=== PATIENT | female | born 1955 | race Caucasian/White ===

== ENCOUNTER → 2016-12-12 | Outpatient (CLI) | payer OTHER ==
[~2016-12-12] MED LIST: ALBINS INH; BRVIN INH; GLC5 PO; GLIP5TAB3 PO; INSDGIPEN SC; SIMV40TA2 PO; SITA1TAB27 PO; SULF800T23 PO
--- NOTE | 2016-12-12 14:07 | DIAGNOSTIC IMAGING REPORT ---
TWO VIEW CHEST CLINICAL HISTORY: Bronchiectasis exacerbation. FINDINGS: PA and lateral chest radiographs are compared to study dated 12/23/2015. Correlation is made with chest CT dated 10/13/2011. The PA view is degraded by patient rotation. The cardiomediastinal heart is enlarged and there is atherosclerotic calcification of the thoracic aorta. Pulmonary vasculature is noncongested. Chronic interstitial thickening is unchanged. There is patchy airspace consolidation the left mid to lower lung. A small left pleural effusion is noted. The right lung appears clear. There is no pneumothorax. The skeletal structures are osteopenic. The bony thorax appears intact. IMPRESSION: 1. There is patchy airspace consolidation an the left mid to lower lung and a small left pleural effusion. This likely represents pneumonia/aspiration pneumonitis. Clinical correlation will be required and radiographic follow-up to resolution is recommended. 2. Cardiac enlargement without radiographic evidence of congestive failure. Electronically signed by: Rosendo Murguia M.D. 12/12/2016 2:05 PM Dictated Date/Time: 12/12/2016 2:04 PM
== END | disposition home or self-care (01) ==
LOC: C.RAD1850 13:35
PROVIDERS: ATTEND Physician Assistant
DX: J47.1 Bronchiectasis with (acute) exacerbation (principal); J90 Pleural effusion, not elsewhere classified; I51.7 Cardiomegaly

== ENCOUNTER → 2017-01-08 | Outpatient (CLI) | payer OTHER ==
--- NOTE | 2017-01-08 14:58 | DIAGNOSTIC IMAGING REPORT ---
CHEST 2 VIEWS ROUTINE CLINICAL HISTORY: J18.9 [id number] pneumonia COMPARISON STUDY: 12/12/2016 FINDINGS: Improving left basilar parenchymal infiltrate. Minimal left basilar residual. Right lung remains clear. Mild stable cardiomegaly. IMPRESSION: Improving left basilar infiltrate with minimal residual. Mild chronic prominence of pulmonary vasculature. The above report was generated using voice recognition software. It may contain grammatical, syntax or spelling errors. Electronically signed by: Helio Hartley M.D. 01/08/2017 2:57 PM Dictated Date/Time: 01/08/2017 2:56 PM
== END | disposition home or self-care (01) ==
LOC: C.RAD1850 14:45
PROVIDERS: ATTEND Physician Assistant
DX: J18.9 Pneumonia, unspecified organism (principal)

== ENCOUNTER → 2017-08-29 | Outpatient (CLI) | payer OTHER ==
--- NOTE | 2017-08-29 13:06 | DIAGNOSTIC IMAGING REPORT ---
CHEST 2 VIEWS ROUTINE HISTORY: 62 years-old Female R05 [id number] Abnormal chest [id number] acute cough COMPARISON: Chest radiograph 11/07/2016, a 12/06/2016 and 12/23/2015 TECHNIQUE: PA and lateral views of the chest FINDINGS: Cardiac silhouette is upper limits of normal in size. Atherosclerosis of the aorta. Mild biapical pleural-parenchymal scarring without pneumothorax. The right lung is clear. No large pleural effusion. Persistent mild blunting of the left costophrenic angle with subsegmental left basilar opacities appear unchanged from most recent comparison study 01/08/2017. Bones of the chest appear grossly intact. IMPRESSION: Unchanged ill-defined opacities about the left lung base appear stable from comparison study 01/08/2017. Residual infectious or inflammatory pneumonitis or postinflammatory scarring are differential considerations. The above report was generated using voice recognition software. It may contain grammatical, syntax or spelling errors. Electronically signed by: Mark Funez M.D. 08/29/2017 1:05 PM Dictated Date/Time: 08/29/2017 1:03 PM
== END | disposition home or self-care (01) ==
LOC: C.RAD1850 12:46
PROVIDERS: ATTEND Physician Assistant
DX: R05 Cough (principal); R91.8 Other nonspecific abnormal finding of lung field

== ENCOUNTER 2020-10-29 19:38 | Inpatient (IN) ==
[2020-10-29] MEDS ORDERED: dexAMETHasone**PF** 10 MG/ML VIAL IV ONE (19:51)
[2020-10-29] MEDS ORDERED: ALBUT/IPRATROP 3MG/0.5MG NEB 3 ML VIAL NEB STA ×2 (19:51→21:38)
--- NOTE | 2020-10-29 20:00 | Emergency Department Note ---
Impression & Plan Acute exacerbation of chronic obstructive airways disease, Hypoxia, Elevated troponin I level, Acute UTI (urinary tract infection) ED Provider Note NAME: ANGELA SCHAEFER AGE: 65 SEX: F : 1955 ARRIVES VIA: Walk-In INFORMANT: Patient, ED PROVIDER(S): Roney Lewis DO CHIEF COMPLAINT: Difficulty breathing HPI: The patient is a 65-year-old female who presented to the emergency department with her significant other for an evaluation of difficulty breathing. The patient states that she was around relatives who are younger who are all having upper respiratory symptoms. She started having difficulty breathing over the course the last 3 days. Symptoms became significantly worse yesterday. She has a cough which is productive. She also complains of fever. She has a history of COPD as well as daily tobacco use. She states that she started having cough over the course of the last few days which is constant. She states she has no nausea or vomiting. She did have a fever. She does have oxygen at home but does not use it every day. She does have bronchodilator treatments at home she has been using all of her outpatient medication without relief. She states her symptoms are worsening significantly with any ambulation. She denies having any lower extremity swelling or pain. She was not seen by her primary care physician for the symptoms. ROS: See above HPI for pertinent positives & negatives. A total of 10 systems reviewed and were otherwise negative. PAST MEDICAL HISTORY: See Below PAST SURGICAL HISTORY: See Below FAMILY HISTORY: See Below SOCIAL HISTORY: See Below HOME MEDICATIONS: See Below ALLERGIES: See Below VITALS: See Below PHYSICAL EXAMINATION: GENERAL: The patient is awake and alert. She is very anxious appearing. EYES: The conjunctivae are clear. The pupils are round and reactive. EARS, NOSE, MOUTH AND THROAT: The nose is without any evidence of any deformity. NECK: The neck is nontender and supple. RESPIRATORY: Diminished breath sounds are noted throughout. Scattered rhonchi was noted in all lung buenrostro. There was significant conversational dyspnea. CARDIOVASCULAR: Regular rate and rhythm noted there no murmurs rubs or gallops normal S1 normal S2. GASTROINTESTINAL: The abdomen is soft. Abdomen is nontender. MUSCULOSKELETAL/EXTREMITIES: There is no evidence of gross deformity full range of motion is noted in the hips and shoulders. SKIN: There is no obvious evidence of any rash. There are no petechiae, pallor or cyanosis noted. NEUROLOGIC: Patient is awake alert and oriented x3. MEDICAL DECISION MAKING: The patient is a 65-year-old female who presented to the emergency department for an evaluation of difficulty breathing. The patient was found to have a fever as well as physical exam consistent with a COPD exacerbation. She was treated with IV steroids as well as bronchodilator therapy. She was reevaluated multiple times. She was found to have signs of urinary tract infection on urinalysis. She was started on IV antibiotic in the emergency department as well. She continued to have hypoxia and significant oxygen demand. For this reason I discussed her case with the on-call [facility]. They have agreed to evaluate the patient in the emergency department. Triage Nursing notes reviewed. Prior medical records reviewed Vital Signs: reviewed and remarkable for elevated blood pressure tachycardia and hypoxia. Differential diagnosis: Reactive airway disease, pneumonia, pneumothorax, COPD, CHF, infections, cardiac ischemia, pulmonary embolism, musculoskeletal, gastrointestinal, as well as other pathologies. ER treatment provided: See below Diagnostics interpreted by me: ECG: EKG was obtained in the emergency department. My interpretation is sinus tachycardia 100 bpm. There was no ectopy. Poor R wave progression was noted. This was compared to a tracing from September 292017. No significant changes were noted. Cardiac Monitoring: An order was placed for continuous cardiac monitoring. The monitor shows a rate of 108 bpm with sinus tachycardia rhythm. Laboratory studies: As stated above and show below. Imaging studies: See below Consultation(s): I discussed this case with Dr. Meng who is on-call for the [facility] group. She will evaluate the patient in the emergency department. ED COURSE: Procedures: none PDMP:reviewed and no issues Critical Care: I have personally spent greater than 45 minutes of critical care time in the direct management of this patient. This includes bedside care, interpretation of diagnostic studies, and testing, discussion with consultants, patient, and family members, and other required patient management activities. This 45 minutes is in excess of all separately billable procedures. Past Med/Surg History Medical History Bronchiectasis COPD (chronic obstructive pulmonary disease) History of pneumonia Hx of multiple pulmonary nodules Hypoxia MRSA (methicillin resistant Staphylococcus aureus) septicemia Recurrent bronchiectasis (11/01/11) Tobacco use Social History Smoking Status: Current every day smoker Tobacco Type: Cigarettes Preferred Language: Filipino Feels Safe at Home: Yes Allergies Allergies Allergy/AdvReac Type Severity Reaction Status Date / Time cephalexin Allergy Severe Unknown Verified 10/29/20 21:37 Iodinated Contrast Media Allergy Severe HIVES Verified 10/29/20 21:37 loracarbef Allergy Intermediate "THINK IT Verified 10/29/20 21:37 WAS A RASH" coffee (Coffea arabica) Allergy Unknown POSITIVE Verified 10/29/20 21:37 ALLERGY TEST mustard AdvReac Unknown POSITIVE Verified 10/29/20 21:37 ALLERGY TEST Home Meds Home Medications Medication Instructions Recorded Confirmed aspirin 81 mg tablet,delayed 81 mg PO DAILY 02/20/19 10/29/20 release metoprolol tartrate 25 mg tablet 25 mg PO BID 02/20/19 10/29/20 multivitamin 1 cap PO DAILY 02/20/19 10/29/20 pantoprazole 40 mg tablet,delayed 40 mg PO DAILY 02/20/19 10/29/20 release acetaminophen 325 mg tablet 325 mg PO Q4H PRN tab 10/03/19 10/29/20 apremilast [Otezla] 30 mg PO BID 10/29/20 10/29/20 clonazepam 1 mg PO BID PRN 10/29/20 10/29/20 ipratropium-albuterol 3 ml INH QID PRN 10/29/20 10/29/20 Previous Rx's Medication Instructions Recorded budesonide-formoterol HFA 160 2 puffs INH BID #10.2 gm 04/14/19 mcg-4.5 mcg/actuation aerosol inhaler albuterol sulfate 90 mcg/actuation 2 inh INH QID #18 g 12/08/19 aerosol inhaler tiotropium bromide 1.25 2 inh INHALATION DAILY #4 g 02/16/20 mcg/actuation mist for inhalation Results & Data (ED) Vital Signs Vital Signs - 24 hr 10/29/20 19:39 10/29/20 19:45 10/29/20 20:01 Temperature 37.7 C H Temperature Source Temporal Artery Scan Pulse Rate 105 H 99 H Pulse Rate [Apical] Pulse Rate from SpO2 Sensor 98 H Pulse Rhythm [Apical] Pulse Strength [Apical] Respiratory Rate 24 29 H Respiratory Effort / Characteristics Non-Labored Spontaneous Respiratory Depth Normal Normal Respiratory Pattern Regular Regular Blood Pressure 119/74 132/87 Blood Pressure Mean 89 102 Blood Pressure Position Sitting Pulse Oximetry 85 L 85 L 94 Oxygen Delivery Method Room Air Nasal Cannula Oxygen Flow Rate 3 Sepsis Recent Fever Within 48 Hours No Sepsis New/Unexplained Change in Mental Status No Sepsis Action Taken by Nursing No Action Required Pulse Oximetry Post Tiitration 93 10/29/20 20:07 10/29/20 20:16 10/29/20 21:00 Temperature Temperature Source Pulse Rate 104 H Pulse Rate [Apical] 101 H Pulse Rate from SpO2 Sensor 104 H Pulse Rhythm [Apical] Regular Pulse Strength [Apical] Normal Respiratory Rate 24 30 H Respiratory Effort / Characteristics Spontaneous Short of Breath Respiratory Depth Normal Respiratory Pattern Blood Pressure 128/79 Blood Pressure Mean 95 Blood Pressure Position Pulse Oximetry 93 3 L 95 Oxygen Delivery Method Nasal Cannula Nasal Cannula Oxygen Flow Rate 3 3 Sepsis Recent Fever Within 48 Hours Sepsis New/Unexplained Change in Mental Status Sepsis Action Taken by Nursing Pulse Oximetry Post Tiitration 10/29/20 21:34 10/29/20 21:52 10/29/20 22:00 Temperature Temperature Source Pulse Rate 103 H Pulse Rate [Apical] 101 H Pulse Rate from SpO2 Sensor 104 H Pulse Rhythm [Apical] Pulse Strength [Apical] Respiratory Rate 20 22 32 H Respiratory Effort / Characteristics Short of Breath Spontaneous Respiratory Depth Respiratory Pattern Blood Pressure 145/90 H Blood Pressure Mean 108 Blood Pressure Position Pulse Oximetry 91 91 91 Oxygen Delivery Method Nasal Cannula Nasal Cannula Oxygen Flow Rate 3 Sepsis Recent Fever Within 48 Hours Sepsis New/Unexplained Change in Mental Status Sepsis Action Taken by Nursing Pulse Oximetry Post Tiitration Home Medications Current Medication List: was personally reviewed by me Laboratory Data Attestation: I reviewed the patient's lab results. Result diagrams: 10/29/20 20:17 10/29/20 20:17 Lab Results 10/29/20 10/29/20 10/29/20 Range/Units 20:02 20:02 20:17 WBC 11.15 H (4.8-10.8) K/uL RBC 4.64 (4.2-5.4) M/uL Hgb 13.5 (12.0-16.0) g/dL Hct 41.0 (37-47) % MCV 88.4 (80-100) fL MCH 29.1 (25-34) pg MCHC 32.9 (32-36) g/dL RDW Std Deviation 43.1 (36.4-46.3) fL RDW Coeff of Tommy 13.3 (11.5-14.5) % Plt Count 241 (130-400) K/uL MPV 10.9 H (7.4-10.4) fL Immature Gran % (Auto) 0.2 % Neut % (Auto) 75.6 % Lymph % (Auto) 15.4 % [place] % (Auto) 7.8 % Eos % (Auto) 0.9 % Baso % (Auto) 0.1 % Neut # (Auto) 8.43 H (1.4-6.5) K/uL Lymph # (Auto) 1.72 (1.2-3.4) K/uL [place] # (Auto) 0.87 H (0.11-0.59) K/uL Eos # (Auto) 0.10 (0-0.5) K/uL Baso # (Auto) 0.01 (0-0.2) K/uL Immature Gran # (Auto) 0.02 (0.00-0.02) K/uL PT (9.0-12.0) Seconds INR (0.9-1.1) APTT (21.0-31.0) Seconds PTT Ratio VBG pH (7.36-7.41) VBG pCO2 (38-50) mmHg VBG pO2 mmHg VBG HCO3 mmol/L VBG O2 Saturation % VBG Base Excess mEq/L Barometric Pressure mm/Hg Sodium (136-145) mmol/L Potassium (3.5-5.1) mmol/L Chloride (98-107) mmol/L Carbon Dioxide (21-32) mmol/L Anion Gap (3-11) BUN (7-18) mg/dl Creatinine (0.6-1.2) mg/dl Est Cr Clr Drug Dosing Est GFR ( Amer) ml/min Est GFR (Non-Af Amer) ml/min BUN/Creatinine Ratio (10-20) Glucose (70-99) mg/dl Lactate (0.4-2.0) mmol/L Calcium (8.5-10.1) mg/dl Magnesium (1.8-2.4) mg/dl Total Bilirubin (0.2-1) mg/dl AST (15-37) U/L ALT (12-78) U/L Alkaline Phosphatase (45-117) U/L Troponin I (0-0.045) ng/ml Total Protein (6.4-8.2) gm/dl Albumin (3.4-5.0) gm/dl Globulin (2.5-4.0) gm/dl Albumin/Globulin Ratio (0.9-2) Procalcitonin (0-0.5) ng/ml Urine Color Urine Appearance (Clear) Urine pH (4.5-7.5) Ur Specific [place] (1.000-1.030) Urine Protein (Negative) Urine Glucose (UA) (Negative) Urine Ketones (Negative) Urine Blood (Negative) Urine Nitrite (Negative) Urine Bilirubin (Negative) Urine Urobilinogen (Negative) Ur Leukocyte Esterase (Negative) Urine WBC (Auto) (0-5) /hpf Urine RBC (Auto) (0-4) /hpf U Hyaline Cast (Auto) (0-5) /lpf U Epithel Cells (Auto) (0-5) /lpf Urine Bacteria (Auto) (Negative) COVID-19 Eval Order Covid19 at [facility] SARS-CoV-2 (PCR) NEGATIVE (Negative) 10/29/20 10/29/20 10/29/20 Range/Units 20:17 20:17 20:17 WBC (4.8-10.8) K/uL RBC (4.2-5.4) M/uL Hgb (12.0-16.0) g/dL Hct (37-47) % MCV (80-100) fL MCH (25-34) pg MCHC (32-36) g/dL RDW Std Deviation (36.4-46.3) fL RDW Coeff of Tommy (11.5-14.5) % Plt Count (130-400) K/uL MPV (7.4-10.4) fL Immature Gran % (Auto) % Neut % (Auto) % Lymph % (Auto) % [place] % (Auto) % Eos % (Auto) % Baso % (Auto) % Neut # (Auto) (1.4-6.5) K/uL Lymph # (Auto) (1.2-3.4) K/uL [place] # (Auto) (0.11-0.59) K/uL Eos # (Auto) (0-0.5) K/uL Baso # (Auto) (0-0.2) K/uL Immature Gran # (Auto) (0.00-0.02) K/uL PT 10.7 (9.0-12.0) Seconds INR 1.1 (0.9-1.1) APTT 26.7 (21.0-31.0) Seconds PTT Ratio 1.0 VBG pH (7.36-7.41) VBG pCO2 (38-50) mmHg VBG pO2 mmHg VBG HCO3 mmol/L VBG O2 Saturation % VBG Base Excess mEq/L Barometric Pressure mm/Hg Sodium 131 L (136-145) mmol/L Potassium 4.2 (3.5-5.1) mmol/L Chloride 99 (98-107) mmol/L Carbon Dioxide 26 (21-32) mmol/L Anion Gap 6.0 (3-11) BUN 12 (7-18) mg/dl Creatinine 0.82 (0.6-1.2) mg/dl Est Cr Clr Drug Dosing Not Reportable Est GFR ( Amer) 87.0 ml/min Est GFR (Non-Af Amer) 75.1 ml/min BUN/Creatinine Ratio 14.7 (10-20) Glucose 121 H (70-99) mg/dl Lactate 0.9 (0.4-2.0) mmol/L Calcium 10.8 H (8.5-10.1) mg/dl Magnesium 1.6 L (1.8-2.4) mg/dl Total Bilirubin 0.5 (0.2-1) mg/dl AST 47 H (15-37) U/L ALT 45 (12-78) U/L Alkaline Phosphatase 214 H (45-117) U/L Troponin I 0.068 H* (0-0.045) ng/ml Total Protein 7.9 (6.4-8.2) gm/dl Albumin 3.3 L (3.4-5.0) gm/dl Globulin 4.6 H (2.5-4.0) gm/dl Albumin/Globulin Ratio 0.7 L (0.9-2) Procalcitonin (0-0.5) ng/ml Urine Color Urine Appearance (Clear) Urine pH (4.5-7.5) Ur Specific [place] (1.000-1.030) Urine Protein (Negative) Urine Glucose (UA) (Negative) Urine Ketones (Negative) Urine Blood (Negative) Urine Nitrite (Negative) Urine Bilirubin (Negative) Urine Urobilinogen (Negative) Ur Leukocyte Esterase (Negative) Urine WBC (Auto) (0-5) /hpf Urine RBC (Auto) (0-4) /hpf U Hyaline Cast (Auto) (0-5) /lpf U Epithel Cells (Auto) (0-5) /lpf Urine Bacteria (Auto) (Negative) COVID-19 Eval Order SARS-CoV-2 (PCR) (Negative) 10/29/20 10/29/20 10/29/20 Range/Units 20:17 20:17 20:57 WBC (4.8-10.8) K/uL RBC (4.2-5.4) M/uL Hgb (12.0-16.0) g/dL Hct (37-47) % MCV (80-100) fL MCH (25-34) pg MCHC (32-36) g/dL RDW Std Deviation (36.4-46.3) fL RDW Coeff of Tommy (11.5-14.5) % Plt Count (130-400) K/uL MPV (7.4-10.4) fL Immature Gran % (Auto) % Neut % (Auto) % Lymph % (Auto) % [place] % (Auto) % Eos % (Auto) % Baso % (Auto) % Neut # (Auto) (1.4-6.5) K/uL Lymph # (Auto) (1.2-3.4) K/uL [place] # (Auto) (0.11-0.59) K/uL Eos # (Auto) (0-0.5) K/uL Baso # (Auto) (0-0.2) K/uL Immature Gran # (Auto) (0.00-0.02) K/uL PT (9.0-12.0) Seconds INR (0.9-1.1) APTT (21.0-31.0) Seconds PTT Ratio VBG pH 7.45 H (7.36-7.41) VBG pCO2 38 (38-50) mmHg VBG pO2 64 mmHg VBG HCO3 26 mmol/L VBG O2 Saturation 94.1 % VBG Base Excess 1.7 mEq/L Barometric Pressure 731.1 mm/Hg Sodium (136-145) mmol/L Potassium (3.5-5.1) mmol/L Chloride (98-107) mmol/L Carbon Dioxide (21-32) mmol/L Anion Gap (3-11) BUN (7-18) mg/dl Creatinine (0.6-1.2) mg/dl Est Cr Clr Drug Dosing Est GFR ( Amer) ml/min Est GFR (Non-Af Amer) ml/min BUN/Creatinine Ratio (10-20) Glucose (70-99) mg/dl Lactate (0.4-2.0) mmol/L Calcium (8.5-10.1) mg/dl Magnesium (1.8-2.4) mg/dl Total Bilirubin (0.2-1) mg/dl AST (15-37) U/L ALT (12-78) U/L Alkaline Phosphatase (45-117) U/L Troponin I (0-0.045) ng/ml Total Protein (6.4-8.2) gm/dl Albumin (3.4-5.0) gm/dl Globulin (2.5-4.0) gm/dl Albumin/Globulin Ratio (0.9-2) Procalcitonin < 0.05 (0-0.5) ng/ml Urine Color Dark Yellow Urine Appearance Turbid A (Clear) Urine pH 6.0 (4.5-7.5) Ur Specific [place] 1.019 (1.000-1.030) Urine Protein 1+ H (Negative) Urine Glucose (UA) Negative (Negative) Urine Ketones Trace H (Negative) Urine Blood 1+ H (Negative) Urine Nitrite Negative (Negative) Urine Bilirubin 1+ H (Negative) Urine Urobilinogen Negative (Negative) Ur Leukocyte Esterase 3+ H (Negative) Urine WBC (Auto) >30 H (0-5) /hpf Urine RBC (Auto) 10-30 H (0-4) /hpf U Hyaline Cast (Auto) 1-5 (0-5) /lpf U Epithel Cells (Auto) >30 H (0-5) /lpf Urine Bacteria (Auto) 4+ H (Negative) COVID-19 Eval Order SARS-CoV-2 (PCR) (Negative) Administered Medications Discontinued Medications Albuterol (Albut/Ipratrop 3mg/0.5mg Neb 3 Ml Vial) 3 ml NEB NOW STA Stop: 10/29/20 19:52 Last Admin: 10/29/20 20:06 Dose: 3 ml Documented by: [id number] Albuterol (Albut/Ipratrop 3mg/0.5mg Neb 3 Ml Vial) 3 ml NEB NOW STA Stop: 10/29/20 21:39 Last Admin: 10/29/20 21:52 Dose: 3 ml Documented by: [id number] Dexamethasone Sodium Phosphate (DexamethasonePf 10 Mg/Ml Vial) 10 mg IV NOW ONE Stop: 10/29/20 19:52 Last Admin: 10/29/20 20:56 Dose: 10 mg Documented by: [id number] Magnesium Sulfate/Dextrose (Magnesium Sulfate / D5w) 1 gm in 100 mls @ 100 mls/hr IV Q1H JOSE R Stop: 10/29/20 23:07 Last Admin: 10/29/20 22:34 Dose: 100 mls/hr Documented by: [id number] Infusion: 10/29/20 22:33 Dose: 100 mls/hr Documented by: [id number] Admin: 10/29/20 21:33 Dose: 100 mls/hr Documented by: [id number] Imaging Data Radiologist's Impression: Chest X-Ray 10/29/20 19:51 XR chest 1V portable HISTORY: 65 years-old Female SEPSIS acute sepsis COMPARISON: 10/07/2019, chest CT 10/04/2017. TECHNIQUE: Portable AP view of the chest FINDINGS: Cardiac silhouette is enlarged. Mild bibasilar opacities, left greater than right appear unchanged. Degenerative changes of the shoulders and spine. No pneumothorax, pleural effusion or overt pulmonary edema. IMPRESSION: 1. Cardiomegaly without pulmonary edema. 2. Unchanged left greater than right bibasilar atelectasis/fibrosis ACT 112: Negative or not required by law. The above report was generated using voice recognition software. It may contain grammatical, syntax or spelling errors. Electronically signed by: Pepe Funez M.D. 10/29/2020 9:16 PM Discharge Plan Visit Data Chief Complaint: Shortness of Breath/Dyspnea Stated Complaint: SOB ED Provider: Roney Lewis Discharge Problem: Acute exacerbation of chronic obstructive airways disease, Hypoxia, Elevated troponin I level, Acute UTI (urinary tract infection) Patient Disposition: Admitted As Inpatient Condition: Good Discharge Instructions Interventions: ED Discharge Assessment Last Done: 10/29/20 23:25
[2020-10-29 20:31] LABS: Basophils # (auto) 0.01 K/uL (0-0.2); Basophils % (auto) 0.1 %; Eosinophils % (auto) 0.9 %; Hemoglobin 13.5 g/dL (12.0-16.0); Immature Granulocytes # (auto) 0.02 K/uL (0.00-0.02); Immature Granulocytes % (auto) 0.2 %; Lymphocytes # (auto) 1.72 K/uL (1.2-3.4); Lymphocytes % (auto) 15.4 %; Mean Corpuscular Hemoglobin 29.1 pg (25-34); Mean Corpuscular Hgb Conc 32.9 g/dL (32-36); Mean Corpuscular Volume 88.4 fL (80-100); Mean Platelet Volume 10.9 fL (7.4-10.4); Monocytes # (auto) 0.87 K/uL (0.11-0.59); Monocytes % (auto) 7.8 %; Neutrophils # (auto) 8.43 K/uL (1.4-6.5); Neutrophils % (auto) 75.6 %; Platelet Count 241 K/uL (130-400); RDW Coefficient of Variation 13.3 % (11.5-14.5); RDW Standard Deviation 43.1 fL (36.4-46.3); Red Blood Count 4.64 M/uL (4.2-5.4); White Blood Count 11.15 K/uL (4.8-10.8)
[2020-10-29 20:37] LABS: Base Excess VBG 1.7 mEq/L; Oxygen Saturation VBG 94.1 %; pH VBG 7.45 (7.36-7.41)
[2020-10-29 20:42] LABS: INR 1.1 (0.9-1.1); Partial Thromboplastin Time 26.7 Seconds (21.0-31.0); Prothrombin Time 10.7 Seconds (9.0-12.0)
[2020-10-29 20:49] LABS: Alanine Aminotransferase 45 U/L (12-78); Albumin Level 3.3 gm/dl (3.4-5.0); Aspartate Aminotransferase 47 U/L (15-37); BUN Creatinine Ratio 14.7 (10-20); Blood Urea Nitrogen 12 mg/dl (7-18); Calcium 10.8 mg/dl (8.5-10.1); Carbon Dioxide 26 mmol/L (21-32); Chloride 99 mmol/L (98-107); Est GFR (Non-African American) 75.1 ml/min; Glucose 121 mg/dl (70-99); Magnesium 1.6 mg/dl (1.8-2.4); Potassium 4.2 mmol/L (3.5-5.1); Sodium 131 mmol/L (136-145)
[2020-10-29 21:00] LABS: Albumin Globulin Ratio 0.7 (0.9-2); Alkaline Phosphatase 214 U/L (45-117); Bilirubin,Total 0.5 mg/dl (0.2-1); Globulin 4.6 gm/dl (2.5-4.0); Total Protein 7.9 gm/dl (6.4-8.2); Troponin I 0.068 ng/ml (0-0.045)
--- NOTE | 2020-10-29 21:18 | XRay Report ---
XR chest 1V portable HISTORY: 65 years-old Female SEPSIS acute sepsis COMPARISON: 10/07/2019, chest CT 10/04/2017. TECHNIQUE: Portable AP view of the chest FINDINGS: Cardiac silhouette is enlarged. Mild bibasilar opacities, left greater than right appear unchanged. D egenerative changes of the shoulders and spine. No pneumothorax, pleural effusion or overt pulmonary edema. IMPRESSION: 1. Cardiomegaly without pulmonary edema. 2. Unchanged left greater than right bibasilar atelectasis/fibrosis ACT 112: Negative or not required by law. The above report was generated using voice recognition software. It may contain grammatical, syntax o r spelling errors. Electronically signed by: Pepe Funez M.D. 10/29/2020 9:16 PM
[2020-10-29 21:25] LABS: Appearance Urine Turbid (Clear); Bacteria Urine Automated 4+ (Negative); Blood Urine 1+ (Negative); Color Urine Dark Yellow; Epithelial Cell Urine Auto >30 /lpf (0-5); Glucose Urine UA Negative (Negative); Ketones Urine Trace (Negative); Leukocyte Esterase Urine 3+ (Negative); Nitrite Urine Negative (Negative); Protein Urine 1+ (Negative); Specific Gravity Urine 1.019 (1.000-1.030); Urobilinogen Urine Negative (Negative); WBC Urine Automated >30 /hpf (0-5)
[2020-10-29 21:30] LABS: Bilirubin Urine 1+ (Negative)
[2020-10-29] MEDS: MAGNESIUM SULFATE / D5W 1 GM/100 ML BAG IV SCH ×2 (21:33→22:34)
[2020-10-29] MEDS ORDERED: levoFLOXacin/D5W 750 MG/150 ML BAG IV STA (21:38)
--- NOTE | 2020-10-29 22:38 | History & Physical Report ---
Date of Service October 29, 2020 Assessment & Plan (1) Acute exacerbation of chronic obstructive airways disease: 65yo female with history of COPD, bronchiectasis, MRSA pulmonary infection presents with several days of fever/chills/SOB/nausea. Patient hypoxic on arrival requiring supplemental O2. Labs significant for elevated troponin and BNP. CXR unremarkable. Ddx to include acute exacerbation of COPD, bronchiectasis, developing PNA. ?CHF with elevated troponin and BNP - patient with no history of CHF. Does not appear volume overloaded on exam -Admit to PCU -Follow cultures -DuoNebs q 6 hours -Albuterol q 2 hours as needed -Continue Fluticasone/Vilanterol -Solumedrol 40mg IV TID -Tessalon PRN -Mucinex BID -Hypertonic saline nebs BID -Flutter valve -Empiric antibiotic coverage with Vancomycin and Cefepime in patient with history of MRSA PNA/bacteremia and bronchiectasis -Tylenol PRN pain or fever -Supplemental O2 as needed to maintain sats 88 - 92% -Patient Covid-19 NEGATIVE as tested in ER. She has been vaccinated x 2 with last dose being in May -[employer] panel requested -Consider CT chest Present on Admission?: Yes (2) Elevated troponin I level: Patient denies chest pain. EKG with non-specific changes -Trend troponin -Check 2D echo in AM -Continue ASA 81mg daily -Continue Metoprolol Present on Admission?: Yes (3) Recurrent bronchiectasis: As above -Vancomycin and Cefepime -Nebs, saline nebs Present on Admission?: Yes (4) Abnormal LFTs: Elevated AST and AP. Bili is WNL -Repeat in AM Present on Admission?: Yes (5) Psoriasis: Chronic -Continue Otezla (non-formulary), patient may take own if she has it F/E/N - Heplock. Mg repletion, monitor Na, regular diet as tolerated Ppx - Lovenox Code - Full Dispo - Admit to PCU Present on Admission?: Yes History of Present Illness Chief Complaint: SOB Primary Care Provider: Marta Greenwood Izabela Simms is a 65yo female with history of COPD, Bronchiectasis and prior MRSA infection presenting with 3-4 days of progressive SOB. Patient [place] and states that several family members were getting over URIs/illnesses. She reports developing a stuffy nose and headache 4-5 days ago then cough, fever/chills and SOB as well as nausea, diarrhea and fatigue. Symptoms progressive. She was extremely short of breath today. She denies cough, wheeze or sputum production. Denies chest pain or palpitations. No dysuria, abdominal pain Patient follows with Pulmonary for her history of bronchiectasis - last seen 09/2019 Patient with elevated temperature on arrival to ER at 37.7, tachycardic, tachypneic and hypoxic to 85% on room air. SHe was placed on NC with improvement ER Course: Albuterol, Dexamethasone 10mg IV, Magnesium 1gm Allergies Allergy/AdvReac Type Severity Reaction Status Date / Time cephalexin Allergy Severe Unknown Verified 10/29/20 21:37 Iodinated Contrast Media Allergy Severe HIVES Verified 10/29/20 21:37 loracarbef Allergy Intermediate "THINK IT Verified 10/29/20 21:37 WAS A RASH" coffee (Coffea arabica) Allergy Unknown POSITIVE Verified 10/29/20 21:37 ALLERGY TEST mustard AdvReac Unknown POSITIVE Verified 10/29/20 21:37 ALLERGY TEST Home Medications Medication Instructions Recorded Confirmed Type aspirin 81 mg tablet,delayed 81 mg PO DAILY 02/20/19 10/29/20 History release metoprolol tartrate 25 mg tablet 25 mg PO BID 02/20/19 10/29/20 History multivitamin 1 cap PO DAILY 02/20/19 10/29/20 History pantoprazole 40 mg tablet,delayed 40 mg PO DAILY 02/20/19 10/29/20 History release budesonide-formoterol HFA 160 2 puffs INH BID #10.2 gm 04/14/19 10/29/20 Rx mcg-4.5 mcg/actuation aerosol inhaler acetaminophen 325 mg tablet 325 mg PO Q4H PRN tab 10/03/19 10/29/20 History albuterol sulfate 90 mcg/actuation 2 inh INH QID #18 g 12/08/19 10/29/20 Rx aerosol inhaler tiotropium bromide 1.25 2 inh INHALATION DAILY #4 g 02/16/20 10/29/20 Rx mcg/actuation mist for inhalation apremilast [Otezla] 30 mg PO BID 10/29/20 10/29/20 History clonazepam 1 mg PO BID PRN 10/29/20 10/29/20 History ipratropium-albuterol 3 ml INH QID PRN 10/29/20 10/29/20 History Past Med/Surg History Medical History Bronchiectasis COPD (chronic obstructive pulmonary disease) History of pneumonia Hx of multiple pulmonary nodules Hypoxia MRSA (methicillin resistant Staphylococcus aureus) septicemia Psoriasis Recurrent bronchiectasis (11/01/11) Tobacco use Surgical History (Updated 10/30/20 @ 02:47 by Thais Meng DO) No significant past surgical history Social History Smoking Status: Current every day smoker Tobacco Type: Cigarettes Second Hand Exposure: No; Do You Dip or Chew Tobacco: No; Tobacco Cessation Education Requested by Patient: No Hx Alcohol Use: No Hx Substance Use: No Preferred Language: Swazi Communication Ability: Effective Beliefs That Will Affect Care: None Current Living Situation: Spouse Other Information That Helps Us Care for You: No Feels Safe at Home: Yes Safety Concerns: Feels Safe At This Time Assistive Devices: Oxygen - Continuous Assistive Devices Comment: 2L Review of Systems Review of Systems: All systems reviewed & are unremarkable except as noted in HPI & below Physical Exam Physical Exam: General: NAD, ill in appearance but non-toxic in appearance, AA&O x 4 Skin: warm, dry, intact, no rashes or lesions HEENT: NC/AT, PERRL, EOMI, anicteric sclera, conjunctiva without injection, external ear normal to inspection and nontender, nares patent, moist mucus membranes, dentition intact, no oropharyngeal lesions, neck supple, trachea midline, no LAD, no thyromegaly, no JVD Heart: +S1/S2, regular, tachycardic, no m/r/g Lungs: slightly tachypneic, equal air entry bilaterally, coarse breath sounds with diffuse rhonchi, scattered end-expiratory wheezing Abd: +BS, soft, NT/ND, no masses/organomegaly/ascites Ext: warm, 2+ pulses in UE/LE bilaterally, no clubbing/cyanosis or edema, firm nodule in left axilla, slightly tender Neuro: nonfocal, patient AA&O x 4, speech intact, no facial droop, moving all extremities on command with equal strength 5/5 Results & Data Results & Data ([facility]) Vital Signs (Past 12 Hours) Vital Signs Temp Pulse Pulse Resp BP Pulse Ox 10/29/20 21:52 101 H 22 91 10/29/20 21:34 20 91 10/29/20 21:00 104 H 30 H 128/79 95 10/29/20 20:16 3 L 10/29/20 20:07 101 H 24 93 10/29/20 20:01 99 H 29 H 132/87 94 10/29/20 19:45 85 L 10/29/20 19:39 37.7 C H 105 H 24 119/74 85 L Laboratory Results Laboratory Results WBC 11.15 K/uL (4.8-10.8) H 10/29/20 20:17 RBC 4.64 M/uL (4.2-5.4) 10/29/20 20:17 Hgb 13.5 g/dL (12.0-16.0) 10/29/20 20:17 Hct 41.0 % (37-47) 10/29/20 20:17 MCV 88.4 fL (80-100) 10/29/20 20:17 MCH 29.1 pg (25-34) 10/29/20 20:17 MCHC 32.9 g/dL (32-36) 10/29/20 20:17 RDW Std Deviation 43.1 fL (36.4-46.3) 10/29/20 20:17 RDW Coeff of Tommy 13.3 % (11.5-14.5) 10/29/20 20:17 Plt Count 241 K/uL (130-400) 10/29/20 20:17 MPV 10.9 fL (7.4-10.4) H 10/29/20 20:17 Immature Gran % (Auto) 0.2 % 10/29/20 20:17 Neut % (Auto) 75.6 % 10/29/20 20:17 Lymph % (Auto) 15.4 % 10/29/20 20:17 Scott % (Auto) 7.8 % 10/29/20 20:17 Eos % (Auto) 0.9 % 10/29/20 20:17 Baso % (Auto) 0.1 % 10/29/20 20:17 Neut # (Auto) 8.43 K/uL (1.4-6.5) H 10/29/20 20:17 Lymph # (Auto) 1.72 K/uL (1.2-3.4) 10/29/20 20:17 Scott # (Auto) 0.87 K/uL (0.11-0.59) H 10/29/20 20:17 Eos # (Auto) 0.10 K/uL (0-0.5) 10/29/20 20:17 Baso # (Auto) 0.01 K/uL (0-0.2) 10/29/20 20:17 Immature Gran # (Auto) 0.02 K/uL (0.00-0.02) 10/29/20 20:17 PT 10.7 Seconds (9.0-12.0) 10/29/20 20:17 INR 1.1 (0.9-1.1) 10/29/20 20:17 APTT 26.7 Seconds (21.0-31.0) 10/29/20 20:17 PTT Ratio 1.0 10/29/20 20:17 VBG pH 7.45 (7.36-7.41) H 10/29/20 20:17 VBG pCO2 38 mmHg (38-50) 10/29/20 20:17 VBG pO2 64 mmHg 10/29/20 20:17 VBG HCO3 26 mmol/L 10/29/20 20:17 VBG O2 Saturation 94.1 % 10/29/20 20:17 VBG Base Excess 1.7 mEq/L 10/29/20 20:17 Barometric Pressure 731.1 mm/Hg 10/29/20 20:17 Sodium 131 mmol/L (136-145) L 10/29/20 20:17 Potassium 4.2 mmol/L (3.5-5.1) 10/29/20 20:17 Chloride 99 mmol/L (98-107) 10/29/20 20:17 Carbon Dioxide 26 mmol/L (21-32) 10/29/20 20:17 Anion Gap 6.0 (3-11) 10/29/20 20:17 BUN 12 mg/dl (7-18) 10/29/20 20:17 Creatinine 0.82 mg/dl (0.6-1.2) 10/29/20 20:17 Est Cr Clr Drug Dosing Not Reportable 10/29/20 20:17 Est GFR ( Amer) 87.0 ml/min 10/29/20 20:17 Est GFR (Non-Af Amer) 75.1 ml/min 10/29/20 20:17 BUN/Creatinine Ratio 14.7 (10-20) 10/29/20 20:17 Glucose 121 mg/dl (70-99) H 10/29/20 20:17 Lactate 0.9 mmol/L (0.4-2.0) 10/29/20 20:17 Calcium 10.8 mg/dl (8.5-10.1) H 10/29/20 20:17 Magnesium 1.6 mg/dl (1.8-2.4) L 10/29/20 20:17 Total Bilirubin 0.5 mg/dl (0.2-1) 10/29/20 20:17 AST 47 U/L (15-37) H 10/29/20 20:17 ALT 45 U/L (12-78) 10/29/20 20:17 Alkaline Phosphatase 214 U/L (45-117) H 10/29/20 20:17 Troponin I 0.068 ng/ml (0-0.045) H* 10/29/20 20:17 NT-Pro-B Natriuret Pep 1956 pg/ml (0-900) H 10/29/20 20:17 Total Protein 7.9 gm/dl (6.4-8.2) 10/29/20 20:17 Albumin 3.3 gm/dl (3.4-5.0) L 10/29/20 20:17 Globulin 4.6 gm/dl (2.5-4.0) H 10/29/20 20:17 Albumin/Globulin Ratio 0.7 (0.9-2) L 10/29/20 20:17 Procalcitonin < 0.05 ng/ml (0-0.5) 10/29/20 20:17 Urine Color Dark Yellow 10/29/20 20:57 Urine Appearance Turbid (Clear) A 10/29/20 20:57 Urine pH 6.0 (4.5-7.5) 10/29/20 20:57 Ur Specific [place] 1.019 (1.000-1.030) 10/29/20 20:57 Urine Protein 1+ (Negative) H 10/29/20 20:57 Urine Glucose (UA) Negative (Negative) 10/29/20 20:57 Urine Ketones Trace (Negative) H 10/29/20 20:57 Urine Blood 1+ (Negative) H 10/29/20 20:57 Urine Nitrite Negative (Negative) 10/29/20 20:57 Urine Bilirubin 1+ (Negative) H 10/29/20 20:57 Urine Urobilinogen Negative (Negative) 10/29/20 20:57 Ur Leukocyte Esterase 3+ (Negative) H 10/29/20 20:57 Urine WBC (Auto) >30 /hpf (0-5) H 10/29/20 20:57 Urine RBC (Auto) 10-30 /hpf (0-4) H 10/29/20 20:57 U Hyaline Cast (Auto) 1-5 /lpf (0-5) 10/29/20 20:57 U Epithel Cells (Auto) >30 /lpf (0-5) H 10/29/20 20:57 Urine Bacteria (Auto) 4+ (Negative) H 10/29/20 20:57 COVID-19 Eval Order Covid19 at [facility] 10/29/20 20:02 SARS-CoV-2 (PCR) NEGATIVE (Negative) 10/29/20 20:02 Impressions Chest X-Ray 10/29/20 19:51 XR chest 1V portable HISTORY: 65 years-old Female SEPSIS acute sepsis COMPARISON: 10/07/2019, chest CT 10/04/2017. TECHNIQUE: Portable AP view of the chest FINDINGS: Cardiac silhouette is enlarged. Mild bibasilar opacities, left greater than right appear unchanged. Degenerative changes of the shoulders and spine. No pneumothorax, pleural effusion or overt pulmonary edema. IMPRESSION: 1. Cardiomegaly without pulmonary edema. 2. Unchanged left greater than right bibasilar atelectasis/fibrosis ACT 112: Negative or not required by law. The above report was generated using voice recognition software. It may contain grammatical, syntax or spelling errors. Electronically signed by: Pepe Funez M.D. 10/29/2020 9:16 PM ECG Additional Comments: EKG with NSR at 100, normal axis, no acute ischemic changes, nonspecific ST-T wave abnormalities PG Care Time/CCT Total # of Minutes Spent Total Time Spent with Patient: Total time spent is greater than 50% in coordination of care (as documented) at patient's floor/unit and/or counseling patient: Coding Level of Care Code 82204 Initial Inpt Care Lvl 3 Diagnoses Acute exacerbation of chronic obstructive airways disease J44.1 Elevated troponin I level R77.8 Recurrent bronchiectasis J47.9 Abnormal LFTs R94.5 Psoriasis L40.9
[2020-10-29] MEDS ORDERED: ALBUTEROL 0.5% NEB SOLN 2.5 MG/0.5 ML VIAL NEB PRN (23:53)
[2020-10-29] MEDS ORDERED: ONDANSETRON INJ 2 MG/ML 2 ML VIAL IV PRN (23:53)
[2020-10-29] MEDS ORDERED: VANCOMYCIN CONSULT ACTIVE PRN (23:53)
[2020-10-29] MEDS ORDERED: ACETAMINOPHEN 325 MG TAB PO PRN (23:53)
[2020-10-30] MEDS ORDERED: SODIUM CHLORIDE 0.9% 1000ML 1,000 ML IV SCH (00:15)
[2020-10-30 00:16] LABS: NT Pro B Type Natriuretic Pept 1956 pg/ml (0-900)
[2020-10-30] MEDS ORDERED: VANCOMYCIN HCL 2,000 MG in SODIUM CHLORIDE 0.9% 500 ML IV STA (00:21)
[2020-10-30] MEDS: CEFEPIME 2,000 MG in SYRINGE 0 ML IV SCH ×2 (00:48→09:30)
[2020-10-30] MEDS: ALBUT/IPRATROP 3MG/0.5MG NEB 3 ML VIAL INH SCH ×3 (07:25→15:37)
[2020-10-30] MEDS: SODIUM CHLOR 7% 4 ML NEB NEB SCH ×2 (07:25→19:12)
[2020-10-30 07:36] LABS: Basophils # (auto) 0.01 K/uL (0-0.2); Basophils % (auto) 0.1 %; Hematocrit (blood only) 39.4 % (37-47); Hemoglobin 12.7 g/dL (12.0-16.0); Immature Granulocytes # (auto) 0.02 K/uL (0.00-0.02); Immature Granulocytes % (auto) 0.2 %; Lymphocytes # (auto) 0.81 K/uL (1.2-3.4); Lymphocytes % (auto) 8.5 %; Mean Corpuscular Hemoglobin 29.1 pg (25-34); Mean Corpuscular Hgb Conc 32.2 g/dL (32-36); Mean Corpuscular Volume 90.4 fL (80-100); Mean Platelet Volume 10.8 fL (7.4-10.4); Monocytes # (auto) 0.24 K/uL (0.11-0.59); Monocytes % (auto) 2.5 %; Neutrophils # (auto) 8.49 K/uL (1.4-6.5); Neutrophils % (auto) 88.7 %; Platelet Count 255 K/uL (130-400); RDW Coefficient of Variation 13.3 % (11.5-14.5); RDW Standard Deviation 44.2 fL (36.4-46.3); Red Blood Count 4.36 M/uL (4.2-5.4); White Blood Count 9.57 K/uL (4.8-10.8)
[2020-10-30 08:01] LABS: Alanine Aminotransferase 39 U/L (12-78); Aspartate Aminotransferase 30 U/L (15-37); BUN Creatinine Ratio 18.1 (10-20); Bilirubin Direct 0.1 mg/dl (0-0.2); Blood Urea Nitrogen 13 mg/dl (7-18); Calcium 10.1 mg/dl (8.5-10.1); Carbon Dioxide 26 mmol/L (21-32); Chloride 104 mmol/L (98-107); Creatinine Clr Calc Pharmacy 80.9 ml/min; Est GFR (African American) 103.6 ml/min; Est GFR (Non-African American) 89.4 ml/min; Glucose 260 mg/dl (70-99); Potassium 4.2 mmol/L (3.5-5.1); Sodium 135 mmol/L (136-145)
[2020-10-30 08:06] LABS: Alkaline Phosphatase 197 U/L (45-117); Bilirubin,Total 0.3 mg/dl (0.2-1); Total Protein 7.4 gm/dl (6.4-8.2); Troponin I < 0.015 ng/ml (0-0.045)
--- NOTE | 2020-10-30 08:29 | Hospitalist Progress Note ---
Date of Service October 30, 2020 Assessment & Plan (1) Acute exacerbation of chronic obstructive airways disease: 65 yo F with hx COPD, MRSA PNA, bronchiectasis admitted for new hypoxia and cough. 1. COPD Exacerbation - appears to be secondary to viral exposure around family members - wean oxygen as able with goal O2 88-92% - change in cough from baseline - Duonebs scheduled QID, PRN for SOB breakthrough - solumedrol 40 IV daily - azithromycin 500 x 3 days - continue home inhaler regimen (LAMA + LABA) - possible pneumonia - low suspicion with procal negative x 2, no focal lung abnormalities on exam or chest xr, improved sx with duonebs - d/c vanc, cefepime - blood cultures pending - VBG WNL, lactate 0.9 Elevated Troponin/hx pulmonary HTN - 0.068, followed by negative troponin - low concern for cardiac event without ekg changes, chest pain complaints - pro BNP 1955 - previous echo in 2018 with dx pulmonary HTN, repeat echo pending Elevated BSG - Sliding scale with goal 120 -160, CF 50, CR 25. - possibly secondary to steroids, A1c pending Elevated LFTs - AST 47, ALT 45, Alk Phos 214 - follow up outpatient Asymptomatic bacteriuria - no urinary sx complaints - urinary culture pending, no indication to treat DVT ppx: lovenox FEN/GI: regular Bowel regimen: prn miralax Code Status: full code Dispo: PCU (2) Abnormal LFTs: (3) Psoriasis: (4) Elevated troponin I level: Admission and Anticipated Discharge Date Admission Date: October 29, 2020 Supervising Physician Co-Signing Physician Notes I personally saw and examined the patient. I verified all perkins points and agree with Dr Orozco, resident physician with the following exceptions and/or additions: 65-year-old female history of COPD, progressive shortness of breath of 3 to 4 days. Improving since admission with notable difference with duo nebs. and patient smoke but planning on quitting. O/E poor air entry posteriorly but no wheezing. A/P COPD exacerbation -continue IV steroids, started azithromycin, continue duo nebs. Procalcitonin negative and no pneumonia on chest x-ray or exam therefore will discontinue further cefepime or vancomycin. Nicotine addiction -declines nicotine patch at this time Subjective No ovn events. states that she started feeling ill 3 days ago on sunday, had a nonproductive "barking" cough, and generally felt fatigued. She states her daughter and grandchildren who she was in [place] with had all recently passed sore throat symptoms between themselves. Denies any fevers at home,did have chills, fatigue, cough.some mild nausea on sunday. no peripheral swelling, SOB, CP. Feels considerably better now. Review of Systems Review of Systems: All systems reviewed & are unremarkable except as noted in Subjective Physical Exam Physical Exam: Constitutional: in no apparent distress, sitting up comfortably in bed. Eyes: EOMI, pupils equal and reactive bilaterally, no scleral icterus Cardiac: RRR, no murmurs, gallops or rubs. Normal S1, S2 Pulm: Diffuse end expiratory wheezes and rhonchi throughout all lung buenrostro, no focal diminished air sounds or crackles, breathing comfortably on 5L NC Abd: soft, nontender, nondistended, normal bowel sounds, no rebound or guarding Extremities: 2+ peripheral pulses, no edema Neuro: no focal deficits, moving all 4 limbs, A&Ox3 Results & Data Results & Data ([facility]) Vital Signs (Past 12 Hours) Laboratory Results WBC 9.57 K/uL (4.8-10.8) 10/30/20 07:19 RBC 4.36 M/uL (4.2-5.4) 10/30/20 07:19 Hgb 12.7 g/dL (12.0-16.0) 10/30/20 07:19 Hct 39.4 % (37-47) 10/30/20 07:19 MCV 90.4 fL (80-100) 10/30/20 07:19 MCH 29.1 pg (25-34) 10/30/20 07:19 MCHC 32.2 g/dL (32-36) 10/30/20 07:19 RDW Std Deviation 44.2 fL (36.4-46.3) 10/30/20 07:19 RDW Coeff of Tommy 13.3 % (11.5-14.5) 10/30/20 07:19 Plt Count 255 K/uL (130-400) 10/30/20 07:19 MPV 10.8 fL (7.4-10.4) H 10/30/20 07:19 Immature Gran % (Auto) 0.2 % 10/30/20 07:19 Neut % (Auto) 88.7 % 10/30/20 07:19 Lymph % (Auto) 8.5 % 10/30/20 07:19 Cecil % (Auto) 2.5 % 10/30/20 07:19 Eos % (Auto) 0.0 % 10/30/20 07:19 Baso % (Auto) 0.1 % 10/30/20 07:19 Neut # (Auto) 8.49 K/uL (1.4-6.5) H 10/30/20 07:19 Lymph # (Auto) 0.81 K/uL (1.2-3.4) L 10/30/20 07:19 Cecil # (Auto) 0.24 K/uL (0.11-0.59) 10/30/20 07:19 Eos # (Auto) 0.00 K/uL (0-0.5) 10/30/20 07:19 Baso # (Auto) 0.01 K/uL (0-0.2) 10/30/20 07:19 Immature Gran # (Auto) 0.02 K/uL (0.00-0.02) 10/30/20 07:19 PT 10.7 Seconds (9.0-12.0) 10/29/20 20:17 INR 1.1 (0.9-1.1) 10/29/20 20:17 APTT 26.7 Seconds (21.0-31.0) 10/29/20 20:17 PTT Ratio 1.0 10/29/20 20:17 VBG pH 7.45 (7.36-7.41) H 10/29/20 20:17 VBG pCO2 38 mmHg (38-50) 10/29/20 20:17 VBG pO2 64 mmHg 10/29/20 20:17 VBG HCO3 26 mmol/L 10/29/20 20:17 VBG O2 Saturation 94.1 % 10/29/20 20:17 VBG Base Excess 1.7 mEq/L 10/29/20 20:17 Barometric Pressure 731.1 mm/Hg 10/29/20 20:17 Sodium 135 mmol/L (136-145) L 10/30/20 07:19 Potassium 4.2 mmol/L (3.5-5.1) 10/30/20 07:19 Chloride 104 mmol/L (98-107) 10/30/20 07:19 Carbon Dioxide 26 mmol/L (21-32) 10/30/20 07:19 Anion Gap 5.0 (3-11) 10/30/20 07:19 BUN 13 mg/dl (7-18) 10/30/20 07:19 Creatinine 0.71 mg/dl (0.6-1.2) 10/30/20 07:19 Est Cr Clr Drug Dosing 80.9 ml/min 10/30/20 07:19 Est GFR ( Amer) 103.6 ml/min 10/30/20 07:19 Est GFR (Non-Af Amer) 89.4 ml/min 10/30/20 07:19 BUN/Creatinine Ratio 18.1 (10-20) 10/30/20 07:19 Glucose 260 mg/dl (70-99) H 10/30/20 07:19 Lactate 0.9 mmol/L (0.4-2.0) 10/29/20 20:17 Calcium 10.1 mg/dl (8.5-10.1) 10/30/20 07:19 Magnesium 1.6 mg/dl (1.8-2.4) L 10/29/20 20:17 Total Bilirubin 0.3 mg/dl (0.2-1) 10/30/20 07:19 Direct Bilirubin 0.1 mg/dl (0-0.2) 10/30/20 07:19 AST 30 U/L (15-37) 10/30/20 07:19 ALT 39 U/L (12-78) 10/30/20 07:19 Alkaline Phosphatase 197 U/L (45-117) H 10/30/20 07:19 Troponin I < 0.015 ng/ml (0-0.045) 10/30/20 07:19 NT-Pro-B Natriuret Pep 1956 pg/ml (0-900) H 10/29/20 20:17 Total Protein 7.4 gm/dl (6.4-8.2) 10/30/20 07:19 Albumin 3.0 gm/dl (3.4-5.0) L 10/30/20 07:19 Globulin 4.6 gm/dl (2.5-4.0) H 10/29/20 20:17 Albumin/Globulin Ratio 0.7 (0.9-2) L 10/29/20 20:17 Procalcitonin < 0.05 ng/ml (0-0.5) 10/30/20 07:19 Urine Color Dark Yellow 10/29/20 20:57 Urine Appearance Turbid (Clear) A 10/29/20 20:57 Urine pH 6.0 (4.5-7.5) 10/29/20 20:57 Ur Specific [place] 1.019 (1.000-1.030) 10/29/20 20:57 Urine Protein 1+ (Negative) H 10/29/20 20:57 Urine Glucose (UA) Negative (Negative) 10/29/20 20:57 Urine Ketones Trace (Negative) H 10/29/20 20:57 Urine Blood 1+ (Negative) H 10/29/20 20:57 Urine Nitrite Negative (Negative) 10/29/20 20:57 Urine Bilirubin 1+ (Negative) H 10/29/20 20:57 Urine Urobilinogen Negative (Negative) 10/29/20 20:57 Ur Leukocyte Esterase 3+ (Negative) H 10/29/20 20:57 Urine WBC (Auto) >30 /hpf (0-5) H 10/29/20 20:57 Urine RBC (Auto) 10-30 /hpf (0-4) H 10/29/20 20:57 U Hyaline Cast (Auto) 1-5 /lpf (0-5) 10/29/20 20:57 U Epithel Cells (Auto) >30 /lpf (0-5) H 10/29/20 20:57 Urine Bacteria (Auto) 4+ (Negative) H 10/29/20 20:57 COVID-19 Eval Order Covid19 at [facility] 10/29/20 20:02 SARS-CoV-2 (PCR) NEGATIVE (Negative) 10/29/20 20:02 Impressions Chest X-Ray 10/29/20 19:51 XR chest 1V portable HISTORY: 65 years-old Female SEPSIS acute sepsis COMPARISON: 10/07/2019, chest CT 10/04/2017. TECHNIQUE: Portable AP view of the chest FINDINGS: Cardiac silhouette is enlarged. Mild bibasilar opacities, left greater than right appear unchanged. Degenerative changes of the shoulders and spine. No pneumothorax, pleural effusion or overt pulmonary edema. IMPRESSION: 1. Cardiomegaly without pulmonary edema. 2. Unchanged left greater than right bibasilar atelectasis/fibrosis ACT 112: Negative or not required by law. The above report was generated using voice recognition software. It may contain grammatical, syntax or spelling errors. Electronically signed by: Pepe Funez M.D. 10/29/2020 9:16 PM Vital Signs Temp Pulse Pulse Resp BP BP Pulse Ox 10/30/20 08:27 36.3 C L 78 16 110/68 91 10/30/20 07:26 79 18 95 10/30/20 03:28 36.7 C 87 18 108/66 93 10/30/20 01:10 102 H 10/29/20 23:55 36.7 C 104 H 29 H 146/74 H 90 10/29/20 23:53 36.7 C 104 H 33 H 146/74 H 90 10/29/20 23:25 30 H 92 10/29/20 23:06 37.9 C H 10/29/20 23:00 106 H 29 H 116/82 92 10/29/20 22:00 103 H 32 H 145/90 H 91 10/29/20 21:52 101 H 22 91 10/29/20 21:34 20 91 10/29/20 21:00 104 H 30 H 128/79 95 Resident Activity Tracking Resident Involvement: Resident Care Provided Care Provided: Adult Hospital Medicine
[2020-10-30] MEDS ORDERED: BENZONATATE 100 MG CAPSULE PO SCH (09:00)
[2020-10-30] MEDS ORDERED: ALBUT/IPRATROP 3MG/0.5MG NEB 3 ML VIAL INH SCH (09:00)
[2020-10-30] MEDS: ASPIRIN 81 MG ECTAB PO SCH (09:30)
[2020-10-30] MEDS: ENOXAPARIN INJ 40 MG/0.4 ML SYR SQ SCH (09:30)
[2020-10-30] MEDS: PANTOprazole 40 MG TAB PO SCH (09:31)
[2020-10-30] MEDS: FLUTICASONE/VILANTEROL 100/25MCG 14 PUFFS/INHALER INH SCH (09:31)
[2020-10-30] MEDS: guaiFENesin 600 MG TABCR PO SCH ×2 (09:31→21:44)
[2020-10-30] MEDS: METOPROLOL TARTRATE 25 MG TAB PO SCH ×2 (09:31→21:44)
--- NOTE | 2020-10-30 10:21 | Electrocardiogram Report ---
Test Reason : Blood Pressure : / mmHG Vent. Rate : 100 BPM Atrial Rate : 100 BPM P-R Int : 164 ms QRS Dur : 098 ms QT Int : 316 ms P-R-T Axes : 043 087 068 degrees QTc Int : 407 ms Normal sinus rhythm Poor R wave progression, consider anterior OH vs. lead placement vs. LVH When compared with ECG of 29-SEP-2017 17:54, Nonspecific T wave abnormality now evident in Anterior leads Confirmed by Yadnel Spear ([id number]) on 10/30/2020 10:20:42 AM Referred By: REFERRED SELF Confirmed By:Fredrick Spear
[2020-10-30] MEDS: methylPREDNISolone 40 MG in SYRINGE 0 ML IV SCH ×3 (11:06→21:45)
[2020-10-30] MEDS ORDERED: GLUCAGON FOR INJ 1 MG VIAL SQ PRN (11:43)
[2020-10-30] MEDS ORDERED: GLUCOSE 40% GEL 15 GM TUBE PO PRN (11:43)
[2020-10-30] MEDS ORDERED: GLUCOSE 10 TABS/TUBE PO PRN (11:43)
[2020-10-30] MEDS ORDERED: DEXTROSE 50% 50 ML SYRINGE IV PRN (11:43)
[2020-10-30] MEDS ORDERED: CARBOHYDRATES FOR HYPOGLYCEMIA PO PRN (11:43)
[2020-10-30] MEDS ORDERED: VANCOMYCIN HCL 1,000 MG in SODIUM CHLORIDE 0.9% 250 ML IV SCH (12:00)
--- NOTE | 2020-10-30 12:15 | XCELERA ---
[id number]
[2020-10-30] MEDS: AZITHROMYCIN 500 MG in DEXTROSE 5% 250 ML IV SCH (12:32)
[2020-10-30 12:56] LABS: Estimated Average Glucose 163 mg/dl; Hemoglobin A1C 7.3 % (4.5-5.6)
[2020-10-30] MEDS ORDERED: POLYETHYLENE (MIRALAX) 17 GM PACK PO PRN (13:09)
[2020-10-30] MEDS: INSULIN ASPART 100 UNITS/ML 3 ML PEN SC SCH ×2 (17:21→21:51)
[2020-10-30] MEDS: ALBUT/IPRATROP 3MG/0.5MG NEB 3 ML VIAL INH PRN (19:11)
[2020-10-30] MEDS: BENZONATATE 100 MG CAPSULE PO SCH (21:45)
[2020-10-30] MEDS: clonazePAM 1 MG TAB PO PRN (21:54)
[2020-10-31] MEDS: SODIUM CHLOR 7% 4 ML NEB NEB SCH ×2 (07:07→19:03)
[2020-10-31] MEDS: ALBUT/IPRATROP 3MG/0.5MG NEB 3 ML VIAL INH PRN (07:08)
[2020-10-31] MEDS: ENOXAPARIN INJ 40 MG/0.4 ML SYR SQ SCH (08:23)
[2020-10-31] MEDS: ASPIRIN 81 MG ECTAB PO SCH (08:23)
[2020-10-31] MEDS: FLUTICASONE/VILANTEROL 100/25MCG 14 PUFFS/INHALER INH SCH (08:23)
[2020-10-31] MEDS: guaiFENesin 600 MG TABCR PO SCH ×2 (08:25→22:09)
[2020-10-31] MEDS: methylPREDNISolone 40 MG in SYRINGE 0 ML IV SCH (08:25)
[2020-10-31] MEDS: METOPROLOL TARTRATE 25 MG TAB PO SCH ×2 (08:25→22:09)
[2020-10-31] MEDS: PANTOprazole 40 MG TAB PO SCH (08:25)
[2020-10-31] MEDS: AZITHROMYCIN 500 MG in DEXTROSE 5% 250 ML IV SCH (08:26)
[2020-10-31] MEDS: INSULIN ASPART 100 UNITS/ML 3 ML PEN SC SCH ×4 (08:27→21:34)
--- NOTE | 2020-10-31 08:43 | Hospitalist Progress Note ---
Date of Service October 31, 2020 Assessment & Plan (1) Acute exacerbation of chronic obstructive airways disease: 65 yo F with hx COPD, MRSA PNA, bronchiectasis admitted for new hypoxia and cough. 1. COPD Exacerbation - appears to be secondary to viral exposure around family members - wean oxygen as able with goal O2 88-92% - Duonebs scheduled PRN for SOB breakthrough - solumedrol 40 IV daily, convert to PO pred 11/01 - azithromycin 500 x 3 days - continue home inhaler regimen (LAMA + LABA) - low suspicion for pneumonia - procal negative x 2, no focal lung abnormalities on exam or chest xr, improved sx with duonebs - d/c vanc, cefepime - blood cultures negative at 24 hours - VBG WNL, lactate 0.9 Elevated Troponin/hx pulmonary HTN - 0.068, followed by negative troponin - low concern for cardiac event without ekg changes, chest pain complaints - pro BNP 1955 - previous echo in 2018 with dx pulmonary HTN, repeat echo pending New Onset DM2 - A1c 7.3 - Sliding scale with goal 120 -160, CF 50, CR 25. - sugars likely worse with steroid treatment Elevated LFTs - AST 47, ALT 45, Alk Phos 214 - follow up outpatient Asymptomatic bacteriuria - no urinary sx complaints - urinary culture growing ESBL Ecoli, no indication to treat DVT ppx: lovenox FEN/GI: Dm2 Bowel regimen: prn miralax Code Status: full code Dispo: med/surg (2) Abnormal LFTs: (3) Psoriasis: (4) Elevated troponin I level: Admission and Anticipated Discharge Date Admission Date: October 29, 2020 Supervising Physician Co-Signing Physician Notes I personally saw and examined the patient. I verified all perkins points and agree with resident physician Dr Colleen Orozco with the following exceptions and/or additions: Still significantly off her baseline but much better since admission. Discussed smoking cessation, both with the patient and her partner. Chest , posterior expiratory wheezing improved but still present Would treat with IV steroids for 48 hours. Consider discharge tomorrow if doing well with PT/OT. May need 2 step. Subjective feeling much improved today. discussed at length her smoking habits and ways to help quit so she has less COPD issues. more productive cough, down to 2L nc. said she was able to walk around the room yesterday and put the oxygen back on after without discomfort. feeling much improved today. discussed at length her smoking habits and ways to help quit so she has less COPD issues. more productive cough, down to 2L nc. said she was able to walk around the room yesterday and put the oxygen back on after without discomfort. Review of Systems Constitutional: no fever, no chills and no weakness Respiratory: + cough and + change in sputum; no dyspnea and no pain on inspiration Cardiovascular: no chest pain and no edema Physical Exam Physical Exam: Constitutional: in no apparent distress, sitting up comfortably in bed. Eyes: EOMI, pupils equal and reactive bilaterally, no scleral icterus Cardiac: RRR, no murmurs, gallops or rubs. Normal S1, S2 Pulm: clear breaths sounds in upper and middle lobes bilaterally, persistent rhonchi and crackles in bilateral lower lobes. overall improved function on 2LNC Abd: soft, nontender, nondistended, normal bowel sounds, no rebound or guarding Extremities: 2+ peripheral pulses, no edema Neuro: no focal deficits, moving all 4 limbs, A&Ox3 Results & Data Results & Data ([facility]) Vital Signs (Past 12 Hours) Vital Signs Temp Pulse Pulse Resp BP Pulse Ox 10/31/20 08:14 37.0 C 69 16 117/65 96 10/31/20 07:21 77 10/31/20 07:08 72 18 95 10/31/20 04:47 86 10/31/20 04:39 37 C 78 20 138/83 93 10/30/20 23:54 36.4 C L 68 20 145/81 H 92 10/30/20 23:25 94 Laboratory Results WBC 15.19 K/uL (4.8-10.8) H 10/31/20 08:26 RBC 4.41 M/uL (4.2-5.4) 10/31/20 08:26 Hgb 12.9 g/dL (12.0-16.0) 10/31/20 08:26 Hct 39.4 % (37-47) 10/31/20 08:26 MCV 89.3 fL (80-100) 10/31/20 08:26 MCH 29.3 pg (25-34) 10/31/20 08:26 MCHC 32.7 g/dL (32-36) 10/31/20 08:26 RDW Std Deviation 42.8 fL (36.4-46.3) 10/31/20 08: RDW Coeff of Tommy 13.1 % (11.5-14.5) 10/31/20 08:26 Plt Count 256 K/uL (130-400) 10/31/20 08:26 MPV 11.1 fL (7.4-10.4) H 10/31/20 08:26 Immature Gran % (Auto) 0.3 % 10/31/20 08:26 Neut % (Auto) 85.9 % 10/31/20 08:26 Lymph % (Auto) 8.1 % 10/31/20 08:26 [place] % (Auto) 5.7 % 10/31/20 08: Eos % (Auto) 0.0 % 10/31/20 08: Baso % (Auto) 0.0 % 10/31/20 08:26 Neut # (Auto) 13.05 K/uL (1.4-6.5) H 10/31/20 08:26 Lymph # (Auto) 1.23 K/uL (1.2-3.4) 10/31/20 08:26 [place] # (Auto) 0.86 K/uL (0.11-0.59) H 10/31/20 08:26 Eos # (Auto) 0.00 K/uL (0-0.5) 10/31/20 08:26 Baso # (Auto) 0.00 K/uL (0-0.2) 10/31/20 08:26 Immature Gran # (Auto) 0.05 K/uL (0.00-0.02) H 10/31/20 08:26 PT 10.7 Seconds (9.0-12.0) 10/29/20 20: INR 1.1 (0.9-1.1) 10/29/20 20: APTT 26.7 Seconds (21.0-31.0) 10/29/20 20: PTT Ratio 1.0 10/29/20 20: VBG pH 7.45 (7.36-7.41) H 10/29/20 20:17 VBG pCO2 38 mmHg (38-50) 10/29/20 20: VBG pO2 64 mmHg 10/29/20 20:17 VBG HCO3 26 mmol/L 10/29/20 20:17 VBG O2 Saturation 94.1 % 10/29/20 20:17 VBG Base Excess 1.7 mEq/L 10/29/20 20:17 Barometric Pressure 731.1 mm/Hg 10/29/20 20:17 Sodium 135 mmol/L (136-145) L 10/30/20 07:19 Potassium 4.2 mmol/L (3.5-5.1) 10/30/20 07:19 Chloride 104 mmol/L (98-107) 10/30/20 07:19 Carbon Dioxide 26 mmol/L (21-32) 10/30/20 07:19 Anion Gap 5.0 (3-11) 10/30/20 07:19 BUN 13 mg/dl (7-18) 10/30/20 07:19 Creatinine 0.72 mg/dl (0.6-1.2) 10/31/20 08:26 Est Cr Clr Drug Dosing 79.4 ml/min 10/31/20 08:26 Est GFR ( Amer) 101.9 ml/min 10/31/20 08:26 Est GFR (Non-Af Amer) 87.9 ml/min 10/31/20 08:26 BUN/Creatinine Ratio 18.1 (10-20) 10/30/20 07:19 Glucose 260 mg/dl (70-99) H 10/30/20 07:19 POC Glucose 273 mg/dl (70-99) H 10/31/20 11:32 Estimat Average Glucose 163 mg/dl 10/30/20 07:19 Hemoglobin A1c 7.3 % (4.5-5.6) H 10/30/20 07:19 Lactate 0.9 mmol/L (0.4-2.0) 10/29/20 20:17 Calcium 10.1 mg/dl (8.5-10.1) 10/30/20 07:19 Magnesium 1.6 mg/dl (1.8-2.4) L 10/29/20 20:17 Total Bilirubin 0.3 mg/dl (0.2-1) 10/30/20 07:19 Direct Bilirubin 0.1 mg/dl (0-0.2) 10/30/20 07:19 AST 30 U/L (15-37) 10/30/20 07:19 ALT 39 U/L (12-78) 10/30/20 07:19 Alkaline Phosphatase 197 U/L (45-117) H 10/30/20 07:19 Troponin I < 0.015 ng/ml (0-0.045) 10/30/20 12:45 NT-Pro-B Natriuret Pep 1956 pg/ml (0-900) H 10/29/20 20:17 Total Protein 7.4 gm/dl (6.4-8.2) 10/30/20 07:19 Albumin 3.0 gm/dl (3.4-5.0) L 10/30/20 07:19 Globulin 4.6 gm/dl (2.5-4.0) H 10/29/20 20:17 Albumin/Globulin Ratio 0.7 (0.9-2) L 10/29/20 20:17 Procalcitonin < 0.05 ng/ml (0-0.5) 10/30/20 07:19 Urine Color Dark Yellow 10/29/20 20:57 Urine Appearance Turbid (Clear) A 10/29/20 20:57 Urine pH 6.0 (4.5-7.5) 10/29/20 20:57 Ur Specific Opal 1.019 (1.000-1.030) 10/29/20 20:57 Urine Protein 1+ (Negative) H 10/29/20 20:57 Urine Glucose (UA) Negative (Negative) 10/29/20 20:57 Urine Ketones Trace (Negative) H 10/29/20 20:57 Urine Blood 1+ (Negative) H 10/29/20 20:57 Urine Nitrite Negative (Negative) 10/29/20 20:57 Urine Bilirubin 1+ (Negative) H 10/29/20 20:57 Urine Urobilinogen Negative (Negative) 10/29/20 20:57 Ur Leukocyte Esterase 3+ (Negative) H 10/29/20 20:57 Urine WBC (Auto) >30 /hpf (0-5) H 10/29/20 20:57 Urine RBC (Auto) 10-30 /hpf (0-4) H 10/29/20 20:57 U Hyaline Cast (Auto) 1-5 /lpf (0-5) 10/29/20 20:57 U Epithel Cells (Auto) >30 /lpf (0-5) H 10/29/20 20:57 Urine Bacteria (Auto) 4+ (Negative) H 10/29/20 20:57 COVID-19 Eval Order Covid19 at [facility] 10/29/20 20:02 SARS-CoV-2 (PCR) NEGATIVE (Negative) 10/29/20 20:02 Impressions Chest X-Ray 10/29/20 19:51 XR chest 1V portable HISTORY: 65 years-old Female SEPSIS acute sepsis COMPARISON: 10/07/2019, chest CT 10/04/2017. TECHNIQUE: Portable AP view of the chest FINDINGS: Cardiac silhouette is enlarged. Mild bibasilar opacities, left greater than right appear unchanged. Degenerative changes of the shoulders and spine. No pneumothorax, pleural effusion or overt pulmonary edema. IMPRESSION: 1. Cardiomegaly without pulmonary edema. 2. Unchanged left greater than right bibasilar atelectasis/fibrosis ACT 112: Negative or not required by law. The above report was generated using voice recognition software. It may contain grammatical, syntax or spelling errors. Electronically signed by: Pepe Funez M.D. 10/29/2020 9:16 PM Resident Activity Tracking Resident Involvement: Resident Care Provided Care Provided: Adult Hospital Medicine
[2020-10-31 08:59] LABS: Hematocrit (blood only) 39.4 % (37-47); Hemoglobin 12.9 g/dL (12.0-16.0); Immature Granulocytes # (auto) 0.05 K/uL (0.00-0.02); Immature Granulocytes % (auto) 0.3 %; Lymphocytes # (auto) 1.23 K/uL (1.2-3.4); Lymphocytes % (auto) 8.1 %; Mean Corpuscular Hemoglobin 29.3 pg (25-34); Mean Corpuscular Hgb Conc 32.7 g/dL (32-36); Mean Corpuscular Volume 89.3 fL (80-100); Mean Platelet Volume 11.1 fL (7.4-10.4); Monocytes # (auto) 0.86 K/uL (0.11-0.59); Monocytes % (auto) 5.7 %; Neutrophils # (auto) 13.05 K/uL (1.4-6.5); Neutrophils % (auto) 85.9 %; Platelet Count 256 K/uL (130-400); RDW Coefficient of Variation 13.1 % (11.5-14.5); RDW Standard Deviation 42.8 fL (36.4-46.3); Red Blood Count 4.41 M/uL (4.2-5.4); White Blood Count 15.19 K/uL (4.8-10.8)
[2020-10-31 09:14] LABS: Creatinine Clr Calc Pharmacy 79.4 ml/min; Est GFR (African American) 101.9 ml/min; Est GFR (Non-African American) 87.9 ml/min
[2020-10-31] MEDS ORDERED: VANCOMYCIN TROUGH ONE (11:30)
--- NOTE | 2020-10-31 13:46 | Billing Data ---
Date of Service October 30, 2020 Coding Level of Care Code 80657 Subseq Hosp Care Lvl 2
[2020-10-31] MEDS ORDERED: NICOTINE 14 MG/24 HR PATCH TD SCH (21:00)
[2020-10-31] MEDS: clonazePAM 1 MG TAB PO PRN (21:34)
[2020-10-31] MEDS: BENZONATATE 100 MG CAPSULE PO SCH (21:35)
[2020-11-01 06:19] LABS: Basophils # (auto) 0.01 K/uL (0-0.2); Basophils % (auto) 0.1 %; Eosinophils # (auto) 0.02 K/uL (0-0.5); Eosinophils % (auto) 0.2 %; Hematocrit (blood only) 40.6 % (37-47); Hemoglobin 12.9 g/dL (12.0-16.0); Immature Granulocytes # (auto) 0.07 K/uL (0.00-0.02); Immature Granulocytes % (auto) 0.5 %; Lymphocytes # (auto) 1.84 K/uL (1.2-3.4); Lymphocytes % (auto) 14.4 %; Mean Corpuscular Hemoglobin 29.2 pg (25-34); Mean Corpuscular Hgb Conc 31.8 g/dL (32-36); Mean Corpuscular Volume 91.9 fL (80-100); Mean Platelet Volume 10.8 fL (7.4-10.4); Monocytes # (auto) 1.09 K/uL (0.11-0.59); Monocytes % (auto) 8.5 %; Neutrophils # (auto) 9.72 K/uL (1.4-6.5); Neutrophils % (auto) 76.3 %; Platelet Count 266 K/uL (130-400); RDW Coefficient of Variation 13.2 % (11.5-14.5); RDW Standard Deviation 44.7 fL (36.4-46.3); Red Blood Count 4.42 M/uL (4.2-5.4); White Blood Count 12.75 K/uL (4.8-10.8)
[2020-11-01] MEDS: SODIUM CHLOR 7% 4 ML NEB NEB SCH (07:22)
[2020-11-01] MEDS ORDERED: predniSONE 20 MG TAB PO SCH (08:00)
[2020-11-01] MEDS: guaiFENesin 600 MG TABCR PO SCH (08:07)
[2020-11-01] MEDS: METOPROLOL TARTRATE 25 MG TAB PO SCH (08:07)
[2020-11-01] MEDS: FLUTICASONE/VILANTEROL 100/25MCG 14 PUFFS/INHALER INH SCH (08:10)
[2020-11-01] MEDS: ENOXAPARIN INJ 40 MG/0.4 ML SYR SQ SCH (08:11)
[2020-11-01] MEDS: PANTOprazole 40 MG TAB PO SCH (08:11)
[2020-11-01] MEDS: ASPIRIN 81 MG ECTAB PO SCH (08:12)
--- NOTE | 2020-11-01 08:58 | Med Student Discharge Summary ---
Date of Service November 01, 2020 Admission HPI Per Admitting Provider Izabela Simms is a 65yo female with history of COPD, Bronchiectasis and prior MRSA infection presenting with 3-4 days of progressive SOB. Patient [place] the [place] and states that several family members were getting over URIs/illnesses. She reports developing a stuffy nose and headache 4-5 days ago then cough, fever/chills and SOB as well as nausea, diarrhea and fatigue. Symptoms progressive. She was extremely short of breath today. She denies cough, wheeze or sputum production. Denies chest pain or palpitations. No dysuria, abdominal pain Patient follows with Pulmonary for her history of bronchiectasis - last seen 09/2019 Patient with elevated temperature on arrival to ER at 37.7, tachycardic, tachypneic and hypoxic to 85% on room air. SHe was placed on NC with improve ment ER Course: Albuterol, Dexamethasone 10mg IV, Magnesium 1gm Admission Exam (Per Admitting) Constitutional General: NAD, ill in appearance but non-toxic in appearance, AA&O x 4 Skin: warm, dry, intact, no rashes or lesions HEENT: NC/AT, PERRL, EOMI, anicteric sclera, conjunctiva without injection, external ear normal to inspection and nontender, nares patent, moist mucus membranes, dentition intact, no oropharyngeal lesions, neck supple, trachea midline, no LAD, no thyromegaly, no JVD Heart: +S1/S2, regular, tachycardic, no m/r/g Lungs: slightly tachypneic, equal air entry bilaterally, coarse breath sounds with diffuse rhonchi, scattered end-expiratory wheezing Abd: +BS, soft, NT/ND, no masses/organomegaly/ascites Ext: warm, 2+ pulses in UE/LE bilaterally, no clubbing/cyanosis or edema, firm nodule in left axilla, slightly tender Neuro: nonfocal, patient AA&O x 4, speech intact, no facial droop, moving all extremities on command with equal strength 08/25 Discharge Data Consultations 10/29/20 21:51 ED Decision to Admit Stat Diabetes Follow Up Diabetes Follow Up: Diabetes Follow-up Needed for Newly Diagnosed Diabetes Hospital Course (1) Acute exacerbation of chronic obstructive airways disease: COPD exacerbation Due to concern for pneumonia, patient was initially treated with empiric IV antibiotics in addition to IV steroids, nebs, supplemental oxygen, and patient's home inhaler regimen. Patient demonstrated clinical improvement. On hospital day two, symptoms were felt to be secondary to COPD exacerbation rather than pneumonia due to a lack of focal abnormalities on CXR or pulmonary exam, continued negative blood cultures, as well as a normal VBG and lactate. Patient was then started on a three-day course of azithromycin. On hospital day three, IV steroids were converted to PO. Patient's clinical improvement continued, and patient was discharged on hospital day four in stable condition with three days of oral methylprednisolone to finish a steroid burst. Patient was hemodynamically stable for the entirety of her hospitalization. PCP follow-up was recommended. Pulmonary hypertension, diastolic heart failure Echo (10/30/2020) showed elevated RV pressure (40-50mmHg) in addition to grade 1 diastolic dysfunction, normal LV function, and a mildly dilated IVC. This represented an improvement from prior echo (09/2017). No new medications were started. PCP follow-up was recommended, as was establishing care with a sander operator. New-onset DM2 Patient was noted with an A1c of 7.3% on routine labwork. This diagnosis was explained to patient, and patient was educated on dietary modification, physical exercise, and the role of medication in the management of DM2. No new med ications were started. PCP follow-up was recommended. Nicotine dependence Patient's history of tobacco use was noted on admission. Upon discussion with patient, she endorsed readiness to quit smoking. Nicotine withdrawal was managed in the hospital with a nicotine patch. Patient was counseled on the role of tobacco cessation resources including nicotine patches, gum, and medication. Patient endorsed strong motivation to quit, and voiced intention to follow up with her PCP for further support. Elevated troponin Patient was noted with a troponin of 0.068 on admission without chest pain or ischemic change on EKG. Repeat troponin was negative. Patient's elevated troponin on admission was felt likely to be secondary to demand ischemia rather than ACS, and no further treatment or workup was indicated. Elevated transaminases Patient was noted with an AST of 47, ALT of 45, and alkaline phosphatase of 214 on routine labwork. Patient's elevated transaminases were not felt to be related to presenting symptoms, and no further workup or treatment was felt indicated. PCP follow-up was recommended. Asymptomatic bacteriuria Patient was noted with a urine culture growing ESBL E. coli. Treatment was not indicated, as patient was without urinary symptoms. (2) Abnormal LFTs: (3) Psoriasis: (4) Elevated troponin I level: Discharge Plan Discharge Items Patient Disposition: Home - Self-Care Reason For Visit: SOB Discharge Diagnosis: COPD exacerbation Condition on Discharge: Good Activity: Resume your previous activity Non-emergency contact: Primary Care Provider Call non-emergency contact if: you have any medication questions and your symptoms worsen Follow-up/Referrals: Marta Greenwood D.O. [Primary Care Provider] - 11/09/20 10:30 am Diet: Regular Addtl Attending Provider Instructions: You were admitted to the hospital for COPD exacerbation. You were treated with steroids and nebulizer therapy. You will need to continue oral steroids at home. You were also found to have newly diagnosed diabetes. A discharge summary will be sent to your primary care physician to ensure continuity of care. Please bring this discharge summary with you to your next office appointment so that your provider can review it at that time. Follow-up appointments: Make a follow-up appointment with your PCP within the next week. It is very important that you follow up with them shortly after discharge from the hospital. Your repeat echocardiogram looked good, but we still highly recommend you establish care with a sander operator. Your PCP can help refer you to a cardiology practice. Keep all your follow-up appointments as already scheduled. If you cannot make an appointment, notify your provider. Medications: Your medication list has been reviewed and reconciled upon discharge to ensure accuracy and continuity of care. An updated list of all your medications is included with your hospital discharge paperwork. Please review this list closely, and make note of any changes. * We sent a new medication called methylprednisolone to your pharmacy. Take methylprednisolone (8mg) four tablets once daily for three days (11/02 - 11/04). Take your medications as instructed; do not skip a dose of your medicines. Make sure all of your doctors know every medicine you are taking (including orxn-wcs-kzdiroo medicines, vitamins, and supplements). Call your primary care provider before taking any new medicines (including quid-ubd-qleocxj medicines, vitamins, and supplements), because some of these may interact with your current medications, or may make your symptoms worse. Tell your primary care provider if you cannot afford your medications. CONTACT YOUR PRIMARY CARE PROVIDER if you experience any of the following: Worsening shortness of breath Fever, chills, sweats Increased oxygen requirement, or feeling like your home oxygen is not quite enough Difficulty following your treatment plan, or difficulty taking medications CALL 911 OR GO TO THE EMERGENCY DEPARTMENT if you experience any of the following: Sudden, severe abdominal pain or nausea/vomiting Severe chest pain, or chest pain that radiates (moves) to your jaw or arm Sudden, severe shortness of breath or difficulty breathing Thank you for allowing us to participate in your care. Pending Studies at Discharge: No Stand-Alone Forms: My [facility], Smoking Cessation Medications and DC Order Prescriptions: New methylprednisolone 8 mg tablet 32 mg PO DAILY 3 Days Qty: 12 RF: 0 Continued aspirin [Adult Low Dose Aspirin] 81 mg tablet,delayed release (DR/EC) 81 mg PO DAILY RF: 0 metoprolol tartrate 25 mg tablet 25 mg PO BID RF: 0 pantoprazole [Protonix] 40 mg tablet,delayed release (DR/EC) 40 mg PO DAILY RF: 0 multivitamin capsule 1 cap PO DAILY RF: 0 albuterol sulfate 90 mcg/actuation HFA aerosol inhaler 2 inh INH QID Qty: 18 RF: 2 Spiriva Respimat 1.25 mcg/actuation mist 2 inh inhalation DAILY Qty: 4 RF: 5 acetaminophen 325 mg tablet 325 mg PO Q4H PRN (Reason: Pain) RF: 0 Symbicort 160-4.5 mcg/actuation HFA aerosol inhaler 2 puffs INH BID Qty: 10.2 RF: 7 clonazepam 1 mg tablet 1 mg PO BID PRN (Reason: Anxiety) RF: 0 ipratropium-albuterol 0.5 mg-3 mg(2.5 mg base)/3 mL solution for nebulization 3 ml INH QID PRN (Reason: Shortness Of Breath Or Wheezing) RF: 0 Otezla 30 mg tablet 30 mg PO BID RF: 0 Discharge Orders: Discharge Order (Routine); Ordered 11/01/20 Ordered By: Jd Meyer/Other Patient Handouts: Managing Type 2 Diabetes, Exercise to Manage Your Blood Sugar, 5 Steps for Eating Healthier, Type 2 Diabetes Admission Data Admit Date/Time: 10/29/20 22:37 Attending Provider: Marlon Diaz Admit Provider: Thais eMng Primary Care Provider: Marta Greenwood Other Providers: Thais Meng Other Interventions: Discharge Summary Assessment (RN) Last Done: 11/01/20 14:56 Supervising Attestation Attending attestation Pt seen and examined in concert with [facility]. Dr. Ena Alanis. In agreement with the documented findings as noted in the resident documentation with any exceptions or additions as noted here. Resting comfortably in bed off O2 feeling at baseline with mild intermittent nonproductive cough. On examination, S1/S2 nl RRR no MCG. Scattered wheeze throughout with good air movement overall. Abd NT/ND BS+ve Acute on chronic respiratory failure in the setting of COPD with exacerbation - complete course of steroid burst, azithromycin (today) and continue home inhalers with q4h PRN albuterol. Tobacco use - extensive discussion re: cessation - did well on 14mg patch with REESE, likely 7mg patch (sent home with same). Consider use of wellbutrin in the setting of MDD and desire for smoking cessation support at f/u. DMII, newly diagnosed - A1c of 7.3% - after discussion, will forgo starting medication to outpatient provider - encourage lifestyle modification Else see student/resident documentation as noted. Discharge Exam GENERAL: nad HEENT: conjunctiva without injection b/l, external nose and pinna are normal CHEST: diffuse wheezes and crackles appreciated bl, normal respiratory effort CARDIOVASCULAR: heart regular rate and rhythm, no murmurs, gallops or rubs ABD: nontender to palpation, nondistended, normal active bowel sounds SKIN: no rashes or suspicious lesions noted NEURO: SANTINO Resident Activity Tracking Resident Involvement: Resident Care Provided Care Provided: Adult Hospital Medicine
[2020-11-01] MEDS ORDERED: AZITHROMYCIN 250 MG TAB PO SCH (09:00)
[2020-11-01] MEDS ORDERED: methylPREDNISolone 40 MG in SYRINGE 0 ML IV SCH (09:00)
[2020-11-01] MEDS: INSULIN ASPART 100 UNITS/ML 3 ML PEN SC SCH ×2 (10:01→12:44)
--- NOTE | 2020-11-01 13:39 | Pharmacy Report ---
Pharmacy Vanc AUC Short Note - Date of Service October 30, 2020 - Assessment & Plan Assessment 65 year old F started on Vancomycin and Cefepime for pulmonary infection. * PMHx significant for tobacco abuse and COPD. * Presents to ED with difficulty breathing over the last 3 days. * Low grade fever of 37.9oC. Mild leukocytosis at 11k. Procalcitonin less than 0.05. Renal fxn stable. * Cultures pending. Cefepime not a pharmacy consult. Plan Vancomycin * AUC/HARLEEN is the preferred PK/PD target for vancomycin * AUC guided dosing is effective and associated with decreased risk of nephrotoxicity compared to traditional trough targets * Loading Dose: 2000 mg (23 mg/kg) IV x 1 * Maintenance Dose: 1000 mg (12 mg/kg) IV every 12 hours * Maintenance dose is predicted to achieve a steady-state trough of 17.7 mcg/mL and steady-state AUC24/HARLEEN of 538 mg/L.hr * This regimen may be associated with a 14% risk of nephrotoxicity * Trough level ordered for: 10/31/20 prior to the 1200 dose Cefepime - not a pharmacy consult * 2000 mg IV every 8 hours * Appropriate per indication and renal fxn Pharmacy will continue to follow and will adjust dose/frequency as necessary. Thank you.
--- NOTE | 2020-11-12 10:48 | Coding Query ---
PRESENT ON ADMISSION QUERY To promote full compliance with coding requirements relating to pateint care, physician participation is requested in all cases of frit mixer and burner uncertainty. Please assist us with the question(s) below: Please place an X within the parenthesis (x). The following diagnosis(es) listed in this patient's medical record require physician assistance to determine if they were present on admission (POA) or not. Please advise for each diagnosis whether it was present on admission, not present on admission, or if it was clinically undetermined. 1. ACUTE ON CHRONIC RESPIRATORY FAILURE (documented on Discharge Summary) (x) Present On Admission ( ) Not Present On Admission ( ) Clinically Undetermined Thank you Allison Owusu *Definition of the present on admission (POA)-Present on admission is defined as present at the time the order for inpatient admission occurs. Conditions that develop during an outpatient encounter prior to a written order for inpatient admission (including emergency department, observation, or outpatient surgery) are considered present on admission. MTDD
--- NOTE | 2020-11-16 13:55 | Billing Data ---
Date of Service October 31, 2020 Coding Level of Care Code 02455 Subseq Hosp Care Lvl 2
== END 2020-11-01 16:52 | disposition home or self-care (01) | DRG 190 ==
LOC: ED 19:38 → SUATTDRO 22:37 → 2S 22:37 → 3W 10-31 11:54

== ENCOUNTER 2021-03-08 13:28 | Inpatient (IN) ==
--- NOTE | 2021-03-08 14:26 | XRay Report ---
TWO VIEW CHEST CLINICAL HISTORY: Cough and dyspnea. Pneumonia. FINDINGS: PA and lateral chest radiographs are compared to study dated 10/29/2020 and correlated with c hest CT dated 10/04/2017. The heart is enlarged noting atherosclerotic calcification of the thoracic a caty. The pulmonary vasculature is noncongested. There is bibasilar airspace consolidation, right gre ater than left. The upper lobes appear clear. There is no pleural effusion or pneumothorax. The skele mike structures are osteopenic. Compression deformities and degenerative change are noted in the thora cic spine. IMPRESSION: 1. Right greater than left bibasilar airspace consolidation. This is typical for pneumonia/aspiration pneumonitis. Radiographic follow-up to resolution is recommended. 2. Cardiomegaly without radiographic evidence of congestive failure. ACT 112: Negative or not required by law. Electronically signed by: Rosendo Murguia M.D. 03/08/2021 2:24 PM
--- NOTE | 2021-03-08 14:41 | Emergency Department Note ---
Impression & Plan Right lower lobe pneumonia, Recurrent bronchiectasis, Tobacco use, Abnormal LFTs, COPD (chronic obstructive pulmonary disease), History of pulmonary aspergillosis, Acute UTI ED Provider Note NAME: ANGELA SCHAEFER AGE: 65 SEX: F : 1955 ARRIVES VIA: Walk-In INFORMANT: Patient, ED PROVIDER(S): Jd Marshall MD Chief Complaint: Referral, abnormal blood work, possible UTI and pneumonia HPI: Patient does present at the behest of her outpatient primary care physician due to concern for abnormal chest x-ray with pneumonia elevated liver function testing as well as UTI. The patient states that she has been having some intermittent shortness of breath and cough and she has been treated for Aspergillus of the lung ongoing since November and does follow with pulmonology at [facility]. The patient states that she had presented to [facility] emergency department yesterday but the weights were too long and the patient left. The patient was told to return to the emergency department today and this presented here. The patient was also told that she had elevations in her liver function testing and had E. coli UTI. I did review the patient's blood work as an outpatient which showed a negative Covid test. The patient had likely pneumonia. The patient did have 100,000 CFU's of E. coli. Patient states that she is a smoker but last smoked about a week ago. The patient is vaccinated for COVID-19. The patient has not received her seasonal flu shot. Patient has any lower extremity swelling history of DVT or PE. Patient denies any chest pains. Patient has no abdominal pain nausea or vomiting. ROS: See HPI for pertinent positives and negatives. A total of 10 systems were reviewed and otherwise negative. Past medical history: See below Surgical history: See below Social history: See below Physical Exam: GENERAL: NAD, wearing glasses, non-toxic. EYE EXAM: Normal conjunctiva. PERRL, no anisocoria and EOM's grossly intact w/o pain. OROPHARYNX: Moist mucus membranes. Grossly normal dentition. NECK: Supple, no nuchal rigidity, no adenopathy, non-tender. No signs of meningismus. LUNGS: Wheezing throughout with decreased breath sounds right base. Normal chest wall mechanics. HEART: NSR, no MRG. ABDOMEN: Abdomen soft, non-tender, normo-active bowel sounds, no masses, no rebound or guarding. BACK: No CVA TTP. SKIN: No rashes and no bruising. UPPER EXTREMITIES: Upper extremities are grossly normal. LOWER EXTREMITIES: Grossly normal, no edema. Negative Homans' sign bilaterally. NEURO EXAM: A&O x3, cranial nerves II-XII grossly intact, normal speech, moves all 4 extremities on command w/o issue. Differential diagnoses: Reactive airway disease, pneumonia, pneumothorax, COPD, CHF, infections, cardiac ischemia, pulmonary embolism, musculoskeletal, gastrointestinal, as well as other pathologies. Course: Patient was seen and evaluated the bedside. Full history physical exam was performed. EKG interpreted by me Normal sinus rhythm, rate of 86, normal intervals, normal axis, no ST changes. Imaging Studies: See Below Cardiac monitoring: An order was placed for continuous cardiac monitoring. The monitor shows a rate of 75 with sinus rhythm. MDM: Patient was seen due to concern for abnormal outpatient blood work and imaging. Patient has a white count of 12 with a hemoglobin 11.4. Platelet count does show thrombocytosis of 495. Patient's kidney function is unremarkable. Patient's chest x-ray did show concern for possible right lower lobe pneumonia. CT of the chest was obtained which showed right middle lobe collapse and does show consolidation of the right lower lobe. I did speak with pharmacy as well as pulmonology Dr. Choudhury who are in agreement with amphotericin given the normal current kidney function and elevated alk phos. We will need to continue to monitor kidney function while on Terocin. Patient was also treated with ertapenem for a prior history of ESBL E. coli. I did speak with the on-call hospitalist Dr. Guthrie and the patient was admitted to the medicine service Past Med/Surg History Medical History Acute UTI (urinary tract infection) Bronchiectasis COPD (chronic obstructive pulmonary disease) History of pneumonia Hx of multiple pulmonary nodules Hypoxia MRSA (methicillin resistant Staphylococcus aureus) septicemia Psoriasis Recurrent bronchiectasis (11/01/11) Tobacco use Surgical History No significant past surgical history Social History Smoking Status: Current every day smoker Tobacco Type: Cigarettes Second Hand Exposure: No; Hx Alcohol Use: No Hx Substance Use: No Preferred Language: Lao Communication Ability: Effective Beliefs That Will Affect Care: None Current Living Situation: Spouse Feels Safe at Home: Yes Assistive Devices: Glasses and Oxygen - Continuous Allergies Allergies Allergy/AdvReac Type Severity Reaction Status Date / Time cephalexin Allergy Severe Unknown Verified 03/08/21 15:23 Iodinated Contrast Media Allergy Severe HIVES Verified 03/08/21 15:23 loracarbef Allergy Intermediate "THINK IT Verified 03/08/21 15:23 WAS A RASH" coffee (Coffea arabica) Allergy Unknown POSITIVE Verified 03/08/21 15:23 ALLERGY TEST mustard AdvReac Unknown POSITIVE Verified 03/08/21 15:23 ALLERGY TEST Home Meds Home Medications Medication Instructions Recorded Confirmed aspirin 81 mg tablet,delayed 81 mg PO DAILY 02/20/19 03/08/21 release (Adult Low Dose Aspirin) metoprolol tartrate 25 mg tablet 25 mg PO BID 02/20/19 03/08/21 pantoprazole 40 mg tablet,delayed 40 mg PO DAILY 02/20/19 03/08/21 release (Protonix) acetaminophen 325 mg tablet 650 mg PO Q4H PRN tab 10/03/19 03/08/21 clonazepam 1 mg tablet 1 mg PO BID PRN 10/29/20 03/08/21 ipratropium 0.5 mg-albuterol 3 mg 3 ml INH QID PRN 10/29/20 03/08/21 (2.5 mg base)/3 mL nebulization soln albuterol sulfate 90 mcg/actuation 2 inh INH QID PRN 03/08/21 03/08/21 aerosol inhaler amoxicillin 875 mg-potassium 1 tab PO BID 03/08/21 03/08/21 clavulanate 125 mg tablet voriconazole 200 mg tablet 200 mg PO BID 03/08/21 03/08/21 Previous Rx's Medication Instructions Recorded budesonide-formoterol HFA 160 2 puffs INH BID #10.2 gm 04/14/19 mcg-4.5 mcg/actuation aerosol inhaler (Symbicort) tiotropium bromide 1.25 2 inh INHALATION DAILY #4 g 02/16/20 mcg/actuation mist for inhalation (Spiriva Respimat) Results & Data (ED) Vital Signs Vital Signs - 24 hr 03/08/21 13:33 03/08/21 16:53 Temperature 36.5 C Temperature Source Temporal Artery Scan Pulse Rate 86 Pulse Rate [Apical] 77 Respiratory Rate 18 18 Respiratory Effort / Characteristics Non-Labored Spontaneous Respiratory Depth Normal Blood Pressure 144/90 H Blood Pressure Mean 108 Pulse Oximetry 94 99 Oxygen Delivery Method Room Air Room Air Sepsis Recent Fever Within 48 Hours No Sepsis New/Unexplained Change in Mental Status N/A Sepsis Action Taken by Nursing No Action Required Home Medications Current Medication List: was personally reviewed by me Laboratory Data Attestation: I reviewed the patient's lab results. Result diagrams: 03/08/21 15:24 03/08/21 15:24 Lab Results 03/08/21 03/08/21 Range/Units 15:24 15:24 WBC 12.15 H (4.8-10.8) K/uL RBC 4.06 L (4.2-5.4) M/uL Hgb 11.4 L (12.0-16.0) g/dL Hct 37.6 (37-47) % MCV 92.6 (80-100) fL MCH 28.1 (25-34) pg MCHC 30.3 L (32-36) g/dL RDW Std Deviation 52.9 H (36.4-46.3) fL RDW Coeff of Tommy 15.5 H (11.5-14.5) % Plt Count 495 H (130-400) K/uL MPV 10.4 (7.4-10.4) fL Immature Gran % (Auto) 1.2 % Neut % (Auto) 52.6 % Lymph % (Auto) 21.0 % [place] % (Auto) 7.1 % Eos % (Auto) 17.4 % Baso % (Auto) 0.7 % Neut # (Auto) 6.40 (1.4-6.5) K/uL Lymph # (Auto) 2.55 (1.2-3.4) K/uL [place] # (Auto) 0.86 H (0.11-0.59) K/uL Eos # (Auto) 2.12 H (0-0.5) K/uL Baso # (Auto) 0.08 (0-0.2) K/uL Immature Gran # (Auto) 0.14 H (0.00-0.02) K/uL Sodium 138 (136-145) mmol/L Potassium 3.8 (3.5-5.1) mmol/L Chloride 105 (98-107) mmol/L Carbon Dioxide 25 (21-32) mmol/L Anion Gap 7.0 (3-11) BUN 9 (7-18) mg/dl Creatinine 0.63 (0.6-1.2) mg/dl Est Cr Clr Drug Dosing 90.7 ml/min Est GFR ( Amer) 109.1 ml/min Est GFR (Non-Af Amer) 94.1 ml/min BUN/Creatinine Ratio 14.7 (10-20) Glucose 209 H (70-99) mg/dl Calcium 10.0 (8.5-10.1) mg/dl Total Bilirubin 0.4 (0.2-1) mg/dl AST 136 H (15-37) U/L ALT 54 (12-78) U/L Alkaline Phosphatase 986 H (45-117) U/L Total Protein 7.2 (6.4-8.2) gm/dl Albumin 2.2 L (3.4-5.0) gm/dl Globulin 5.0 H (2.5-4.0) gm/dl Albumin/Globulin Ratio 0.4 L (0.9-2) Specimen Hemolysis Administered Medications Discontinued Medications Albuterol (Albut/Ipratrop 3mg/0.5mg Neb 3 Ml Vial) 6 ml NEB NOW STA Stop: 03/08/21 16:45 Last Admin: 03/08/21 16:51 Dose: 6 ml Documented by: [id number] Ertapenem 1,000 mg/ Sodium (Chloride) 60 mls @ 100 mls/hr IV NOW ONE Stop: 03/08/21 16:50 Last Admin: 03/08/21 16:32 Dose: 100 mls/hr Documented by: [id number] Imaging Data Radiologist's Impression: Chest X-Ray 03/08/21 13:37 TWO VIEW CHEST CLINICAL HISTORY: Cough and dyspnea. Pneumonia. FINDINGS: PA and lateral chest radiographs are compared to study dated 10/29/2020 and correlated with chest CT dated 10/04/2017. The heart is enlarged noting atherosclerotic calcification of the thoracic aorta. The pulmonary vasculature is noncongested. There is bibasilar airspace consolidation, right greater than left. The upper lobes appear clear. There is no pleural effusion or pneumothorax. The skeletal structures are osteopenic. Compression deformities and degenerative change are noted in the thoracic spine. IMPRESSION: 1. Right greater than left bibasilar airspace consolidation. This is typical for pneumonia/aspiration pneumonitis. Radiographic follow-up to resolution is recommended. 2. Cardiomegaly without radiographic evidence of congestive failure. ACT 112: Negative or not required by law. Electronically signed by: Rosendo Murguia M.D. 03/08/2021 2:[address] 03/08/21 15:09 CT chest diagnostic wo con CT DOSE: 427.57 mGy.cm HISTORY: Shortness of breath. Right lower lobe pneumonia. TECHNIQUE: Multiaxial CT images of the chest were performed without contrast. A dose lowering technique was utilized adhering to the principles of ALARA. COMPARISON: Chest CT 10/04/2017. FINDINGS: No pneumothorax. No pleural effusions. Mosaic attenuation again noted within the lungs consistent with air trapping. There is chronic bronchiectasis within the basilar segments of the left lower lobe with associated bronchial w all thickening, distal bronchi mucoid opacification, and patchy airspace opacities. This is not significantly changed and is therefore considered to be chronic. There is complete opacification the right middle lobe bronchus with near complete collapse the right middle lobe. There is a thin sliver of aerated right middle lobe remaining. This is likely due to mucoid opacification of the right middle lobe bronchus possibly from aspiration. A central obstructing mass would be the diagnosis of exclusion. Therefore, follow-up bronchoscopy recommended. Small patchy density within the right upper lobe anteriorly on image 197. Lobular area of consolidation within the right lower lobe posteriorly which measures approximately 6.2 x 5.1 cm. This is best seen on image 183. This demonstrates slight mass effect along the right lower lobe bronchi. There are a few additional subcentimeter satellite nodular densities within the right lower lobe some which demonstrate a tree-in-bud pattern. This favors a pneumonia. An underlying pulmonary mass would be the diagnosis of exclusion given the slight mass effect along the right lower lobe bronchi. Therefore, follow-up to resolution or bronchoscopy is recommended for further evaluation. The visualized liver, spleen, and adrenal glands are unremarkable. The heart remains mildly enlarged. No significant pericardial effusion. Mild mediastinal and right hilar lymphadenopathy. This is nonspecific but could be reactive. Normal esophagus. Normal caliber thoracic aorta. Moderate calcified plaque within the coronary arteries. No suspicious lytic or blastic osseous lesions. The main pulmonary artery remains enlarged consistent with pulmonary arterial hypertension. IMPRESSION: 1. There is complete opacification the right middle lobe bronchus with near complete collapse the right middle lobe. There is a thin sliver of aerated right middle lobe remaining. This is likely due to mucoid opacification of the right middle lobe bronchus possibly from aspiration. A central obstructing mass would be the diagnosis of exclusion. Therefore, follow-up bronchoscopy recommended. 2. Lobular area of consolidation within the right lower lobe posteriorly which measures approximately 6.2 x 5.1 cm. This is new from the prior study. This demonstrates slight mass effect along the right lower lobe bronchi. There are a few additional subcentimeter satellite nodular densities within the right lower lobe some which demonstrate a tree-in-bud pattern. This favors a pneumonia. An underlying pulmonary mass would be the diagnosis of exclusion given the slight mass effect along the right lower lobe bronchi. Therefore, follow-up to resolution or bronchoscopy is recommended for further evaluation. 3. Chronic left lower lobe bronchiectasis, bronchial wall thickening, mucous plugging, and airspace opacities. 4. Mild mediastinal and right hilar lymphadenopathy. This may be reactive. 5. Chronic pulmonary arterial hypertension again noted. ACT 112: Positive. There are findings on this exam that require communication between the performing entity and the patient following Patient Test Result Information Act ([place] Act 112) guidelines. Electronically signed by: Rinku Key M.D. 03/08/2021 3:52 PM Discharge Plan Visit Data Chief Complaint: Abnormal Labs/Diagnostic Testing Stated Complaint: LIVER ENZYMES HIGH,PNEUMONIA IN LUNG,REF BY DOC ED Provider: Jd Marshall Discharge Problem: Right lower lobe pneumonia, Recurrent bronchiectasis, Tobacco use, Abnormal LFTs, COPD (chronic obstructive pulmonary disease), History of pulmonary a spergillosis, Acute UTI Forms Stand Alone Forms: [facility] Prescriptions Prescriptions: No Action aspirin [Adult Low Dose Aspirin] 81 mg tablet,delayed release (DR/EC) 81 mg PO DAILY RF: 0 metoprolol tartrate 25 mg tablet 25 mg PO BID RF: 0 pantoprazole [Protonix] 40 mg tablet,delayed release (DR/EC) 40 mg PO DAILY RF: 0 Spiriva Respimat 1.25 mcg/actuation mist 2 inh inhalation DAILY Qty: 4 RF: 5 acetaminophen 325 mg tablet 650 mg PO Q4H PRN (Reason: Pain) RF: 0 Symbicort 160-4.5 mcg/actuation HFA aerosol inhaler 2 puffs INH BID Qty: 10.2 RF: 7 clonazepam 1 mg tablet 1 mg PO BID PRN (Reason: Anxiety) RF: 0 ipratropium-albuterol 0.5 mg-3 mg(2.5 mg base)/3 mL solution for nebulization 3 ml INH QID PRN (Reason: Shortness Of Breath Or Wheezing) RF: 0 amoxicillin-pot clavulanate 875-125 mg tablet 1 tab PO BID RF: 0 voriconazole 200 mg tablet 200 mg PO BID RF: 0 albuterol sulfate 90 mcg/actuation HFA aerosol inhaler 2 inh INH QID PRN (Reason: Shortness Of Breath) RF: 0 Referrals Referrals: Marta Greenwood D.O. [Primary Care Provider] - Discharge Problem: Right lower lobe pneumonia Qualifiers: Pneumonia type: due to unspecified organism Qualified Code(s): J18.9 - Pneumonia, unspecified organism COPD (chronic obstructive pulmonary disease) Qualifiers: COPD type: COPD with acute exacerbation Qualified Code(s): J44.1 - Chronic obstructive pulmonary disease with (acute) exacerbation
[2021-03-08 15:38] LABS: Basophils # (auto) 0.08 K/uL (0-0.2); Basophils % (auto) 0.7 %; Eosinophils # (auto) 2.12 K/uL (0-0.5); Eosinophils % (auto) 17.4 %; Hematocrit (blood only) 37.6 % (37-47); Hemoglobin 11.4 g/dL (12.0-16.0); Immature Granulocytes # (auto) 0.14 K/uL (0.00-0.02); Immature Granulocytes % (auto) 1.2 %; Lymphocytes # (auto) 2.55 K/uL (1.2-3.4); Mean Corpuscular Hemoglobin 28.1 pg (25-34); Mean Corpuscular Hgb Conc 30.3 g/dL (32-36); Mean Corpuscular Volume 92.6 fL (80-100); Mean Platelet Volume 10.4 fL (7.4-10.4); Monocytes # (auto) 0.86 K/uL (0.11-0.59); Monocytes % (auto) 7.1 %; Neutrophils % (auto) 52.6 %; Platelet Count 495 K/uL (130-400); RDW Coefficient of Variation 15.5 % (11.5-14.5); RDW Standard Deviation 52.9 fL (36.4-46.3); Red Blood Count 4.06 M/uL (4.2-5.4); White Blood Count 12.15 K/uL (4.8-10.8)
[2021-03-08 15:53] LABS: Albumin Level 2.2 gm/dl (3.4-5.0); BUN Creatinine Ratio 14.7 (10-20); Creatinine Clr Calc Pharmacy 90.7 ml/min; Est GFR (African American) 109.1 ml/min; Est GFR (Non-African American) 94.1 ml/min; Potassium 3.8 mmol/L (3.5-5.1)
--- NOTE | 2021-03-08 15:53 | CT Scan Report ---
CT chest diagnostic wo con CT DOSE: 427.57 mGy.cm HISTORY: Shortness of breath. Right lower lobe pneumonia. TECHNIQUE: Multiaxial CT images of the chest were performed without contrast. A dose lowering techni que was utilized adhering to the principles of ALARA. COMPARISON: Chest CT 10/04/2017. FINDINGS: No pneumothorax. No pleural effusions. Mosaic attenuation again noted within the lungs cons istent with air trapping. There is chronic bronchiectasis within the basilar segments of the left low er lobe with associated bronchial wall thickening, distal bronchi mucoid opacification, and patchy ai rspace opacities. This is not significantly changed and is therefore considered to be chronic. There is complete opacification the right middle lobe bronchus with near complete collapse the right middle lobe. There is a thin sliver of aerated right middle lobe remaining. This is likely due to mucoid op acification of the right middle lobe bronchus possibly from aspiration. A central obstructing mass wo uld be the diagnosis of exclusion. Therefore, follow-up bronchoscopy recommended. Small patchy densit y within the right upper lobe anteriorly on image 197. Lobular area of consolidation within the right lower lobe posteriorly which measures approximately 6.2 x 5.1 cm. This is best seen on image 183. Th is demonstrates slight mass effect along the right lower lobe bronchi. There are a few additional sub centimeter satellite nodular densities within the right lower lobe some which demonstrate a tree-in-b ud pattern. This favors a pneumonia. An underlying pulmonary mass would be the diagnosis of exclusion given the slight mass effect along the right lower lobe bronchi. Therefore, follow-up to resolution or bronchoscopy is recommended for further evaluation. The visualized liver, spleen, and adrenal glan ds are unremarkable. The heart remains mildly enlarged. No significant pericardial effusion. Mild med iastinal and right hilar lymphadenopathy. This is nonspecific but could be reactive. Normal esophagus . Normal caliber thoracic aorta. Moderate calcified plaque within the coronary arteries. No suspiciou s lytic or blastic osseous lesions. The main pulmonary artery remains enlarged consistent with pulmon herminia arterial hypertension. IMPRESSION: 1. There is complete opacification the right middle lobe bronchus with near complete collapse the rig ht middle lobe. There is a thin sliver of aerated right middle lobe remaining. This is likely due to mucoid opacification of the right middle lobe bronchus possibly from aspiration. A central obstructin g mass would be the diagnosis of exclusion. Therefore, follow-up bronchoscopy recommended. 2. Lobular area of consolidation within the right lower lobe posteriorly which measures approximately 6.2 x 5.1 cm. This is new from the prior study. This demonstrates slight mass effect along the right lower lobe bronchi. There are a few additional subcentimeter satellite nodular densities within the right lower lobe some which demonstrate a tree-in-bud pattern. This favors a pneumonia. An underlying pulmonary mass would be the diagnosis of exclusion given the slight mass effect along the right lowe r lobe bronchi. Therefore, follow-up to resolution or bronchoscopy is recommended for further evaluat ion. 3. Chronic left lower lobe bronchiectasis, bronchial wall thickening, mucous plugging, and airspace o pacities. 4. Mild mediastinal and right hilar lymphadenopathy. This may be reactive. 5. Chronic pulmonary arterial hypertension again noted. ACT 112: Positive. There are findings on this exam that require communication between the performing entity and the patient following Patient Test Result Information Act ([place] Act 112) guidelines. Electronically signed by: Rinku Key M.D. 03/08/2021 3:52 PM
[2021-03-08 16:09] LABS: Albumin Globulin Ratio 0.4 (0.9-2); Bilirubin,Total 0.4 mg/dl (0.2-1); Total Protein 7.2 gm/dl (6.4-8.2)
[2021-03-08] MEDS ORDERED: AMBISOME IV ONE (16:15)
[2021-03-08] MEDS ORDERED: ERTAPENEM SODIUM 1,000 MG in SODIUM CHLORIDE 0.9% 50 ML IV ONE (16:15)
[2021-03-08] MEDS ORDERED: DEXTROSE 5% IV ONE (16:15)
--- NOTE | 2021-03-08 16:28 | History & Physical Report ---
Date of Service March 08, 2021 Assessment & Plan (1) Pneumonia: Plan: Patient with significant changes of the imaging of her lung. 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 Imaging of her chest shows concern for right middle lobe occlusion opacification and also a newfound right lower lobe mass. Patient is a previous history of MRSA infections subsequently she will also be covered for bacterial pneumonia both gram-negative and MRSA and have her voriconazole changed to amphotericin per pharmacy recommendations due to her chemical hepatitis. Pulmonary consultation be undertaken patient be kept n.p.o. Will not use chemoprophylaxis for DVT prevention at this time in case bronchoscopy is warranted and intervention will be required (2) Abnormal LFTs: Plan: Chemical hepatitis is only affecting alkaline phosphatase for consult is being held LFTs will be followed avoiding other hepatotoxic medications (3) Chronic respiratory failure: Plan: Patient has a history of COPD and chronic respiratory failure we will continue her inhaled medications, patient states she believes her chronic lung disease is about usual for her. She does have oxygen at home which she does not use daily but uses when she feels short of breath or when her sats are low. (4) HTN (hypertension): Plan: Patient remains on metoprolol (5) GERD (gastroesophageal reflux disease): Plan: First appointment had was continued for GERD History of Present Illness Primary Care Provider: Martamary Greenwood 65-year-old female sent to the ER for abnormal laboratories by her outpatient p ulmonologist. 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 Her LFTs had been going up over the last few checks and today she was told to present because they were higher than they had been. She seeks her care in the [facility] system with Dr Mehreen Lundberg. Upon presentation here the patient has newfound lung infiltrates with complete occlusion of the right middle lobe and a new right lower lobe lesion. Patient was given amphotericin in the ER but did have a reaction. Patient will be admitted for evaluation of her lung lesions. She is also begun on antibacterial treatment for possible bacterial pneumonia. She will have coverage for both gram-negative's and MRSA. Pending pulmonary consultation. Patient is currently stable in the emergency department Allergies Allergy/AdvReac Type Severity Reaction Status Date / Time cephalexin Allergy Severe Unknown Verified 03/08/21 15:23 Iodinated Contrast Media Allergy Severe HIVES Verified 03/08/21 15:23 loracarbef Allergy Intermediate "THINK IT Verified 03/08/21 15:23 WAS A RASH" coffee (Coffea arabica) Allergy Unknown POSITIVE Verified 03/08/21 15:23 ALLERGY TEST mustard AdvReac Unknown POSITIVE Verified 03/08/21 15:23 ALLERGY TEST Home Medications Medication Instructions Recorded Confirmed Type aspirin 81 mg tablet,delayed 81 mg PO DAILY 02/20/19 03/08/21 History release (Adult Low Dose Aspirin) metoprolol tartrate 25 mg tablet 25 mg PO BID 02/20/19 03/08/21 History pantoprazole 40 mg tablet,delayed 40 mg PO DAILY 02/20/19 03/08/21 History release (Protonix) budesonide-formoterol HFA 160 2 puffs INH BID #10.2 gm 04/14/19 03/08/21 Rx mcg-4.5 mcg/actuation aerosol inhaler (Symbicort) acetaminophen 325 mg tablet 650 mg PO Q4H PRN tab 10/03/19 03/08/21 History tiotropium bromide 1.25 2 inh INHALATION DAILY #4 g 02/16/20 03/08/21 Rx mcg/actuation mist for inhalation (Spiriva Respimat) clonazepam 1 mg tablet 1 mg PO BID PRN 10/29/20 03/08/21 History ipratropium 0.5 mg-albuterol 3 mg 3 ml INH QID PRN 10/29/20 03/08/21 History (2.5 mg base)/3 mL nebulization soln albuterol sulfate 90 mcg/actuation 2 inh INH QID PRN 03/08/21 03/08/21 History aerosol inhaler amoxicillin 875 mg-potassium 1 tab PO BID 03/08/21 03/08/21 History clavulanate 125 mg tablet voriconazole 200 mg tablet 200 mg PO BID 03/08/21 03/08/21 History Past Med/Surg History Medical History Acute UTI (urinary tract infection) Bronchiectasis COPD (chronic obstructive pulmonary disease) History of pneumonia Hx of multiple pulmonary nodules Hypoxia MRSA (methicillin resistant Staphylococcus aureus) septicemia Psoriasis Recurrent bronchiectasis (11/01/11) Tobacco use Surgical History No significant past surgical history Social History Smoking Status: Former smoker Tobacco Type: Cigarettes Smoking End Date: 02/28/21; Second Hand Exposure: No; Hx Alcohol Use: No Hx Substance Use: No Preferred Language: Korean Communication Ability: Effective Circulation Librarian Required: No Beliefs That Will Affect Care: None Current Living Situation: Spouse Other Information That Helps Us Care for You: No Feels Safe at Home: Yes Safety Concerns: Feels Safe At This Time Assistive Devices: Denture - Upper Assistive Devices Comment: pt has home O2 for PRN use Review of Systems Review of Systems: Mild distress and fatigue no headache, no visual changes no speech or swallowing issues no chest pain, pressure or palpitations Chronic daily shortness of breath, nonproductive cough and occasional wheezes no abdominal pain, nausea or vomiting, has had some loose bowel movements no dysuria, hematuria or frequency no focal joint pain or swelling no back pain, CVA tenderness or radicular pain no bruising, bleeding or rashes no focal signs of weakness or numbness or altered sensation no complaints of anxiety or depression.. Physical Exam Physical Exam: The patient appeared well nourished and normally developed. Vital signs as documented. Head exam is normocephalic atraumatic Neck is without JVD, thyromegaly, or carotid bruits. Lungs are with reasonable air movement she is some rhonchorous breath sounds in the right mid and lower lung field and also the left base there is no egophony o r dullness to percussion Cardiac exam, Rhythm is regular.. No murmurs, rubs or gallops. Abdominal exam reveals normal bowel sounds, soft non tender, no masses Extremities are nonedematous and both pedal pulses are present Neurologic exam is alert and oriented, no focal loss of strength or sensation Skin is without bruises or rashes Psychologically is without concerns for anxiety or depression Results & Data Results & Data ([facility]) Vital Signs (Past 12 Hours) Vital Signs Temp Pulse Resp BP Pulse Ox 03/08/21 13:33 97.7 F 86 18 144/90 [address] chest 03/08/2021 complete opacification of the right middle lobe bronchus with near complete collapse of the right middle lobe, consider this to be secondary to mucoid impaction however mass cannot be ruled out. Lobular area of consolidation in the right lower lobe posteriorly which measures 6.2 x 5.1 cm new from prior study. There is mass-effect on the right lower lobe bronchus. Chronic left lower lobe bronchiectasis bronchial wall thickening and mucous plugging are seen. Mild mediastinal and right hilar lymphadenopathy which may be reactive changes of pulmonary hypertension noted ECG Additional Comments: KG shows normal sinus rhythm with no acute ST or T wave changes PG Care Time/CCT Total # of Minutes Spent Total Time Spent with Patient: Total time spent is greater than 50% in coordination of care (as documented) at patient's floor/unit and/or counseling patient: Coding Level of Care Code 43908 Initial Inpt Care Lvl 3 Diagnoses Abnormal LFTs R94.5 Pneumonia J18.9 Chronic respiratory failure J96.10 HTN (hypertension) I10 GERD (gastroesophageal reflux disease) K21.9
[2021-03-08] MEDS ORDERED: ALBUT/IPRATROP 3MG/0.5MG NEB 3 ML VIAL NEB STA (16:44)
[2021-03-08] MEDS ORDERED: ONDANSETRON INJ 2 MG/ML 2 ML VIAL IV PRN (16:48)
[2021-03-08] MEDS ORDERED: MoRPHine SULFATE 2 MG/ML CARP ONE (17:36)
[2021-03-08] MEDS ORDERED: ALBUTEROL HFA 8 GM INHALER INH PRN (21:27)
[2021-03-08] MEDS ORDERED: ACETAMINOPHEN 325 MG TAB PO PRN (21:27)
[2021-03-08] MEDS ORDERED: ALBUT/IPRATROP 3MG/0.5MG NEB 3 ML VIAL INH PRN (21:27)
[2021-03-08] MEDS ORDERED: VANCOMYCIN CONSULT ACTIVE PRN (21:27)
[2021-03-08] MEDS ORDERED: VANCOMYCIN HCL 2,000 MG in SODIUM CHLORIDE 0.9% 500 ML IV ONE (22:00)
[2021-03-08] MEDS: METOPROLOL TARTRATE 25 MG TAB PO SCH (22:17)
[2021-03-08] MEDS: ALBUT/IPRATROP 3MG/0.5MG NEB 3 ML VIAL INH SCH (22:25)
[2021-03-09] MEDS: ALBUT/IPRATROP 3MG/0.5MG NEB 3 ML VIAL INH SCH ×4 (00:59→20:04)
[2021-03-09 07:44] LABS: Hematocrit (blood only) 35.6 % (37-47); Hemoglobin 10.8 g/dL (12.0-16.0); Mean Corpuscular Hgb Conc 30.3 g/dL (32-36); Mean Corpuscular Volume 92.2 fL (80-100); Mean Platelet Volume 9.8 fL (7.4-10.4); Platelet Count 490 K/uL (130-400); RDW Coefficient of Variation 15.5 % (11.5-14.5); RDW Standard Deviation 52.6 fL (36.4-46.3); Red Blood Count 3.86 M/uL (4.2-5.4); White Blood Count 10.09 K/uL (4.8-10.8)
[2021-03-09 08:28] LABS: Albumin Level 2.1 gm/dl (3.4-5.0); BUN Creatinine Ratio 15.4 (10-20); Calcium 9.4 mg/dl (8.5-10.1); Creatinine Clr Calc Pharmacy 107.7 ml/min; Est GFR (African American) 115.5 ml/min; Est GFR (Non-African American) 99.6 ml/min; Potassium 3.4 mmol/L (3.5-5.1)
[2021-03-09 08:31] LABS: Bilirubin Direct 0.3 mg/dl (0-0.2); Bilirubin,Total 0.5 mg/dl (0.2-1); Total Protein 6.5 gm/dl (6.4-8.2)
--- NOTE | 2021-03-09 08:38 | Electrocardiogram Report ---
Test Reason : Blood Pressure : / mmHG Vent. Rate : 086 BPM Atrial Rate : 086 BPM P-R Int : 178 ms QRS Dur : 080 ms QT Int : 354 ms P-R-T Axes : 056 101 090 degrees QTc Int : 423 ms Poor data quality, interpretation may be adversely affected Normal sinus rhythm Poor R wave progression, consider anterior SC vs. lead placement vs. LVH Abnormal ECG When compared with ECG of 29-OCT-2020 19:54, No significant change was found Confirmed by Mark Ugarte ([id number]) on 03/09/2021 8:38:00 AM Referred By: REFERRED SELF Confirmed By:Mark Ugarte
[2021-03-09] MEDS ORDERED: POTASSIUM CHLORIDE CRTAB 20 MEQ TABCR PO STA (08:56)
--- NOTE | 2021-03-09 08:59 | Hospitalist Progress Note ---
Date of Service March 09, 2021 Assessment & Plan (1) Pneumonia: Plan: Patient with significant changes of the imaging of her lung CT Chest: IMPRESSION: 1. There is complete opacification the right middle lobe bronchus with near complete collapse the right middle lobe. There is a thin sliver of aerated right middle lobe remaining. This is likely due to mucoid opacification of the right middle lobe bronchus possibly from aspiration. A central obstructing mass would be the diagnosis of exclusion. Therefore, follow-up bronchoscopy recommended. 2. Lobular area of consolidation within the right lower lobe posteriorly which measures approximately 6.2 x 5.1 cm. This is new from the prior study. This demonstrates slight mass effect along the right lower lobe bronchi. There are a few additional subcentimeter satellite nodular densities within the right lower lobe some which demonstrate a tree-in-bud pattern. This favors a pneumonia. An underlying pulmonary mass would be the diagnosis of exclusion given the slight mass effect along the right lower lobe bronchi. Therefore, follow-up to resolution or bronchoscopy is recommended for further evaluation. 3. Chronic left lower lobe bronchiectasis, bronchial wall thickening, mucous plugging, and airspace opacities. 4. Mild mediastinal and right hilar lymphadenopathy. This may be reactive. 5. Chronic pulmonary arterial hypertension again noted. Had been on Voriconazole since d/c from hospital in November and was to remain on this until at least the end of February. Was taking up until Sunday for last dose she believes. (daughter interestingly with hx aspergillosis ~8 yrs ago requiring removal of piece of lung for tx) Her aspergillosis was diagnosed on sputum cx -- requesting records of such from both Pulmonary office and [place] d/c summary as she states she was there for a month this summer when diagnosed Continues on Vancomycin and Ertapenem given hx MRSA infections Pulmonary on consult Did get dose of Ampho B last evening but reported too much back pain and does not want any further dosing of this. Pulm to get back to me about continue use of voriconazole given patient's elevation in LFTs Will consult ID for recs as well Continue albuterol nebs, add hypertonic saline to nebs and will repeat sputum cx/s Chest physiotherapy Continue incentive spirometer, flutter valve Of note, she is also to start Neulasta by her manager float to help fight off infections given continued issues. Would benefit from f/u rheumatology outpatient for possible RA as well No bronch for now, and patient ordered diet (2) Abnormal LFTs: Plan: 2nd to voriconazole Did get dose ampho B as above, no further voriconazole FOR NOW until records received/pulm recs AST/ALP trending down but still elevated Avoid other hepatoxic medications Continue to trend (3) Chronic respiratory failure: Plan: Patient has a history of asthma/COPD and chronic respiratory failure Has O2 at home to use as needed Currently on room air, sat 95% Follows with pulmonary in [place] as above -- recs requested Pulmonary on consult -- see above (4) HTN (hypertension): Plan: BP 149/81 Continue metoprolol (5) GERD (gastroesophageal reflux disease): Plan: Continue protonix (6) Back pain: Plan: reported after ampho b -- does have 12% post-marketing reported of such holding off on further ampho B as above (7) Hypomagnesemia: Plan: Mag 1.7 -- replacement ordered also replacement of K 3.4 Mag, BMP in AM (8) Hypokalemia: Plan: replacement ordered BMP in AM (9) Diabetes mellitus: Plan: new diagnosis here last admission however patient states she is borderline. Discussed probably worse with frequent steroid use as well A1c 7.3 in system and did discuss with patient Will place on SSI while inpatient and consider agent at d/c however patient hesitant at this time. Already has neuropathy and discussed this could worsen along with other complications and would be better if better controlled Plan: continued inpatient stay discussed with pulm and will hold off chemoproph for now in case of bronch Admission and Anticipated Discharge Date Admission Date: March 08, 2021 Subjective Patient eval this afternoon. Had yet to be seen by pulmonary (entered during end of exam) but discussed no plans for bronch today but possibly tomorrow. Had been in hospital over summer and sputum cx with aspergillosis. No bronch since here in 2018. Following with Dr. Verde in [place] for pulmonology care. Had been on voriconazole for such and believes she was to complete at least 3 months which would be at the end of February at the minimum. Her daughter had hx aspergillus about 8 years ago and needed to have surgery for removal of part of her lung and that's why they decided to test for such. Had terrible back pain after getting the Ampho B and would not like any further. Quite smoking last sunday. Previously had quit for 2 months but then restarted when having a bad day thinking about of her fourth son who left behind 2 year old. Discussed with pulm and will order hypertonic saline neb with albuterol and repeat sputum cx. Request records. Vibration vest. To start Nucala for her RA but being rx by her pulm. never saw rheum it past but might not be a bad idea in future given contractures of hands. Review of Systems Review of Systems: All systems reviewed & are unremarkable except as noted in HPI & below Physical Exam Physical Exam: WD/WN, 65yo female, chronically ill appearing but in no acute distress Eyes anicteric without abn ENT: slightly dry mm Neck: trachea midline without deviation Resp: no accessory muscle use or tachypnea, auscultation with end expiratory wheezing, some rhonchi posterior lung buenrostro R mid/lower lobe coarse breath sounds L base, on room air CV: RRR, no r/m/g GI: +BS, soft, non-tender : no lassiter Skin; cool, dry, no obvious lesions/rashes Psych: AOx3, pleasant and cooperative, some anxiety when talking about son's passing in past 2 years Results & Data Results & Data ([facility]) Vital Signs (Past 12 Hours) Vital Signs Temp Pulse Pulse Resp BP BP BP 03/09/21 07:36 87 18 03/09/21 07:00 37.1 C 82 16 149/76 H 03/09/21 00:59 89 18 03/08/21 22:25 82 20 03/08/21 21:15 37 C 92 H 16 164/89 H 03/08/21 21:00 86 16 159/98 H Pulse Ox 03/09/21 07:36 96 03/09/21 07:00 94 03/09/21 00:59 89 L 03/08/21 22:25 99 03/08/21 21:15 93 03/08/21 21:00 95 Laboratory Results 03/09/21 03/09/21 03/08/21 Range/Units 07:20 07:20 18:51 WBC 10.09 (4.8-10.8) K/uL RBC 3.86 L (4.2-5.4) M/uL Hgb 10.8 L (12.0-16.0) g/dL Hct 35.6 L (37-47) % MCV 92.2 (80-100) fL MCH 28.0 (25-34) pg MCHC 30.3 L (32-36) g/dL RDW Std Deviation 52.6 H (36.4-46.3) fL RDW Coeff of Tommy 15.5 H (11.5-14.5) % Plt Count 490 H (130-400) K/uL MPV 9.8 (7.4-10.4) fL Immature Gran % (Auto) % Neut % (Auto) % Lymph % (Auto) % Nuckolls % (Auto) % Eos % (Auto) % Baso % (Auto) % Neut # (Auto) (1.4-6.5) K/uL Lymph # (Auto) (1.2-3.4) K/uL Nuckolls # (Auto) (0.11-0.59) K/uL Eos # (Auto) (0-0.5) K/uL Baso # (Auto) (0-0.2) K/uL Immature Gran # (Auto) (0.00-0.02) K/uL Sodium 141 (136-145) mmol/L Potassium 3.4 L (3.5-5.1) mmol/L Chloride 104 (98-107) mmol/L Carbon Dioxide 30 (21-32) mmol/L Anion Gap 6.0 (3-11) BUN 8 (7-18) mg/dl Creatinine 0.53 L (0.6-1.2) mg/dl Est Cr Clr Drug Dosing 107.7 ml/min Est GFR ( Amer) 115.5 ml/min Est GFR (Non-Af Amer) 99.6 ml/min BUN/Creatinine Ratio 15.4 (10-20) Glucose 94 (70-99) mg/dl Calcium 9.4 (8.5-10.1) mg/dl Total Bilirubin 0.5 (0.2-1) mg/dl Direct Bilirubin 0.3 H (0-0.2) mg/dl AST 110 H (15-37) U/L ALT 45 (12-78) U/L Alkaline Phosphatase 928 H (45-117) U/L Total Protein 6.5 (6.4-8.2) gm/dl Albumin 2.1 L (3.4-5.0) gm/dl Globulin (2.5-4.0) gm/dl Albumin/Globulin Ratio (0.9-2) Specimen Hemolysis COVID-19 Eval Order SARS-CoV-2 (PCR) NEGATIVE (Negative) 03/08/21 03/08/21 03/08/21 Range/Units 18:51 15:24 15:24 WBC 12.15 H (4.8-10.8) K/uL RBC 4.06 L (4.2-5.4) M/uL Hgb 11.4 L (12.0-16.0) g/dL Hct 37.6 (37-47) % MCV 92.6 (80-100) fL MCH 28.1 (25-34) pg MCHC 30.3 L (32-36) g/dL RDW Std Deviation 52.9 H (36.4-46.3) fL RDW Coeff of Tommy 15.5 H (11.5-14.5) % Plt Count 495 H (130-400) K/uL MPV 10.4 (7.4-10.4) fL Immature Gran % (Auto) 1.2 % Neut % (Auto) 52.6 % Lymph % (Auto) 21.0 % Nuckolls % (Auto) 7.1 % Eos % (Auto) 17.4 % Baso % (Auto) 0.7 % Neut # (Auto) 6.40 (1.4-6.5) K/uL Lymph # (Auto) 2.55 (1.2-3.4) K/uL Nuckolls # (Auto) 0.86 H (0.11-0.59) K/uL Eos # (Auto) 2.12 H (0-0.5) K/uL Baso # (Auto) 0.08 (0-0.2) K/uL Immature Gran # (Auto) 0.14 H (0.00-0.02) K/uL Sodium 138 (136-145) mmol/L Potassium 3.8 (3.5-5.1) mmol/L Chloride 105 (98-107) mmol/L Carbon Dioxide 25 (21-32) mmol/L Anion Gap 7.0 (3-11) BUN 9 (7-18) mg/dl Creatinine 0.63 (0.6-1.2) mg/dl Est Cr Clr Drug Dosing 90.7 ml/min Est GFR ( Amer) 109.1 ml/min Est GFR (Non-Af Amer) 94.1 ml/min BUN/Creatinine Ratio 14.7 (10-20) Glucose 209 H (70-99) mg/dl Calcium 10.0 (8.5-10.1) mg/dl Total Bilirubin 0.4 (0.2-1) mg/dl Direct Bilirubin (0-0.2) mg/dl AST 136 H (15-37) U/L ALT 54 (12-78) U/L Alkaline Phosphatase 986 H (45-117) U/L Total Protein 7.2 (6.4-8.2) gm/dl Albumin 2.2 L (3.4-5.0) gm/dl Globulin 5.0 H (2.5-4.0) gm/dl Albumin/Globulin Ratio 0.4 L (0.9-2) Specimen Hemolysis COVID-19 Eval Order Covid19 at [facility] SARS-CoV-2 (PCR) (Negative) Diagnostic Findings Chest X-Ray 03/08/21 13:37 TWO VIEW CHEST CLINICAL HISTORY: Cough and dyspnea. Pneumonia. FINDINGS: PA and lateral chest radiographs are compared to study dated 10/29/2020 and correlated with chest CT dated 10/04/2017. The heart is enlarged noting atherosclerotic calcification of the thoracic aorta. The pulmonary vasculature is noncongested. There is bibasilar airspace consolidation, right greater than left. The upper lobes appear clear. There is no pleural effusion or pneumothorax. The skeletal structures are osteopenic. Compression deformities and degenerative change are noted in the thoracic spine. IMPRESSION: 1. Right greater than left bibasilar airspace consolidation. This is typical for pneumonia/aspiration pneumonitis. Radiographic follow-up to resolution is recommended. 2. Cardiomegaly without radiographic evidence of congestive failure. ACT 112: Negative or not required by law. Electronically signed by: Rosendo Murguia M.D. 03/08/2021 2:[address] 03/08/21 15:09 CT chest diagnostic wo con CT DOSE: 427.57 mGy.cm HISTORY: Shortness of breath. Right lower lobe pneumonia. TECHNIQUE: Multiaxial CT images of the chest were performed without contrast. A dose lowering technique was utilized adhering to the principles of ALARA. COMPARISON: Chest CT 10/04/2017. FINDINGS: No pneumothorax. No pleural effusions. Mosaic attenuation again noted within the lungs consistent with air trapping. There is chronic bronchiectasis within the basilar segments of the left lower lobe with associated bronchial wall thickening, distal bronchi mucoid opacification, and patchy airspace opacities. This is not significantly changed and is therefore considered to be chronic. There is complete opacification the right middle lobe bronchus with near complete collapse the right middle lobe. There is a thin sliver of aerated right middle lobe remaining. This is likely due to mucoid opacification of the right middle lobe bronchus possibly from aspiration. A central obstructing mass would be the diagnosis of exclusion. Therefore, follow-up bronchoscopy recommended. Small patchy density within the right upper lobe anteriorly on image 197. Lobular area of consolidation within the right lower lobe posteriorly which measures approximately 6.2 x 5.1 cm. This is best seen on image 183. This demonstrates slight mass effect along the right lower lobe bronchi. There are a few additional subcentimeter satellite nodular densities within the right lower lobe some which demonstrate a tree-in-bud pattern. This favors a pneumonia. An underlying pulmonary mass would be the diagnosis of exclusion given the slight mass effect along the right lower lobe bronchi. Therefore, follow-up to resolution or bronchoscopy is recommended for further evaluation. The visualized liver, spleen, and adrenal glands are unremarkable. The heart remains mildly enlarged. No significant pericardial effusion. Mild mediastinal and right hilar lymphadenopathy. This is nonspecific but could be reactive. Normal esophagus. Normal caliber thoracic aorta. Moderate calcified plaque within the coronary arteries. No suspicious lytic or blastic osseous lesions. The main pulmonary artery remains enlarged consistent with pulmonary arterial hypertension. IMPRESSION: 1. There is complete opacification the right middle lobe bronchus with near complete collapse the right middle lobe. There is a thin sliver of aerated right middle lobe remaining. This is likely due to mucoid opacification of the right middle lobe bronchus possibly from aspiration. A central obstructing mass would be the diagnosis of exclusion. Therefore, follow-up bronchoscopy recommended. 2. Lobular area of consolidation within the right lower lobe posteriorly which measures approximately 6.2 x 5.1 cm. This is new from the prior study. This demonstrates slight mass effect along the right lower lobe bronchi. There are a few additional subcentimeter satellite nodular densities within the right lower lobe some which demonstrate a tree-in-bud pattern. This favors a pneumonia. An underlying pulmonary mass would be the diagnosis of exclusion given the slight mass effect along the right lower lobe bronchi. Therefore, follow-up to resolution or bronchoscopy is recommended for further evaluation. 3. Chronic left lower lobe bronchiectasis, bronchial wall thickening, mucous plugging, and airspace opacities. 4. Mild mediastinal and right hilar lymphadenopathy. This may be reactive. 5. Chronic pulmonary arterial hypertension again noted. ACT 112: Positive. There are findings on this exam that require communication between the performing entity and the patient following Patient Test Result Information Act ([place] Act 112) guidelines. Electronically signed by: Rinku Key M.D. 03/08/2021 3:52 PM PG Care Time/CCT Total # of Minutes Spent Total Time Spent with Patient: Total time spent is greater than 50% in coordination of care (as documented) at patient's floor/unit and/or counseling patient: Coding Level of Care Code 16237 Subseq Hosp Care Lvl 3 Diagnoses Pneumonia J18.9 Abnormal LFTs R94.5 Chronic respiratory failure J96.10 HTN (hypertension) I10 GERD (gastroesophageal reflux disease) K21.9 Back pain M54.9 Hypomagnesemia E83.42 Hypokalemia E87.6 Diabetes mellitus E11.9
[2021-03-09] MEDS ORDERED: ABELCET IV SCH (09:00)
[2021-03-09] MEDS ORDERED: DEXTROSE 5% IV SCH (09:00)
[2021-03-09] MEDS: UMECLIDINIUM BROMIDE 62.5MCG/BLISTER 7 PUFFS/INHALER INH SCH (09:07)
[2021-03-09] MEDS: PANTOprazole 40 MG TAB PO SCH (09:08)
[2021-03-09] MEDS: METOPROLOL TARTRATE 25 MG TAB PO SCH ×2 (09:08→21:08)
[2021-03-09] MEDS: VANCOMYCIN HCL 1,250 MG in SODIUM CHLORIDE 0.9% 250 ML IV SCH ×2 (09:55→21:08)
[2021-03-09] MEDS: FLUTICASONE/VILANTEROL 100/25MCG 14 PUFFS/INHALER INH SCH (09:55)
[2021-03-09 10:16] LABS: Appearance Urine Cloudy (Clear); Bilirubin Urine Negative (Negative); Blood Urine Negative (Negative); Color Urine Dark Yellow; Epithelial Cell Urine Auto >30 /lpf (0-5); Glucose Urine UA Negative (Negative); Ketones Urine Trace (Negative); Leukocyte Esterase Urine Trace (Negative); Nitrite Urine Negative (Negative); Protein Urine Negative (Negative); RBC Urine Automated 0-4 /hpf (0-4); Specific Gravity Urine 1.023 (1.000-1.030); Urobilinogen Urine Negative (Negative); pH Urine 5.5 (4.5-7.5)
[2021-03-09 10:29] LABS: Mucus Urine Present (None Prsent)
[2021-03-09 10:30] LABS: Bacteria Urine Automated 1+ (Negative)
--- NOTE | 2021-03-09 11:56 | Pharmacy Report ---
Pharmacy Vanc AUC Short Note - Date of Service March 09, 2021 - Assessment & Plan Assessment 65 year old F admitted yesterday secondary to abnormal blood work. * PMHx significant for COPD, recurrent pneumonia, psoriasis, current every day smoker, and MRSA septicemia. * H/o infections with MRSA, ESBL E. coli and Aspergillus * Presented to [facility] with UTI growing E. coli and with elevated LFTs. Had been taking voriconazole for aspergillus pneumonia since November and follows with [facility]. * Voriconazole stopped secondary to elevated LFTs. Started on Ambisome which was stopped due to patient having back pain (12% incidence with Ambisome in postmarketing analysis). Will await Pulmonology's input prior to any further antifungal therapy. May need ID consult. * Afebrile. Mild leukocytosis. Renal fxn stable. Ertapenem for pulm/uti and Vanc for h/o MRSA. Plan Vancomycin * AUC/HARLEEN is the preferred PK/PD target for vancomycin * AUC guided dosing is effective and associated with decreased risk of nephrotoxicity compared to traditional trough targets * Goal AUC/HARLEEN and trough of 400-600 mg/L.hr and 15-20 mcg/mL, respectively. * Loading Dose: 2000 mg (24 mg/kg) IV x 1 * Maintenance Dose: 1250 mg (15 mg/kg) IV every 12 hours * Dosing regimen is expected to achieve a steady-state AUC/HARLEEN and trough of 503 mg/L.hr and 15 mcg/mL, respectively. * Regimen is associated with a 10% risk of nephrotoxicity. * Trough level ordered for 03/10/21 prior to the 1000 dose. Pharmacy will continue to follow and will adjust dose/frequency as necessary. Thank you.
[2021-03-09] MEDS ORDERED: GLUCOSE 10 TABS/TUBE PO PRN (14:14)
[2021-03-09] MEDS ORDERED: GLUCOSE 40% GEL 15 GM TUBE PO PRN (14:14)
[2021-03-09] MEDS ORDERED: DEXTROSE 50% 50 ML SYRINGE IV PRN (14:14)
[2021-03-09] MEDS ORDERED: GLUCAGON FOR INJ 1 MG VIAL SQ PRN (14:14)
[2021-03-09] MEDS ORDERED: CARBOHYDRATES FOR HYPOGLYCEMIA PO PRN (14:14)
[2021-03-09] MEDS ORDERED: SODIUM CHLOR 7% 4 ML NEB NEB ONE (15:01)
--- NOTE | 2021-03-09 16:29 | Pulmonary Consultation ---
Date of Consultation March 09, 2021 Assessment & Plan (1) Right lower lobe pneumonia: Pneumonia type: due to unspecified organism Qualified Code(s): J18.9 - Pneumonia, unspecified organism (2) COPD (chronic obstructive pulmonary disease): COPD type: COPD with acute exacerbation Qualified Code(s): J44.1 - Chronic obstructive pulmonary disease with (acute) exacerbation (3) History of pulmonary aspergillosis: (4) Abnormal LFTs: (5) Bronchiectasis: (6) Tobacco use: (7) Hx of multiple pulmonary nodules: Attending: Dr. Choudhury Impression: There is a 65-year-old female with a complicated pulmonary history. She currently follows with Dr. Verde in [place]. Previously failed she followed with Dr. Ho who retired and referred her to [place] prior to his care home. She has a history of COPD and bronchiectasis and was recently diagnosed with aspergillosis by sputum sample and was started on voriconazole the first week of December 2020. She currently has elevated LFTs. Pulmonary was consulted for further comment on pneumonia and aspergillosis treatment. Recommendations: 1. Aspergillosis: * Patient started on voriconazole first week of December 2020. * Hold further treatment at this time secondary to LFT elevation. * Consult infectious disease * Hypertonic saline to induce sputum * Sputum culture Gram stain and sensitivities * Repeat chest x-ray in the morning 2. COPD: * Patient with no evidence of exacerbation at this time * Oxygenating well on room air * Continue home medications * Duo nebs as needed * No indication for steroids at this time 3. Pneumonia: * Unclear if this is acute or chronic * Continue treat with antibiotics empirically * Request records from [facility] * Continue with aggressive pulmonary toilet * Check procalcitonin levels 4. Multiple pulmonary nodules and question of pulmonary mass: * This appears to be new on CT scan of the chest. [facility]. However, unclear what imaging has been done by the [place] pulmonary group and whether there is ongoing treatment * Patient is unable to give us history * Have requested records from [facility] * Await further plans for biopsy or intervention until [facility] records are reviewed 5. Bronchiectasis: * Chronic * Decreased breath sounds * Hypertonic saline * Pulmonary toilet 6. Tobacco abuse: * Continue to encourage tobacco abstention * Patient has tried to cut back unsuccessfully * is also a smoker Thank you for including us in the care of this patient. We will continue to follow along with you. Please refer to Dr. Choudhury's addendum for further recommendations Supervising Physician Co-Signing Physician Notes I saw and evaluated the patient with oRsendo Pratt, and agree with findings and plan as documented in the note. Patient seen and examined at bedside. No acute distress. Patient was following up with Dr. Ho and transition her care to Dr. Zapata at [place] She has history of bronchiectasis She is active smoker. She was recently started on voriconazole for Aspergillus in the sputum. Her liver function were found to be elevated and voriconazole started Constitutional: No acute distress HEENT: EOMI, PERRLA Respiratory system: Decreased antibiotic, no wheeze, no rhonchi, positive crackles bilaterally more on the left side CVS: S1-S2 positive, no murmurs or gallops Abdomen: Soft, nontender, nondistended, positive bowel sounds x4, obese Extremities: +2 pulses bilaterally radialis/ dorsalis pedis, no cyanosis, no edema Neuro: Awake alert oriented x3 Psych: Normal mood and affect G/U: No Downing Plan: Patient does have consolidative process appreciated compared to previous CAT scan on the latest CAT scan Patient does have significant bronchiectasis especially of the left lower lobe I will treat the patient as if the patient has pneumonia with antibiotics. Follow sputum culture Hold voriconazole. Would recommend to get an infectious disease consult to get the recommendations regarding voriconazole. Patient does have significant eosinophilia at the time of presentation. I will order galactomannan She does not seem to have eosinophilia on the CBC. Try to get records from Dr. Zapata Continue with patient's inhalers for COPD. Do not think for COPD exacerbation We will do supplementation to keep oxygen at 88-92% Please note the above document was generated using voice recognition software. It may contain grammatical, syntax or spelling errors.Any formal questions or concerns about the content, text or information contained within the body of this dictation should be directly addressed to the provider for clarification. History of Present Illness Attending Physician: Terell Gastelum History of Present Illness Attending: Dr. Choudhury This is a 65-year-old female with a past medical history including diabetes mellitus, chronic tobacco abuse, COPD, history of pulmonary aspergillosis, GERD, hypertension, chronic respiratory failure, abnormal LFTs, bronchiectasis, MRSA pneumonia, multiple pulmonary nodules. Patient follows with Thierno Verde MD in [place] for pulmonary issues. She previously followed with Dr. Ho in the [place] area and was referred to Dr Verde by him just before his care home. In the past she has had [address] Ho. She reports no further bronchoscopy with the new group. She has been treated at [facility] and recently was found to have aspergil losis. She was started on voriconazole the first week of December 2020. She has had labs checked regularly and a trend was noticed where her LFTs were increasing. Consequently, she was referred to our emergency department for further evaluation. Our group was consulted due to her history of aspergillosis and question of other pneumonia. The patient's is seen in room 351 bed 2. She has no respiratory distress. She states that she has an ongoing cough but very little sputum production. She denies any fever, chills, sweats, rigors. She does smoke daily. Also her is a daily smoker. They do smoke outside. Patient denies any previous history of malignancy. She has no hemoptysis. She has no other acute complaints. Allergies Allergy/AdvReac Type Severity Reaction Status Date / Time cephalexin Allergy Severe Unknown Verified 03/08/21 15:23 Iodinated Contrast Media Allergy Severe HIVES Verified 03/08/21 15:23 loracarbef Allergy Intermediate "THINK IT Verified 03/08/21 15:23 WAS A RASH" coffee (Coffea arabica) Allergy Unknown POSITIVE Verified 03/08/21 15:23 ALLERGY TEST mustard AdvReac Unknown POSITIVE Verified 03/08/21 15:23 ALLERGY TEST Home Medications Medication Instructions Recorded Confirmed Type aspirin 81 mg tablet,delayed 81 mg PO DAILY 02/20/19 03/08/21 History release (Adult Low Dose Aspirin) metoprolol tartrate 25 mg tablet 25 mg PO BID 02/20/19 03/08/21 History pantoprazole 40 mg tablet,delayed 40 mg PO DAILY 02/20/19 03/08/21 History release (Protonix) budesonide-formoterol HFA 160 2 puffs INH BID #10.2 gm 04/14/19 03/08/21 Rx mcg-4.5 mcg/actuation aerosol inhaler (Symbicort) acetaminophen 325 mg tablet 650 mg PO Q4H PRN tab 10/03/19 03/08/21 History tiotropium bromide 1.25 2 inh INHALATION DAILY #4 g 02/16/20 03/08/21 Rx mcg/actuation mist for inhalation (Spiriva Respimat) clonazepam 1 mg tablet 1 mg PO BID PRN 10/29/20 03/08/21 History ipratropium 0.5 mg-albuterol 3 mg 3 ml INH QID PRN 10/29/20 03/08/21 History (2.5 mg base)/3 mL nebulization soln albuterol sulfate 90 mcg/actuation 2 inh INH QID PRN 03/08/21 03/08/21 History aerosol inhaler amoxicillin 875 mg-potassium 1 tab PO BID 03/08/21 03/08/21 History clavulanate 125 mg tablet voriconazole 200 mg tablet 200 mg PO BID 03/08/21 03/08/21 History Patient History Medical History Acute UTI (urinary tract infection) Bronchiectasis COPD (chronic obstructive pulmonary disease) History of pneumonia Hx of multiple pulmonary nodules Hypoxia MRSA (methicillin resistant Staphylococcus aureus) septicemia Psoriasis Recurrent bronchiectasis (11/01/11) Tobacco use Surgical History No significant past surgical history Social History Smoking Status: Former smoker Tobacco Type: Cigarettes Smoking End Date: 02/28/21; Second Hand Exposure: No; Hx Alcohol Use: No Hx Substance Use: No Preferred Language: Bhutanese Communication Ability: Effective Pedicurist Required: No Beliefs That Will Affect Care: None marital status: Current Living Situation: Spouse How many Children do You have: 5 Other Information That Helps Us Care for You: No Feels Safe at Home: Yes Safety Concerns: Feels Safe At This Time Assistive Devices: None Assistive Devices Comment: pt has home O2 for PRN use Review of Systems Review of Systems: All systems reviewed & are unremarkable except as noted in Subjective Physical Exam Physical Exam: Patient seen and examined in room 351 bed [address] Choudhury's addendum for physical examination Results & Data Results & Data ([facility]) Vital Signs (Past 12 Hours) Vital Signs Temp Pulse Resp BP Pulse Ox 03/09/21 15:58 89 18 95 03/09/21 15:41 36.4 C L 91 H 20 149/81 H 89 L 03/09/21 14:20 81 16 95 03/09/21 12:43 80 20 95 03/09/21 07:36 87 18 96 03/09/21 07:00 37.1 C 82 16 149/76 H 94 Laboratory Results 03/09/21 07:20 03/09/21 07:20 COVID-19 Results 03/08/21 18:51 SARS-CoV-2 (PCR) NEGATIVE Diagnostic Findings CT chest diagnostic wo con CT DOSE: 427.57 mGy.cm HISTORY: Shortness of breath. Right lower lobe pneumonia. TECHNIQUE: Multiaxial CT images of the chest were performed without contrast. A dose lowering technique was utilized adhering to the principles of ALARA. COMPARISON: Chest CT 10/04/2017. FINDINGS: No pneumothorax. No pleural effusions. Mosaic attenuation again noted within the lungs consistent with air trapping. There is chronic bronchiectasis within the basilar segments of the left lower lobe with associated bronchial wall thickening, distal bronchi mucoid opacification, and patchy airspace opacities. This is not significantly changed and is therefore considered to be chronic. There is complete opacification the right middle lobe bronchus with near complete collapse the right middle lobe. There is a thin sliver of aerated right middle lobe remaining. This is likely due to mucoid opacification of the right middle lobe bronchus possibly from aspiration. A central obstructing mass would be the diagnosis of exclusion. Therefore, follow-up bronchoscopy recommended. Small patchy density within the right upper lobe anteriorly on image 197. Lobular area of consolidation within the right lower lobe posteriorly which measures approximately 6.2 x 5.1 cm. This is best seen on image 183. This demonstrates slight mass effect along the right lower lobe bronchi. There are a few additional subcentimeter satellite nodular densities within the right lower lobe some which demonstrate a tree-in-bud pattern. This favors a pneumonia. An underlying pulmonary mass would be the diagnosis of exclusion given the slight mass effect along the right lower lobe bronchi. Therefore, follow-up to resolution or bronchoscopy is recommended for further evaluation. The visualized liver, spleen, and adrenal glands are unremarkable. The heart remains mildly enlarged. No significant pericardial effusion. Mild mediastinal and right hilar lymphadenopathy. This is nonspecific but could be reactive. Normal esophagus. Normal caliber thoracic aorta. Moderate calcified plaque within the coronary arteries. No suspicious lytic or blastic osseous lesions. The main pulmonary artery remains enlarged consistent with pulmonary arterial hypertension. IMPRESSION: 1. There is complete opacification the right middle lobe bronchus with near complete collapse the right middle lobe. There is a thin sliver of aerated right middle lobe remaining. This is likely due to mucoid opacification of the right m iddle lobe bronchus possibly from aspiration. A central obstructing mass would be the diagnosis of exclusion. Therefore, follow-up bronchoscopy recommended. 2. Lobular area of consolidation within the right lower lobe posteriorly which measures approximately 6.2 x 5.1 cm. This is new from the prior study. This demonstrates slight mass effect along the right lower lobe bronchi. There are a few additional subcentimeter satellite nodular densities within the right lower lobe some which demonstrate a tree-in-bud pattern. This favors a pneumonia. An underlying pulmonary mass would be the diagnosis of exclusion given the slight mass effect along the right lower lobe bronchi. Therefore, follow-up to resolution or bronchoscopy is recommended for further evaluation. 3. Chronic left lower lobe bronchiectasis, bronchial wall thickening, mucous pl ugging, and airspace opacities. 4. Mild mediastinal and right hilar lymphadenopathy. This may be reactive. 5. Chronic pulmonary arterial hypertension again noted. ACT 112: Positive. There are findings on this exam that require communication between the performing entity and the patient following Patient Test Result Information Act ([place] Act 112) guidelines. Electronically signed by: Rinku Key M.D. 03/08/2021 3:52 PM PG Care Time/CCT Total # of Minutes Spent Total Time Spent with Patient: Total time spent is greater than 50% in coordination of care (as documented) at patient's floor/unit and/or counseling patient: 60 minutes Coding Level of Care Code 05024 Inpt Consult Level 5 Diagnoses Right lower lobe pneumonia J18.9 Pneumonia type: due to unspecified organism COPD (chronic obstructive pulmonary disease) J44.1 COPD type: COPD with acute exacerbation History of pulmonary aspergillosis Z86.19 Abnormal LFTs R94.5 Bronchiectasis J47.9 Tobacco use Z72.0 Hx of multiple pulmonary nodules Z87.898 Time Spent (min) 60
[2021-03-09] MEDS ORDERED: MAGNESIUM SULFATE / D5W 1 GM/100 ML BAG IV ONE (16:45)
[2021-03-09] MEDS: ERTAPENEM SODIUM 1,000 MG in SODIUM CHLORIDE 0.9% 50 ML IV SCH (16:45)
[2021-03-09] MEDS: INSULIN ASPART 100 UNITS/ML VIAL SC SCH ×2 (17:40→20:34)
[2021-03-09] MEDS: SODIUM CHLOR 7% 4 ML NEB NEB SCH (20:05)
[2021-03-09] MEDS: clonazePAM 1 MG TAB PO PRN (22:44)
[2021-03-10] MEDS: ALBUT/IPRATROP 3MG/0.5MG NEB 3 ML VIAL INH SCH ×4 (00:50→20:02)
[2021-03-10 05:57] LABS: Hematocrit (blood only) 35.5 % (37-47); Hemoglobin 10.8 g/dL (12.0-16.0); Mean Corpuscular Hemoglobin 28.1 pg (25-34); Mean Corpuscular Hgb Conc 30.4 g/dL (32-36); Mean Corpuscular Volume 92.4 fL (80-100); Platelet Count 477 K/uL (130-400); RDW Coefficient of Variation 15.4 % (11.5-14.5); RDW Standard Deviation 52.4 fL (36.4-46.3); Red Blood Count 3.84 M/uL (4.2-5.4)
[2021-03-10 06:35] LABS: Calcium 9.4 mg/dl (8.5-10.1); Creatinine Clr Calc Pharmacy 107.7 ml/min; Est GFR (African American) 115.5 ml/min; Est GFR (Non-African American) 99.6 ml/min; Potassium 3.9 mmol/L (3.5-5.1)
[2021-03-10] MEDS: SODIUM CHLOR 7% 4 ML NEB NEB SCH ×2 (06:57→19:55)
--- NOTE | 2021-03-10 08:35 | Hospitalist Progress Note ---
Date of Service March 10, 2021 Assessment & Plan (1) Pneumonia: Plan: Patient with significant changes of the imaging of her lung CT Chest: IMPRESSION: 1. There is complete opacification the right middle lobe bronchus with near complete collapse the right middle lobe. There is a thin sliver of aerated right middle lobe remaining. This is likely due to mucoid opacification of the right middle lobe bronchus possibly from aspiration. A central obstructing mass would be the diagnosis of exclusion. Therefore, follow-up bronchoscopy recommended. 2. Lobular area of consolidation within the right lower lobe posteriorly which measures approximately 6.2 x 5.1 cm. This is new from the prior study. This demonstrates slight mass effect along the right lower lobe bronchi. There are a few additional subcentimeter satellite nodular densities within the right lower lobe some which demonstrate a tree-in-bud pattern. This favors a pneumonia. An underlying pulmonary mass would be the diagnosis of exclusion given the slight mass effect along the right lower lobe bronchi. Therefore, follow-up to resolution or bronchoscopy is recommended for further evaluation. 3. Chronic left lower lobe bronchiectasis, bronchial wall thickening, mucous plugging, and airspace opacities. 4. Mild mediastinal and right hilar lymphadenopathy. This may be reactive. 5. Chronic pulmonary arterial hypertension again noted. Had been on Voriconazole since d/c from hospital in November and was to remain on this until at least the end of February. Was taking up until Sunday for last dose she believes. (daughter interestingly with hx aspergillosis ~8 yrs ago requiring removal of piece of lung for tx) --> causing elevated LFTs and this was held Got ampho B x 1 dose, back pain and refusing further. Pulmonary consult -- would tx 14days abx for pna and have her follow up with usual geospatial engineer. awaiting ID input and would hold off VOriconazole for now. --> did have significant eosinophilia at time of presentation and additional studies ordered Aspergillosis was diagnosed on sputum cx [place] during hospitalization-- requesting records of such from both Pulmonary office and [place] d/c summary * Awaiting further plans for biopsy or intervention until [facility] records are reviewed Continues on Vancomycin and Ertapenem given hx MRSA infections Sputum cx with staph species -- follow Continue nebs, hypertonic saline nebs, chest physiotherapy, incentive spirometer and flutter valve WBC wnl, remains afebrile Does have desaturations on room air at times and will need formal 2step prior to dc (she has O2 at home but only using when needed..suspect would need w activity) Of note, she is also to start Neulasta by her geospatial engineer to help fight off infections given continued issues. Would benefit from f/u rheumatology outpatien t for possible RA as well Continue to monitor (2) Abnormal LFTs: Plan: 2nd to voriconazole Did get dose ampho B as above, no further voriconazole FOR NOW until records received/pulm recs AST/ALP trending down but still elevated Avoid other hepatoxic medications Continue to trend (3) Chronic respiratory failure: Plan: Patient has a history of asthma/COPD and chronic respiratory failure Has O2 at home to use as needed Currently on room air but O2 does dip down at times Records requested as above, pulm on consult continue nebs, pulmonary toilet will need f/u with her pulmonary doc at d/c (4) HTN (hypertension): Plan: BP 157/84 Continue metoprolol (5) GERD (gastroesophageal reflux disease): Plan: Continue protonix (6) Back pain: Plan: reported after ampho b -- does have 12% post-marketing reported of such holding off on further ampho B as above no further issues (7) Hypomagnesemia: Plan: Mag 1.7 -- replacement ordered also replacement of K 3.4 RESOLVED ON AM LABS (8) Hypokalemia: Plan: replacement ordered, RESOLVED (9) Diabetes mellitus: Plan: new diagnosis here last admission however patient states she is borderline. Discussed probably worse with frequent steroid use as well A1c 7.3 in system and did discuss with patient Will place on SSI while inpatient and consider agent at d/c however patient hesitant at this time --> BSGs acceptable Already has neuropathy and discussed this could worsen along with other complications and would be better if better controlled (10) Vitamin D deficiency: Plan: Ca elevated in past. skeletal structures osteopenic on imaging and checked Vit D level --> low at 11. Start 50,000 weekly vitamin D, continue at d/c PTH appropriately elevated given vit D deficiency Plan: continued inpatient stay discussed with pulm and will hold off chemoproph for now in case of bronch ID consult pending likely to remain inpatient couple more days of note, patient with home on IV abx in past and PICC line if needed. CM alerted in event we need IV abx for d/c as appears prior admits needed to remain on IV for invasive infection without appropriate coverage for lung w [place] Admission and Anticipated Discharge Date Admission Date: March 08, 2021 Subjective patient evaluated this afternoon, up in bed eating lunch. She feels better. coughing up junk. sputum cx pending. per pulm, abx x 14 days. awaiting outside records. holding off on voriconazole for right now but she will need f/u with pulm in 2 weeks, her usual geospatial engineer. no plans for bronch at this time. ID consultation pending No fever, chills, chest pain, shortness of breath. O2 read slightly low but she thinks due to her arthritis. She states she has had PICC lines in the past for abx and would ideally like to go home tomorrow if possible. Will alert CM for possible need for IV and await ID consultation. will need 2 step prior to d/c per pulm. Review of Systems Review of Systems: All systems reviewed & are unremarkable except as noted in HPI & below Physical Exam Physical Exam: WD/WN, 65yo female, chronically ill appearing but in no acute distress Eyes anicteric without abn ENT: mmm, trachea midline Neck: trachea midline without deviation Resp: no accessory muscle use or tachypnea, auscultation with end expiratory wheezing (decreased), some rhonchi posterior lung buenrostro R mid/lower lobe coarse breath sounds L base, overall with improved aeration though, on 2L NC with SPo2 95% CV: RRR, no r/m/g GI: +BS, soft, non-tender : no lassiter Skin; cool, dry, no obvious lesions/rashes. hands with evidence of RA Psych: AOx3, pleasant and cooperative, some anxiety when talking about son's passing in past 2 years Results & Data Results & Data ([facility]) Vital Signs (Past 12 Hours) Vital Signs Temp Pulse Resp BP Pulse Ox 03/10/21 08:20 37.3 C 85 16 155/84 H 91 03/10/21 06:58 78 18 92 03/09/21 23:11 37.2 C 90 18 154/79 H 94 03/09/21 21:08 95 H 153/83 H Laboratory Results 1103/10/21 03/10/21 Range/Units 08:18 05:33 05:33 WBC 9.30 (4.8-10.8) K/uL RBC 3.84 L (4.2-5.4) M/uL Hgb 10.8 L (12.0-16.0) g/dL Hct 35.5 L (37-47) % MCV 92.4 (80-100) fL MCH 28.1 (25-34) pg MCHC 30.4 L (32-36) g/dL RDW Std Deviation 52.4 H (36.4-46.3) fL RDW Coeff of Tommy 15.4 H (11.5-14.5) % Plt Count 477 H (130-400) K/uL MPV 10.0 (7.4-10.4) fL Sodium 139 (136-145) mmol/L Potassium 3.9 (3.5-5.1) mmol/L Chloride 105 (98-107) mmol/L Carbon Dioxide 28 (21-32) mmol/L Anion Gap 6.0 (3-11) BUN 9 (7-18) mg/dl Creatinine 0.53 L (0.6-1.2) mg/dl Est Cr Clr Drug Dosing 107.7 ml/min Est GFR ( Amer) 115.5 ml/min Est GFR (Non-Af Amer) 99.6 ml/min BUN/Creatinine Ratio 17.0 (10-20) Glucose 158 H (70-99) mg/dl POC Glucose 130 H (70-99) mg/dl Calcium 9.4 (8.5-10.1) mg/dl Magnesium (1.8-2.4) mg/dl 25-OH Vitamin D Total (30-100) ng/ml PTH Intact Urine Color Urine Appearance (Clear) Urine pH (4.5-7.5) Ur Specific [place] (1.000-1.030) Urine Protein (Negative) Urine Glucose (UA) (Negative) Urine Ketones (Negative) Urine Blood (Negative) Urine Nitrite (Negative) Urine Bilirubin (Negative) Urine Urobilinogen (Negative) Ur Leukocyte Esterase (Negative) Urine WBC (Auto) (0-5) /hpf Urine RBC (Auto) (0-4) /hpf U Hyaline Cast (Auto) (0-5) /lpf U Epithel Cells (Auto) (0-5) /lpf Urine Bacteria (Auto) (Negative) Urine Mucus (None Prsent) 03/10/21 03/09/21 03/09/21 Range/Units 05:33 20:24 17:01 WBC (4.8-10.8) K/uL RBC (4.2-5.4) M/uL Hgb (12.0-16.0) g/dL Hct (37-47) % MCV (80-100) fL MCH (25-34) pg MCHC (32-36) g/dL RDW Std Deviation (36.4-46.3) fL RDW Coeff of Tommy (11.5-14.5) % Plt Count (130-400) K/uL MPV (7.4-10.4) fL Sodium (136-145) mmol/L Potassium (3.5-5.1) mmol/L Chloride (98-107) mmol/L Carbon Dioxide (21-32) mmol/L Anion Gap (3-11) BUN (7-18) mg/dl Creatinine (0.6-1.2) mg/dl Est Cr Clr Drug Dosing ml/min Est GFR ( Amer) ml/min Est GFR (Non-Af Amer) ml/min BUN/Creatinine Ratio (10-20) Glucose (70-99) mg/dl POC Glucose 131 H 130 H (70-99) mg/dl Calcium (8.5-10.1) mg/dl Magnesium (1.8-2.4) mg/dl 25-OH Vitamin D Total (30-100) ng/ml PTH Intact Pending Urine Color Urine Appearance (Clear) Urine pH (4.5-7.5) Ur Specific [place] (1.000-1.030) Urine Protein (Negative) Urine Glucose (UA) (Negative) Urine Ketones (Negative) Urine Blood (Negative) Urine Nitrite (Negative) Urine Bilirubin (Negative) Urine Urobilinogen (Negative) Ur Leukocyte Esterase (Negative) Urine WBC (Auto) (0-5) /hpf Urine RBC (Auto) (0-4) /hpf U Hyaline Cast (Auto) (0-5) /lpf U Epithel Cells (Auto) (0-5) /lpf Urine Bacteria (Auto) (Negative) Urine Mucus (None Prsent) 03/09/21 03/09/21 03/09/21 Range/Units 09:15 07:20 06:12 WBC (4.8-10.8) K/uL RBC (4.2-5.4) M/uL Hgb (12.0-16.0) g/dL Hct (37-47) % MCV (80-100) fL MCH (25-34) pg MCHC (32-36) g/dL RDW Std Deviation (36.4-46.3) fL RDW Coeff of Tommy (11.5-14.5) % Plt Count (130-400) K/uL MPV (7.4-10.4) fL Sodium (136-145) mmol/L Potassium (3.5-5.1) mmol/L Chloride (98-107) mmol/L Carbon Dioxide (21-32) mmol/L Anion Gap (3-11) BUN (7-18) mg/dl Creatinine (0.6-1.2) mg/dl Est Cr Clr Drug Dosing ml/min Est GFR ( Amer) ml/min Est GFR (Non-Af Amer) ml/min BUN/Creatinine Ratio (10-20) Glucose (70-99) mg/dl POC Glucose (70-99) mg/dl Calcium (8.5-10.1) mg/dl Magnesium 1.7 L (1.8-2.4) mg/dl 25-OH Vitamin D Total 11.0 L (30-100) ng/ml PTH Intact Urine Color Dark Yellow Urine Appearance Cloudy A (Clear) Urine pH 5.5 (4.5-7.5) Ur Specific [place] 1.023 (1.000-1.030) Urine Protein Negative (Negative) Urine Glucose (UA) Negative (Negative) Urine Ketones Trace H (Negative) Urine Blood Negative (Negative) Urine Nitrite Negative (Negative) Urine Bilirubin Negative (Negative) Urine Urobilinogen Negative (Negative) Ur Leukocyte Esterase Trace H (Negative) Urine WBC (Auto) 5-10 H (0-5) /hpf Urine RBC (Auto) 0-4 (0-4) /hpf U Hyaline Cast (Auto) 1-5 (0-5) /lpf U Epithel Cells (Auto) >30 H (0-5) /lpf Urine Bacteria (Auto) 1+ H (Negative) Urine Mucus Present A (None Prsent) PG Care Time/CCT Total # of Minutes Spent Total Time Spent with Patient: Total time spent is greater than 50% in coordination of care (as documented) at patient's floor/unit and/or counseling patient: Coding Level of Care Code 19512 Subseq Hosp Care Lvl 3 Diagnoses Pneumonia J18.9 Abnormal LFTs R94.5 Chronic respiratory failure J96.10 HTN (hypertension) I10 GERD (gastroesophageal reflux disease) K21.9 Back pain M54.9 Hypomagnesemia E83.42 Hypokalemia E87.6 Diabetes mellitus E11.9 Vitamin D deficiency E55.9
[2021-03-10] MEDS ORDERED: VANCOMYCIN TROUGH ONE (09:30)
[2021-03-10 09:38] LABS: Albumin Level 2.3 gm/dl (3.4-5.0); Bilirubin Direct 0.2 mg/dl (0-0.2); Bilirubin,Total 0.4 mg/dl (0.2-1); Total Protein 6.9 gm/dl (6.4-8.2)
[2021-03-10] MEDS: INSULIN ASPART 100 UNITS/ML VIAL SC SCH ×4 (09:51→21:50)
[2021-03-10] MEDS: METOPROLOL TARTRATE 25 MG TAB PO SCH ×2 (09:52→22:01)
[2021-03-10] MEDS: FLUTICASONE/VILANTEROL 100/25MCG 14 PUFFS/INHALER INH SCH (09:52)
[2021-03-10] MEDS: UMECLIDINIUM BROMIDE 62.5MCG/BLISTER 7 PUFFS/INHALER INH SCH (09:54)
[2021-03-10] MEDS: VANCOMYCIN HCL 1,250 MG in SODIUM CHLORIDE 0.9% 250 ML IV SCH ×2 (09:55→22:19)
--- NOTE | 2021-03-10 11:19 | Pharmacy Report ---
Pharmacy Vanc AUC Short Note - Date of Service March 10, 2021 - Assessment & Plan Assessment 03/10/21: * ID consult pending. Pulm consulted and defers to ID for recs in terms of Aspergillosis. LFTs slightly improved, but remain elevated. * UCx pending. Sputum cx pending (gram stain: moderate gm positive cocci) * Vanc trough level obtained this morning (13.7mcg/mL) indicates that current dosing regimen remains appropriate. 03/09 * 65 year old F admitted yesterday secondary to abnormal blood work. * PMHx significant for COPD, recurrent pneumonia, psoriasis, current every day smoker, and MRSA septicemia. * H/o infections with MRSA, ESBL E. coli and Aspergillus * Presented to [facility] with UTI growing E. coli and with elevated LFTs. 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 * Voriconazole stopped secondary to elevated LFTs. Started on Ambisome which was stopped due to patient having back pain (12% incidence with Ambisome in postmarketing analysis). Will await Pulmonology's input prior to any further antifungal therapy. May need ID consult. * Afebrile. Mild leukocytosis. Renal fxn stable. Ertapenem for pulm/uti and Vanc for h/o MRSA. Plan Vancomycin * AUC/HARLEEN is the preferred PK/PD target for vancomycin * AUC guided dosing is effective and associated with decreased risk of nephrotoxicity compared to traditional trough targets * Goal AUC/HARLEEN and trough of 400-600 mg/L.hr and 15-20 mcg/mL, respectively. * Loading Dose: 2000 mg (24 mg/kg) IV x 1 * Maintenance Dose: 1250 mg (15 mg/kg) IV every 12 hours * Trough level 03/10: 13.7mcg/mL * Continue Vancomycin 1250mg IV q12h * Dosing regimen is expected to achieve a steady-state AUC/HARLEEN and trough of 493 mg/L.hr and 14.5 mcg/mL, respectively. * Regimen is associated with a 10% risk of nephrotoxicity. * If patient remains on vancomycin therapy, will obtain another vanc level in 2- 3 days. Pharmacy will continue to follow and will adjust dose/frequency as necessary. Thank you.
[2021-03-10] MEDS: PANTOprazole 40 MG TAB PO SCH (11:33)
[2021-03-10] MEDS ORDERED: ERGOCALCIFEROL 50,000 UNITS 1250 MCG CAP PO SCH (12:45)
[2021-03-10] MEDS: ACETAMINOPHEN 325 MG TAB PO PRN ×2 (16:14→23:48)
--- NOTE | 2021-03-10 16:32 | Pulmonology Progress Note ---
Date of Service March 10, 2021 Assessment & Plan (1) Right lower lobe pneumonia: Pneumonia type: due to unspecified organism Qualified Code(s): J18.9 - Pneumonia, unspecified organism (2) COPD (chronic obstructive pulmonary disease): COPD type: COPD with acute exacerbation Qualified Code(s): J44.1 - Chronic obstructive pulmonary disease with (acute) exacerbation (3) History of pulmonary aspergillosis: (4) Abnormal LFTs: (5) Bronchiectasis: (6) Tobacco use: (7) Hx of multiple pulmonary nodules: Plan: Attending: Dr. Choudhury Impression: There is a 65-year-old female with a complicated pulmonary history. She currently follows with Dr. Verde in [place]. Previously failed she followed with Dr. Ho who retired and referred her to [place] prior to his snf. She has a history of COPD and bronchiectasis and was recently diagnosed with aspergillosis by sputum sample and was started on voriconazole the first week of December 2020. She currently has elevated LFTs. Pulmonary was consulted for further comment on pneumonia and aspergillosis treatment. [facility] records from [facility] have been requested but not yet received. Infectious disease has also not contacted the patient for consult as placed. Recommendations: 1. Aspergillosis: * Patient started on voriconazole first week of December 2020. * Hold further treatment at this time secondary to LFT elevation. * Consult infectious disease -still awaiting consult note from ID * Continue hypertonic saline to induce sputum * Sputum culture obtained. Initial reading is Staphylococcus species. ID and sensitivities are pending. MRSA screening of the nose has been requested * Repeat chest x-ray in the morning 2. COPD: * Patient with no evidence of exacerbation at this time * Patient now requiring supplemental oxygen for exertion. At rest patient is at 93-94%. With exertion patient drops as low as 85%. Nasal cannula placed at 2 L/min and patient recovers to 98% very quickly. Will need two step prior to discharge * Continue home medications * Duo nebs as needed * No wheezes on examination. Would hold off on steroids at this time. 3. Pneumonia: * Unclear if this is acute or chronic * Continue treat with antibiotics empirically for 14 days * Records requested from [facility] * Continue with aggressive pulmonary toilet * Procalcitonin 0.19 -no indication to trend 4. Multiple pulmonary nodules and question of pulmonary mass: * This appears to be new on CT scan of the chest. [facility]. However, unclear what imaging has been done by the [place] pulmonary group and whether there is ongoing treatment * Patient is unable to give us history * Have requested records from [facility] and are still awaiting * Await further plans for biopsy or intervention until [facility] records are reviewed 5. Bronchiectasis: * Chronic * Decreased breath sounds * Hypertonic saline * Pulmonary toilet * Incentive spirometry * Flutter valve 6. Tobacco abuse: * Continue to encourage tobacco abstention * Patient has tried to cut back unsuccessfully * is also a smoker Thank you for including us in the care of this patient. We will continue to follow along with you. Please refer to Dr. Choudhury's addendum for further recommendations Admission and Anticipated Discharge Date Admission Date: March 08, 2021 Supervising Physician Co-Signing Physician Notes I saw and evaluated the patient with Rosendo Pratt, and agree with findings and plan as documented in the note. Patient seen and examined at bedside. No acute distress. Patient was following up with Dr. Ho and transition her care to Dr. Zapata at [place] She has history of bronchiectasis She is active smoker. She was recently started on voriconazole for Aspergillus in the sputum. Her liver function were found to be elevated and voriconazole started Constitutional: No acute distress HEENT: EOMI, PERRLA Respiratory system: Decreased antibiotic, no wheeze, no rhonchi, positive crackles bilaterally more on the left side CVS: S1-S2 positive, no murmurs or gallops Abdomen: Soft, nontender, nondistended, positive bowel sounds x4, obese Extremities: +2 pulses bilaterally radialis/ dorsalis pedis, no cyanosis, no edema Neuro: Awake alert oriented x3 Psych: Normal mood and affect G/U: No Downing Plan: Continue with antibiotics for pneumonia Continue with O2 supplementation to keep oxygen between 90-92% Patient might need to step prior to be discharged home Please note the above document was generated using voice recognition software. It may contain grammatical, syntax or spelling errors.Any formal questions or concerns about the content, text or information contained within the body of this dictation should be directly addressed to the provider for clarification. Subjective Attending: Dr. Choudhury Patient sen and examined at bedside. Her is present. She has not had any fever. She has only clear sputum. No hemptysis. Patient states that she has not had a call from [place] yet. Awaiting consult note from them Review of Systems Review of Systems: All systems reviewed & are unremarkable except as noted in Subjective Physical Exam Physical Exam: Patient seen and examined at bedside. Please see Dr. Choudhury's addendum for physical examination Results & Data Results & Data ([facility]) Vital Signs (Past 12 Hours) Vital Signs Temp Pulse Resp BP Pulse Ox Pulse Ox 03/10/21 15:01 36.9 C 78 16 157/84 H 91 03/10/21 14:41 92 03/10/21 14:38 94 03/10/21 11:48 73 18 94 03/10/21 08:20 37.3 C 85 16 155/84 H 91 03/10/21 06:58 78 18 92 Laboratory Results 03/10/21 05:33 03/10/21 05:33 Diagnostic Findings No further diagnostic imaging PG Care Time/CCT Total # of Minutes Spent Total Time Spent with Patient: Total time spent is greater than 50% in coordination of care (as documented) at patient's floor/unit and/or counseling patient:30 minutes. Patient seen with present Coding Level of Care Code 88246 Subseq Hosp Care Lvl 2 Diagnoses Right lower lobe pneumonia J18.9 Pneumonia type: due to unspecified organism COPD (chronic obstructive pulmonary disease) J44.1 COPD type: COPD with acute exacerbation History of pulmonary aspergillosis Z86.19 Abnormal LFTs R94.5 Bronchiectasis J47.9 Tobacco use Z72.0 Hx of multiple pulmonary nodules Z87.898 Time Spent (min) 30
[2021-03-10] MEDS: ERTAPENEM SODIUM 1,000 MG in SODIUM CHLORIDE 0.9% 50 ML IV SCH (17:01)
[2021-03-10] MEDS: clonazePAM 1 MG TAB PO PRN (22:19)
[2021-03-11] MEDS: ALBUT/IPRATROP 3MG/0.5MG NEB 3 ML VIAL INH SCH ×3 (00:01→13:50)
[2021-03-11] MEDS: SODIUM CHLOR 7% 4 ML NEB NEB SCH (07:50)
--- NOTE | 2021-03-11 08:11 | XRay Report ---
XR chest 1V portable HISTORY: Aspergillosis, pneumonia COMPARISON: Chest CT 03/08/2021. FINDINGS: Persistent consolidation within the right lung base. Stable mild volume loss within the rig ht hemithorax. No pneumothorax. No pleural effusions. Left basilar interstitial thickening remains un changed. The heart remains mildly enlarged. Mild diffuse interstitial thickening persists. IMPRESSION: 1. No change in the bibasilar densities, right greater than left. 2. Stable cardiomegaly and chronic interstitial thickening. ACT 112: Negative or not required by law. Electronically signed by: Rinku Key M.D. 03/11/2021 8:10 AM
--- NOTE | 2021-03-11 08:35 | Hospitalist Progress Note ---
Date of Service March 11, 2021 Assessment & Plan (1) Pneumonia: Plan: Patient with significant changes of the imaging of her lung CT Chest: IMPRESSION: 1. There is complete opacification the right middle lobe bronchus with near complete collapse the right middle lobe. There is a thin sliver of aerated right middle lobe remaining. This is likely due to mucoid opacification of the right middle lobe bronchus possibly from aspiration. A central obstructing mass would be the diagnosis of exclusion. Therefore, follow-up bronchoscopy recommended. 2. Lobular area of consolidation within the right lower lobe posteriorly which measures approximately 6.2 x 5.1 cm. This is new from the prior study. This demonstrates slight mass effect along the right lower lobe bronchi. There are a few additional subcentimeter satellite nodular densities within the right lower lobe some which demonstrate a tree-in-bud pattern. This favors a pneumonia. An underlying pulmonary mass would be the diagnosis of exclusion given the slight mass effect along the right lower lobe bronchi. Therefore, follow-up to resolution or bronchoscopy is recommended for further evaluation. 3. Chronic left lower lobe bronchiectasis, bronchial wall thickening, mucous plugging, and airspace opacities. 4. Mild mediastinal and right hilar lymphadenopathy. This may be reactive. 5. Chronic pulmonary arterial hypertension again noted. Had been on Voriconazole since d/c from hospital in November and was to remain on this until at least the end of February. Was taking up until Sunday for last dose she believes. (daughter interestingly with hx aspergillosis ~8 yrs ago requiring removal of piece of lung for tx) --> causing elevated LFTs and this was held Got ampho B x 1 dose, back pain and refusing further. Pulmonary consult -- would tx 14days abx for pna and have her follow up with usual talent acquisition associate. awaiting ID input and would hold off VOriconazole for now. --> did have significant eosinophilia at time of presentation and additional studies ordered Aspergillosis was diagnosed on sputum cx [place] during hospitalization-- requesting records of such from both Pulmonary office and [place] d/c summary * Awaiting further plans for biopsy or intervention until [facility] records are reviewed Continues on Vancomycin and Ertapenem given hx MRSA infections Sputum cx with staph species -- follow Continue nebs, hypertonic saline nebs, chest physiotherapy, incentive spirometer and flutter valve WBC wnl, remains afebrile Does have desaturations on room air at times and will need formal 2step prior to dc (she has O2 at home but only using when needed..suspect would need w activity) Of note, she is also to start Neulasta by her talent acquisition associate to help fight off infections given continued issues. Would benefit from f/u rheumatology outpatien t for possible RA as well Continue to monitor (2) Abnormal LFTs: Plan: 2nd to voriconazole Did get dose ampho B as above, no further voriconazole FOR NOW until records received/pulm recs AST/ALP trending down but still elevated Avoid other hepatoxic medications Continue to trend (3) Chronic respiratory failure: Plan: Patient has a history of asthma/COPD and chronic respiratory failure Has O2 at home to use as needed Currently on room air but O2 does dip down at times Records requested as above, pulm on consult continue nebs, pulmonary toilet will need f/u with her pulmonary doc at d/c (4) HTN (hypertension): Plan: BP 157/84 Continue metoprolol (5) GERD (gastroesophageal reflux disease): Plan: Continue protonix (6) Back pain: Plan: reported after ampho b -- does have 12% post-marketing reported of such holding off on further ampho B as above no further issues (7) Hypomagnesemia: Plan: Mag 1.7 -- replacement ordered also replacement of K 3.4 RESOLVED ON AM LABS (8) Hypokalemia: Plan: replacement ordered, RESOLVED (9) Diabetes mellitus: Plan: new diagnosis here last admission however patient states she is borderline. Discussed probably worse with frequent steroid use as well A1c 7.3 in system and did discuss with patient Will place on SSI while inpatient and consider agent at d/c however patient hesitant at this time --> BSGs acceptable Already has neuropathy and discussed this could worsen along with other complications and would be better if better controlled (10) Vitamin D deficiency: Plan: Ca elevated in past. skeletal structures osteopenic on imaging and checked Vit D level --> low at 11. Start 50,000 weekly vitamin D, continue at d/c PTH appropriately elevated given vit D deficiency Plan: continued inpatient stay discussed with pulm and will hold off chemoproph for now in case of bronch ID consult pending likely to remain inpatient couple more days of note, patient with home on IV abx in past and PICC line if needed. CM alerted in event we need IV abx for d/c as appears prior admits needed to remain on IV for invasive infection without appropriate coverage for lung w [place] Admission and Anticipated Discharge Date Admission Date: March 08, 2021 Results & Data Results & Data ([facility]) Vital Signs (Past 12 Hours) Vital Signs Temp Pulse Resp BP Pulse Ox 03/11/21 07:51 79 18 92 03/11/21 07:46 36.8 C 71 16 162/71 H 93 03/10/21 23:19 37.4 C 78 18 169/91 H 94 PG Care Time/CCT Total # of Minutes Spent Total Time Spent with Patient: Total time spent is greater than 50% in coordination of care (as documented) at patient's floor/unit and/or counseling patient: Coding Diagnoses Pneumonia J18.9 Abnormal LFTs R94.5 Chronic respiratory failure J96.10 HTN (hypertension) I10 GERD (gastroesophageal reflux disease) K21.9 Back pain M54.9 Hypomagnesemia E83.42 Hypokalemia E87.6 Diabetes mellitus E11.9 Vitamin D deficiency E55.9
[2021-03-11] MEDS: INSULIN ASPART 100 UNITS/ML VIAL SC SCH ×2 (08:47→12:55)
[2021-03-11 09:08] LABS: Hematocrit (blood only) 36.5 % (37-47); Hemoglobin 11.1 g/dL (12.0-16.0); Mean Corpuscular Hemoglobin 28.3 pg (25-34); Mean Corpuscular Hgb Conc 30.4 g/dL (32-36); Mean Corpuscular Volume 93.1 fL (80-100); Mean Platelet Volume 9.9 fL (7.4-10.4); Platelet Count 494 K/uL (130-400); RDW Coefficient of Variation 15.5 % (11.5-14.5); RDW Standard Deviation 52.4 fL (36.4-46.3); Red Blood Count 3.92 M/uL (4.2-5.4); White Blood Count 9.34 K/uL (4.8-10.8)
[2021-03-11] MEDS: VANCOMYCIN HCL 1,250 MG in SODIUM CHLORIDE 0.9% 250 ML IV SCH (09:38)
[2021-03-11] MEDS: UMECLIDINIUM BROMIDE 62.5MCG/BLISTER 7 PUFFS/INHALER INH SCH (09:39)
[2021-03-11] MEDS: FLUTICASONE/VILANTEROL 100/25MCG 14 PUFFS/INHALER INH SCH (09:39)
[2021-03-11 09:41] LABS: Albumin Level 2.3 gm/dl (3.4-5.0); Bilirubin Direct 0.2 mg/dl (0-0.2); Calcium 10.1 mg/dl (8.5-10.1); Creatinine Clr Calc Pharmacy 102.5 ml/min; Est GFR (African American) 113.4 ml/min; Est GFR (Non-African American) 97.8 ml/min; Potassium 4.3 mmol/L (3.5-5.1)
[2021-03-11 09:44] LABS: Bilirubin,Total 0.3 mg/dl (0.2-1); Total Protein 6.7 gm/dl (6.4-8.2)
[2021-03-11] MEDS: METOPROLOL TARTRATE 25 MG TAB PO SCH (09:50)
[2021-03-11] MEDS: PANTOprazole 40 MG TAB PO SCH (09:50)
--- NOTE | 2021-03-11 12:04 | Discharge Summary ---
Date of Service March 11, 2021 Admission HPI Per Admitting Provider 65-year-old female sent to the ER for abnormal laboratories by her outpatient presetter operator. 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 Her LFTs had been going up over the last few checks and today she was told to present because they were higher than they had been. She seeks her care in the [facility] system with Dr Mehreen Lundberg. Upon presentation here the patient has newfound lung infiltrates with complete occlusion of the right middle lobe and a new right lower lobe lesion. Patient was given amphotericin in the ER but did have a reaction. Patient will be admitted for evaluation of her lung lesions. She is also begun on antibacterial treatment for possible bacterial pneumonia. She will have coverage for both gram-negative's and MRSA. Pending pulmonary consultation. Patient is currently stable in the emergency department Admission Exam Per Admitting Provider The patient appeared well nourished and normally developed. Vital signs as documented. Head exam is normocephalic atraumatic Neck is without JVD, thyromegaly, or carotid bruits. Lungs are with reasonable air movement she is some rhonchorous breath sounds in the right mid and lower lung field and also the left base there is no egophony or dullness to percussion Cardiac exam, Rhythm is regular.. No murmurs, rubs or gallops. Abdominal exam reveals normal bowel sounds, soft non tender, no masses Extremities are nonedematous and both pedal pulses are present Neurologic exam is alert and oriented, no focal loss of strength or sensation Skin is without bruises or rashes Psychologically is without concerns for anxiety or depression Principal Diagnosis MRSA Pneumonia Discharge Exam WD/WN, 65yo female, chronically ill appearing but in no acute distress Eyes anicteric without abn ENT: mmm, trachea midline Neck: trachea midline without deviation Resp: no accessory muscle use or tachypnea, auscultation with end expiratory wheezing (decreased), some rhonchi posterior lung buenrostro R mid/lower lobe coarse breath sounds/crackles L base, overall with improved aeration though and on 2L NC with SPo2 95% CV: RRR, no r/m/g GI: +BS, soft, non-tender : no lassiter Skin; cool, dry, no obvious lesions/rashes. hands with evidence of RA Psych: AOx3, pleasant and cooperative, some anxiety when talking about son's passing in past 2 years Discharge Data Allergies Allergy/AdvReac Type Severity Reaction Status Date / Time cephalexin Allergy Severe Unknown Verified 03/08/21 15:23 Iodinated Contrast Media Allergy Severe HIVES Verified 03/08/21 15:23 loracarbef Allergy Intermediate "THINK IT Verified 03/08/21 15:23 WAS A RASH" coffee (Coffea arabica) Allergy Unknown POSITIVE Verified 03/08/21 15:23 ALLERGY TEST mustard AdvReac Unknown POSITIVE Verified 03/08/21 15:23 ALLERGY TEST Consultations 03/08/21 16:21 ED Decision to Admit Stat 03/08/21 16:48 Consult Pulmonology Routine 03/09/21 13:34 Consult Health Information Management Routine 03/09/21 16:22 Consult Health Information Management Routine 03/09/21 16:31 Consult Infectious Diseases Routine Ordered Studies 03/08/21 15:09 CT chest diagnostic wo con Stat Hospital Course (1) Pneumonia: Patient with significant changes of the imaging of her lung CT Chest: IMPRESSION: 1. There is complete opacification the right middle lobe bronchus with near complete collapse the right middle lobe. There is a thin sliver of aerated right middle lobe remaining. This is likely due to mucoid opacification of the right middle lobe bronchus possibly from aspiration. A central obstructing mass would be the diagnosis of exclusion. Therefore, follow-up bronchoscopy recommended. 2. Lobular area of consolidation within the right lower lobe posteriorly which measures approximately 6.2 x 5.1 cm. This is new from the prior study. This demonstrates slight mass effect along the right lower lobe bronchi. There are a few additional subcentimeter satellite nodular densities within the right lower lobe some which demonstrate a tree-in-bud pattern. This favors a pneumonia. An underlying pulmonary mass would be the diagnosis of exclusion given the slight mass effect along the right lower lobe bronchi. Therefore, follow-up to resolution or bronchoscopy is recommended for further evaluation. 3. Chronic left lower lobe bronchiectasis, bronchial wall thickening, mucous plugging, and airspace opacities. 4. Mild mediastinal and right hilar lymphadenopathy. This may be reactive. 5. Chronic pulmonary arterial hypertension again noted. Had been on Voriconazole since d/c from hospital in November and was to remain on this until at least the end of February. Was taking up until Sunday for last dose she believes. (daughter interestingly with hx aspergillosis ~8 yrs ago requiring removal of piece of lung for tx) --> causing elevated LFTs and this was held Got ampho B x 1 dose, back pain and refusing further. Pulmonary consult -- would tx abx for pna and have her follow up with usual presetter operator. awaiting ID input and would hold off Voriconazole for now. --> did have significant eosinophilia at time of presentation and additional studies ordered -- A fumigatus Allergy IgE, ASM, IgG, A galactomanna Ag Aspergillosis was diagnosed on sputum cx [place] during hospitalization-- requesting records of such from both Pulmonary office and [place] d/c summary * Awaiting further plans for biopsy or intervention until [facility] records are reviewed -- per pulm, would rec f/u with her usual pulm for bronch Empirically Vancomycin and Ertapenem given hx MRSA infections --d/c Ertapenem after sputum cx with MRSA WBC wnl, remained afebrile Continue nebs, hypertonic saline nebs, chest physiotherapy, incentive spirometer and flutter valve Of note, she is also to start Neulasta by her presetter operator to help fight off infections given continued issues. Would benefit from f/u rheumatology outpatient for possible RA as well -- defer to PCP for ref 2step done prior to d/c --> 2 Step with 1L at rest, 2L with ambulation. bringing in portable tank as they already had at home ID consultation -- discussed with Dr. Nuno and ok with transitioning to PO Bactrim as plans for d/c today, continued 7-10days (extended to 10 given recurrent infxn) She was to be on the hypertonic soln BID at home -- new rx provided and sent at d/c She is to f/u with her presetter operator for bronch in upcoming week (2) Abnormal LFTs: 2nd to voriconazole Did get dose ampho B as above, no further voriconazole FOR NOW until records r eceived/pulm recs -- holding off on further Voriconazole and patient to f/u with pulm prior to resuming AST/ALP trending down but still elevated Avoid other hepatoxic medications (3) Chronic respiratory failure: Patient has a history of asthma/COPD and chronic respiratory failure Has O2 at home to use as needed Had been on room air at times, but 2step with need for 1L NC at rest, 2L with activity Encouraged continued smoking cessation Continue pulmonary toilet at discharge (4) HTN (hypertension): Continued metoprolol (5) GERD (gastroesophageal reflux disease): Continued protonix (6) Back pain: reported after ampho b -- does have 12% post-marketing reported of such holding off on further ampho B as above no further issues (7) Hypomagnesemia: Mag 1.7 -- replacement ordered also replacement of K 3.4 resolved on repeat (8) Hypokalemia: replacement ordered, RESOLVED (9) Diabetes mellitus: new diagnosis here last admission however patient states she is borderline. Discussed probably worse with frequent steroid use as well A1c 7.3 in system and did discuss with patient Will place on SSI while inpatient and consider agent at d/c however patient hesitant at this time --> BSGs acceptable Already has neuropathy and discussed this could worsen along with other complications and would be better if better controlled --> discussed would further discuss with PCP but ideally should be on medications for management (10) Vitamin D deficiency: Ca elevated in past. skeletal structures osteopenic on imaging and checked Vit D level --> low at 11. PTH appropriately elevated given vit D deficiency Start 50,000 weekly vitamin D, continue at d/c discharged on PO Bactrim per discussion with ID continue pulm toilet at d/c f/u Dr Verde per pulmonary for bronch/need for continued voriconazole treatment Total Time Total Time Spent Total Time Spent (In Minutes): 50 Discharge Plan Discharge Items Patient Disposition: Home - Self-Care Reason For Visit: PNEUMONIA, CHEMICAL HEPATITIS Discharge Diagnosis: MRSA Pneumonia Goals: You have been hospitalized for an acute medical problem. During your stay at [facility], we have made an effort to correct the problem that brought you to the hospital while keeping you as comfortable as possible. Medications were used to bring your condition under control and your discharge instructions will include directions for any medications you should take after leaving the hospital. Please make sure you see your Primary Care Provider as part of your follow up plan. Activity: Resume your previous activity Non-emergency contact: Primary Care Provider and Locom[employer] Call non-emergency contact if: you have any medication questions, your symptoms worsen and you have a fever Follow-up/Referrals: Marta Greenwood D.O. [Primary Care Provider] - Thierno Verde MD [Outside Practitioners] - 03/14/21 11:15 am (within 1 week) Diet: Carb Consistent or DM2 and Heart Healthy Addtl Attending Provider Instructions: you have been hospitalized for concerns for pnuemonia on imaging as well as need for bronchoscopy pulmonary was consulted given prior history of aspergillus and on voriconazole for treatment. your labs remained stable but ID was consulted and they are in agreement with pulmonary at this facility to hold off on bronch for now and continue treatment with Bactrim for a MRSA pneumonia, and MRSA grew out in your sputum culture. You will continue this treatment for a total of 10 days. You have another seven days of treatment after your dose tonight, which will be TWICE daily to complete treatment. You VItamin D level was also low, and you were given replacement. You should c ontinue this once weekly to help bring down calcium levels which can contribute to judy pain. As discussed previously, you will need to have close follow up with your presetter operator next week to monitor your progress, start/continue the Nulasta, and to consider bronch in upcoming future to rule out any underlying malignancy. It is strongly encouraged to quit smoking to prevent worsening of disease process and pulmonary complications. You should continue your nebulizer treatments as previously taking, and have been sent a new prescription for the hypertonic saline solution as you previously ran out. Please follow up with your PCP to continue to monitor your A1c as you are technically new diabetic, likely from chronic/frequent steroid use, and should watching your dietary intake. Decision was declined to start any new medications at this time but if remains elevated on repeat as outpatient you should strongly consider starting medication to help bring your sugars down. You may also want to consider following up or getting a referral to Rheumatology for likely underlying rheumatoid arthritis given your joint findings on exam. Please return to the closest emergency department with any fever, increased shortness of breath, chest pain, or for any other symptoms concerning for you. It has been a pleasure being a part of the medical team providing for you while you have been in the hospital. Pending Studies at Discharge: Yes Studies:: A fumigatus Allergy IgE, ASM, IgG, A galactomanna Ag Stand-Alone Forms: My [facility], Smoking Cessation Medications and DC Order Prescriptions: New sodium chloride 7 % Solution For Nebulization 4 ml NEB BIDR 30 Days Qty: 240 RF: 0 ergocalciferol (vitamin D2) 1,250 mcg (50,000 unit) Capsule 50,000 unit PO Q7D@0900 Qty: 4 RF: 0 sulfamethoxazole-trimethoprim [Bactrim DS] 800-160 mg tablet 1 tab PO BID 7 Days Qty: 15 RF: 0 Continued aspirin [Adult Low Dose Aspirin] 81 mg tablet,delayed release (DR/EC) 81 mg PO DAILY RF: 0 metoprolol tartrate 25 mg tablet 25 mg PO BID RF: 0 pantoprazole [Protonix] 40 mg tablet,delayed release (DR/EC) 40 mg PO DAILY RF: 0 Spiriva Respimat 1.25 mcg/actuation mist 2 inh inhalation DAILY Qty: 4 RF: 5 acetaminophen 325 mg tablet 650 mg PO Q4H PRN (Reason: Pain) RF: 0 Symbicort 160-4.5 mcg/actuation HFA aerosol inhaler 2 puffs INH BID Qty: 10.2 RF: 7 clonazepam 1 mg tablet 1 mg PO BID PRN (Reason: Anxiety) RF: 0 ipratropium-albuterol 0.5 mg-3 mg(2.5 mg base)/3 mL solution for nebulization 3 ml INH QID PRN (Reason: Shortness Of Breath Or Wheezing) RF: 0 albuterol sulfate 90 mcg/actuation HFA aerosol inhaler 2 inh INH QID PRN (Reason: Shortness Of Breath) RF: 0 Discontinued amoxicillin-pot clavulanate 875-125 mg tablet 1 tab PO BID RF: 0 voriconazole 200 mg tablet 200 mg PO BID RF: 0 Discharge Orders: Discharge Order (Routine); Ordered 03/11/21 Ordered By: Deanne Meyer/Other Patient Handouts: Chest and Lung Problems, Preventing Pneumonia Admission Data Admit Date/Time: 03/08/21 16:49 Attending Provider: Terell Gastelum Admit Provider: Pal Guthrie Primary Care Provider: Marta Greenwood Other Providers: Pal Guthrie ; Latisha Choudhury ; [facility] ; Hamilton Daniel ; Ariadne Nunez ; Pramod Meng I. ; Josias Valadez II ; Zara Nuno ; Helio Benitez ; Armond Pitts Other Interventions: Discharge Summary Assessment (RN) Last Done: 03/11/21 14:45 Supervising Physician Co-Signing Physician Notes During face to face encounter, had a brief discussion about hospital course and compelted physical exam. Answered all of the patient's questions. Reviewed above note and agree with it. Discussed discharge plan with patient and APC Mejía. Patient will be discharged withdx of pneumonia and quan consintue antibiotics. Discharge meds below. Coding Level of Care Code D/C DAY MANAGEMENT >30 MINS Diagnoses Pneumonia J18.9 Abnormal LFTs R94.5 Chronic respiratory failure J96.10 HTN (hypertension) I10 GERD (gastroesophageal reflux disease) K21.9 Back pain M54.9 Hypomagnesemia E83.42 Hypokalemia E87.6 Diabetes mellitus E11.9 Vitamin D deficiency E55.9
--- NOTE | 2021-03-11 12:54 | Pulmonology Progress Note ---
Date of Service March 11, 2021 Assessment & Plan (1) Right lower lobe pneumonia: Pneumonia type: due to unspecified organism Qualified Code(s): J18.9 - Pneumonia, unspecified organism (2) COPD (chronic obstructive pulmonary disease): COPD type: COPD with acute exacerbation Qualified Code(s): J44.1 - Chronic obstructive pulmonary disease with (acute) exacerbation (3) History of pulmonary aspergillosis: (4) Abnormal LFTs: (5) Bronchiectasis: (6) Tobacco use: (7) Hx of multiple pulmonary nodules: Plan: Attending: Dr. Choudhury Impression: There is a 65-year-old female with a complicated pulmonary history. She currently follows with Dr. Verde in [place]. Previously failed she followed with Dr. Ho who retired and referred her to [place] prior to his mcc. She has a history of COPD and bronchiectasis and was recently diagnosed with aspergillosis by sputum sample and was started on voriconazole the first week of December 2020 for a 6-week. She currently has elevated LFTs. Pulmonary was consulted for further comment on pneumonia and aspergillosis t reatment. Outside records from [facility] have been requested but not yet received. Infectious disease consult appreciated. Recommendations: 1. Aspergillosis: * Patient started on voriconazole first week of December 2020. * Hold further treatment at this time secondary to LFT elevation. Follow-up [facility] outpatient pulmonology office for further instructions * Consult infectious disease -continue Bactrim for 2 weeks * Continue hypertonic saline to induce sputum on discharge * Sputum culture positive for MRSA sensitive to Bactrim rifampin and vancomycin * Repeat chest x-ray in the morning 2. COPD: * Patient with no evidence of exacerbation at this time * Patient now requiring supplemental oxygen for exertion. At rest patient is at 93-94%. With exertion patient drops as low as 85%. Nasal cannula placed at 2 L/min and patient recovers to 98% very quickly. * Two step completed -patient to use 1 L by nasal cannula at rest and 2 L via nasal cannula with exertion. Patient has oxygen at home. Will need to update DME company for increased utilization. * Continue home medications * Duo nebs as needed * Faint wheezes on examination. Would not discharged on steroids. 3. Pneumonia: * Unclear if this is acute or chronic * Continue treat with antibiotics empirically for 14 days. Will use Bactrim as patient has MRSA in her sputum. * Records requested from [facility] and still pending * Continue with aggressive pulmonary toilet * Procalcitonin 0.19 -no indication to trend 4. Multiple pulmonary nodules and question of pulmonary mass: * This appears to be new on CT scan of the chest. [facility]. However, unclear what imaging has been done by the [place] [facility] and whether there is ongoing treatment * Patient is unable to give us history * Have requested records from [facility] and are still awaiting * Defer further biopsy or intervention to patient's access clinician Dr. Funez 5. Bronchiectasis: * Chronic * Decreased breath sounds somewhat improved today * Continue hypertonic saline and Rx on discharge * Pulmonary toilet * Continue incentive spirometry * Continue flutter valve 6. Tobacco abuse: * Continue to encourage tobacco abstention * Patient has tried to cut back unsuccessfully * is also a smoker Thank you for including us in the care of this patient. We will sign off at this time Please refer to Dr. Choudhury's addendum for further recommendations Admission and Anticipated Discharge Date Admission Date: March 08, 2021 Supervising Physician Co-Signing Physician Notes I saw and evaluated the patient with Rosendo Pratt, and agree with findings and plan as documented in the note. Patient seen and examined at bedside. No acute distress. Patient seen and examined at bedside. No acute distress, no events overnight Patient was saturating 95-96% on 2 L nasal cannula at rest Fair appetite Denies any hemoptysis No chest pain. Overall patient said that she is feeling better Constitutional: No acute distress HEENT: EOMI, PERRLA Respiratory system: Decreased antibiotic, no wheeze, no rhonchi, positive crackles bilaterally more on the left side CVS: S1-S2 positive, no murmurs or gallops Abdomen: Soft, nontender, nondistended, positive bowel sounds x4, obese Extremities: +2 pulses bilaterally radialis/ dorsalis pedis, no cyanosis, no edema Neuro: Awake alert oriented x3 Psych: Normal mood and affect G/U: No Downing Plan: Continue with antibiotics for pneumonia as per IDs recommendation 2 step prior to discharge to see the patient qualifies for oxygen Smoking cessation has been advised Continue with hypertonic saline and flutter valve at home as patient has bronchiectasis Follow-up galactomannan as well as Aspergillus IgE and IgG Please note the above document was generated using voice recognition software. It may contain grammatical, syntax or spelling errors.Any formal questions or concerns about the content, text or information contained within the body of this dictation should be directly addressed to the provider for clarification. Subjective Attending: Dr. Choudhury Patient seen and examined at bedside. She is doing much better. She still requires some oxygen to maintain SaO2 between 88 and 92%. I suspect that she will needed for ambulation and not at rest. She should continue to use her supplemental oxygen at home with sleep as previously directed. Patient states her sputum production is better. She does better with flutter valve and with a pneumo vest. She has no hemoptysis. No chest pain or tightness. She feels overall improved but still fatigued. She has no acute complaints. Review of Systems Review of Systems: All systems reviewed & are unremarkable except as noted in Subjective Physical Exam Physical Exam: Patient seen and examined at bedside in room [address] Choudhury's addendum for physical examination findings Results & Data Results & Data ([facility]) Vital Signs (Past 12 Hours) Vital Signs Temp Pulse Pulse Pulse Pulse Pulse Pulse 03/11/21 10:10 88 100 H 89 92 H 89 03/11/21 07:51 79 03/11/21 07:46 36.8 C 71 Resp Resp Resp Resp Resp Resp BP 03/11/21 10:10 22 22 22 22 20 03/11/21 07:51 18 03/11/21 07:46 16 162/71 H Pulse Ox Pulse Ox Pulse Ox Pulse Ox Pulse Ox Pulse Ox 03/11/21 10:10 92 92 88 L 92 88 L 03/11/21 07:51 92 03/11/21 07:46 93 Laboratory Results 03/11/21 08:18 03/11/21 08:18 Diagnostic Findings Chest X-Ray 03/11/21 07:00 XR chest 1V portable HISTORY: Aspergillosis, pneumonia COMPARISON: Chest CT 03/08/2021. FINDINGS: Persistent consolidation within the right lung base. Stable mild volume loss within the right hemithorax. No pneumothorax. No pleural effusions. Left basilar interstitial thickening remains unchanged. The heart remains mildly enlarged. Mild diffuse interstitial thickening persists. IMPRESSION: 1. No change in the bibasilar densities, right greater than left. 2. Stable cardiomegaly and chronic interstitial thickening. ACT 112: Negative or not required by law. Electronically signed by: Rinku Key M.D. 03/11/2021 8:10 AM PG Care Time/CCT Total # of Minutes Spent Total Time Spent with Patient: Total time spent is greater than 50% in coordination of care (as documented) at patient's floor/unit and/or counseling patient: Coding Level of Care Code 55118 Subseq Hosp Care Lvl 2 Diagnoses Right lower lobe pneumonia J18.9 Pneumonia type: due to unspecified organism COPD (chronic obstructive pulmonary disease) J44.1 COPD type: COPD with acute exacerbation History of pulmonary aspergillosis Z86.19 Abnormal LFTs R94.5 Bronchiectasis J47.9 Tobacco use Z72.0 Hx of multiple pulmonary nodules Z87.898 Time Spent (min) 20
[2021-03-12] MEDS ORDERED: VANCOMYCIN TROUGH ONE (09:30)
[2021-03-14 18:41] LABS: Asperg Fumig Class 1; Asperg Fumig IgE 0.36 kU/L; Aspergillus Ag Index 0.09 (<0.50); Aspergillus Antigen, Serum Not Detected (Not Detected); Rast Aspergillus fumigatus IgG 3.7 mcg/mL (<2.0)
== END 2021-03-11 16:00 | disposition home or self-care (01) | DRG 178 ==
LOC: ED 13:28 → 3W 16:49 → SUATTDRO 16:49 → 3W 21:19